=== PATIENT | female | born 1950 | race Caucasian/White ===

== ENCOUNTER → 2016-04-16 | Outpatient (CLI) | payer MEDICARE ==
[~2016-04-16] MED LIST: /WARF25TA; ACET65TA; CALC12502; CETI10TA; FLON0.05; FOSA5TAB; GLUC500T; PERC5TAB8; PRIL20CA; ZOCO40TA
--- NOTE | 2016-04-16 15:46 | REP ---
CHEST, TWO VIEWS: COMPARISON: 05/07/2015 Once again, there are fibrotic changes seen throughout the lung hamlin, status quo. Once again, there is evidence of lung field hyperexpansion and bullous emphysematous change, status quo. No acute patchy parenchymal opacities have developed. The heart is not enlarged. The osseous structures are stable and intact. IMPRESSION: Stable appearing chronic changes without plain radiographic evidence of acute cardiopulmonary disease. Signed by Behzad Fenton DO 04/16/2016 04:40 P
== END ==
LOC: M WUC 15:06
PROVIDERS: ATTEND Physician Assistant
DX: J44.1 Chronic obstructive pulmonary disease with (acute) exacerbation (principal)

== ENCOUNTER → 2016-09-25 | Outpatient (CLI) | payer MEDICARE ==
--- NOTE | 2016-09-26 07:54 | REP ---
Left fifth toe series: Four views. History: Contusion. Findings: There is a nondisplaced but slightly angulated fracture of the proximal phalanx, apex medial. There is also a chip fracture of the distal phalanx. There is associated soft-tissue swelling of the fifth toe. Impression: Fifth proximal and distal phalangeal fractures. Signed by Pepe Lundy MD 09/26/2016 08:59 A
== END ==
LOC: M WUC 14:01
PROVIDERS: ATTEND Physician Assistant
DX: S92.515A Nondisplaced fracture of proximal phalanx of left lesser toe(s), initial encounter for closed fracture (principal); S92.535A Nondisplaced fracture of distal phalanx of left lesser toe(s), initial encounter for closed fracture; X58.XXXA Exposure to other specified factors, initial encounter; Y93.9 Activity, unspecified; Y92.9 Unspecified place or not applicable; Y99.8 Other external cause status

== ENCOUNTER → 2016-10-19 | Outpatient (CLI) | payer MEDICARE ==
[~2016-10-19] MED LIST changes: +ALB2.5NEB NEB; +ASPI81TAEC PO; +AZEL0.1S3; +BUPR15TASR; +CALC1TAB30 PO; +CETI10TA PO; +DEXT30SUSP PO; -GLUC500T; +GLUC500T PO; +LEVA750T7 PO; +MONT10TA2 PO; +NICO14PA TD; +OMEP40CA2 PO; +PARO20TA3 PO; +PRAV80TA2 PO; +PRED20TA PO; -PRIL20CA; +PRIL20CA PO; +PROAAER10 INH; +SPIR12.9 INH; +SYMB16INH INH; +SYMBICORT
--- NOTE | 2016-10-19 18:57 | REP ---
HISTORY: Pain to the 5th digit of the left foot. COMPARISON: None. There is a mid diaphyseal fracture of the proximal phalanx of the fifth digit with lateral angulation. Signed by Behzad Fenton DO 10/19/2016 07:52 P
== END ==
LOC: M WUC 17:01
PROVIDERS: ATTEND Physician Assistant
DX: S92.512A Displaced fracture of proximal phalanx of left lesser toe(s), initial encounter for closed fracture (principal); X58.XXXA Exposure to other specified factors, initial encounter; Y93.9 Activity, unspecified; Y92.9 Unspecified place or not applicable; Y99.8 Other external cause status

== ENCOUNTER → 2016-12-07 | Outpatient (REF) | payer MEDICARE ==
[2016-12-07 16:27] LABS: BLOOD UREA NITROGEN 13 MG/DL (7-18); CREATININE FOR GFR 0.93 MG/DL (0.55-1.02); GLOMERULAR FILTRATION RATE > 60.0 (>45)
== END ==
LOC: M LABDRAW1 13:01
PROVIDERS: ATTEND Physician Assistant Surgical
DX: R22.41 Localized swelling, mass and lump, right lower limb (principal)

== ENCOUNTER 2017-01-12 17:39 | Inpatient (IN) | payer MEDICARE ==
[~2017-01-12] VITALS: Ht 157.5 cm; Wt 64.8 kg
[~2017-01-12 17:39] MED LIST changes: -ALB2.5NEB NEB; -ASPI81TAEC PO; -AZEL0.1S3; -BUPR15TASR; -CALC1TAB30 PO; -CETI10TA; -DEXT30SUSP PO; -LEVA750T7 PO; -MONT10TA2 PO; -NICO14PA TD; -OMEP40CA2 PO; -PARO20TA3 PO; -PRAV80TA2 PO; -PRED20TA PO; -PROAAER10 INH; -SPIR12.9 INH; -SYMB16INH INH; -SYMBICORT
[2017-01-12] MEDS ORDERED: MONT10TA2 PO (17:53)
[2017-01-12] MEDS ORDERED: SYMBICORT (17:53)
[2017-01-12] MEDS ORDERED: CETI10TA (17:53)
[2017-01-12] MEDS ORDERED: SPIR12.9 INH (17:53)
[2017-01-12] MEDS ORDERED: BUPR15TASR (17:53)
[2017-01-12 18:29] LABS: BASO # 0.1 10^3/uL (0.0-0.2); BASO % 0.4 % (0.0-1.0); EOS # 0.1 10^3/uL (0.0-0.50); EOS % 0.6 % (0.0-3.0); IMMATURE GRANULOCYTE % 0.3 % (0-0); LYMPH % 11.3 % (24.0-44.0); MEAN CORPUSCULAR HEMOGLOBIN 30.2 pg (27.0-33.0); MEAN CORPUSCULAR HGB CONC 33.9 g/dl (32.0-36.5); MEAN CORPUSCULAR VOLUME 89.3 fl (80.0-96.0); MONO % 6.9 % (0.0-5.0); NEUTROPHILS % 80.5 % (36.0-66.0); PLATELET COUNT, AUTOMATED 333 10^3/uL (150-450); RED CELL DISTRIBUTION WIDTH 13.6 % (11.5-14.5); WHITE BLOOD COUNT 17.4 10^3/uL (4.0-10.0)
[2017-01-12] MEDS ORDERED: methylPREDNISolone INJ 125 MG/2 ML VIAL (J2930) IV ONE (18:30)
[2017-01-12 18:34] LABS: ADD MORPHOLOGY? NO; MONO # 1.2 10^3/uL (0.0-0.8)
[2017-01-12] MEDS: IPRATROPIUM 0.5MG/ALBUTEROL 2.5MG INH SOL UD 3ML (DUONEB)(J7620) NEB SCH ×3 (18:41→19:36)
[2017-01-12 18:48] LABS: ANION GAP 6 MEQ/L (8-16); BLOOD UREA NITROGEN 15 MG/DL (7-18); CALCIUM LEVEL 9.5 MG/DL (8.8-10.2); CARBON DIOXIDE LEVEL 28 MEQ/L (21-32); CHLORIDE LEVEL 102 MEQ/L (98-107); CREATININE FOR GFR 0.83 MG/DL (0.55-1.02); GLOMERULAR FILTRATION RATE > 60.0 (>45); GLUCOSE, FASTING 104 MG/DL (80-110); POTASSIUM SERUM 4.1 MEQ/L (3.5-5.1); SODIUM LEVEL 136 MEQ/L (136-145)
--- NOTE | 2017-01-12 19:44 | REP ---
Chest two views HISTORY: Shortness of breath Comparison: 04/16/2016 A diffuse increase in interstitial markings is present in the lungs consistent with chronic interstitial fibrosis. Linear density is present in the left lower lobe consistent with scar. The heart is normal in size. The pulmonary vasculature is normal in appearance. There is an old compression fracture of a mid thoracic vertebral body. IMPRESSION: Chronic interstitial fibrosis. Signed by Lee Waller MD 01/12/2017 07:35 P
[2017-01-12 20:26] VITALS: O2SAT 83
[2017-01-12] MEDS ORDERED: PRED20TA PO (20:45)
[2017-01-12] MEDS ORDERED: PROAAER10 INH (21:45)
[2017-01-12] MEDS ORDERED: OMEP40CA2 PO (21:45)
[2017-01-12] MEDS ORDERED: AZEL0.1S3 (21:45)
[2017-01-12] MEDS ORDERED: CALC1TAB30 PO (21:45)
[2017-01-12] MEDS ORDERED: PRAV80TA2 PO (21:45)
[2017-01-12] MEDS ORDERED: ASPI81TAEC PO (21:45)
[2017-01-12] MEDS ORDERED: PARO20TA3 PO (21:45)
[2017-01-12] MEDS ORDERED: SYMB16INH INH (21:45)
[2017-01-12] MEDS ORDERED: ISOVUE-370 76% 100ML VIAL (Q9967) As Ordered ONE (22:44)
--- NOTE | 2017-01-12 23:10 | REPUSA ---
CT angiogram of the chest Clinical statement: Chest pain and shortness of breath. Technique: Multiple axial CT images were obtained from the thoracic inlet through the upper abdomen a fter a bolus administration of nonionic intravenous contrast. Coronal and sagittal reconstructions we re also obtained. Comparison: 01/23/2009. Findings: The pulmonary arteries are well-opacified with contrast, with no intraluminal filling defec ts to suggest embolism. The thoracic aorta is unremarkable. Thyroid gland is within normal limits. Th ere is no thoracic lymphadenopathy. There are no pericardial or pleural effusions. The severe emphyse ma, with upper lobe predominance, which is grossly stable. There is focal consolidation in the right lung base. Limited imaging of the upper abdomen is unremarkable. There are no suspicious osseous les ions. Impression: 1. No evidence of pulmonary embolism. 2. Focal consolidation in the right lung base, either representing infiltrate or atelectasis. 3. Moderately severe COPD, grossly stable.
[2017-01-13 01:47] VITALS: BP 137/61
[2017-01-13 06:00] VITALS: BP 121/59
[2017-01-13] MEDS ORDERED: DEXTROSE 50% 50 ML SYRINGE IV PRN ×2 (07:15→08:15)
[2017-01-13] MEDS ORDERED: ALBUTEROL SULFATE 2.5 MG/0.5 ML INH NEB SOLN NEB PRN (07:15)
[2017-01-13] MEDS ORDERED: GLUCAGON FOR INJ 1 MG VIAL (J1610) SC PRN (07:15)
[2017-01-13] MEDS ORDERED: GLUCOSE 4 GM CHEW TABLET PO PRN (07:15)
[2017-01-13] MEDS ORDERED: BUDESONIDE 0.5 MG/2 ML INHALATION SUSPENSION INH SCH (08:00)
[2017-01-13] MEDS ORDERED: methylPREDNISolone INJ 40 MG/1 ML VIAL (J2920) IV SCH (08:00)
[2017-01-13] MEDS ORDERED: FORMOTEROL FUMARATE 20 MCG/2 ML INHALATION SOLUTION (PERFOROMIST) INH SCH (08:00)
[2017-01-13] MEDS: TIOTROPIUM INHALER/CAPSULE (SPIRIVA) INH SCH (08:21)
--- NOTE | 2017-01-13 08:21 | HPEPDOC ---
General Date of Admission Jan 13, 2017 at 00:24 Primary Care Physician: Kaitlynn Qureshi PA-C Attending Physician: PRESTON MONTEZ MD Chief Complaint The patient is a 66-year-old female admitted with a reason for visit of Copd With Exacerbation. Source: Patient, Family Exam Limitations: No limitations Timing/Duration: 24 hours Severity: Moderate Associated Symptoms: Shortness of breath History of Present Illness 66-year-old female, history of COPD, diabetes mellitus, hyperlipidemia, GERD, chronic interstitial pulmonary fibrosis presented with fever, chills, shortness of breath for past 3 days which is getting worse. She was recently admitted in [place] in June 2016 for similar symptoms. Denies any chest pain, palpitation sick contact recent travel, lightheadedness, dizziness. She is accompanied with the daughter. Home Medications Scheduled (Calcium 500+D 500-200 mg-Unit) 1 Tab Tab, 1 TAB PO QHS, (Reported) Aspirin (Aspirin EC) 81 Mg Tabec, 81 MG PO DAILY, (Reported) Azelastine Hydrochloride (Azelastine HCl) 137 Mcg/[place] Spr, 1 SPRAY NA BID, ( Reported) Budesonide/Formoterol (Symbicort 160-4.5 Mcg/Act) 60 Puff/Inhaler Aers, 2 PUFF INH BID, (Reported) Cetirizine Hcl (Zyrtec) 10 Mg Tab, 10 MG PO DAILY, (Reported) Fluticasone Propionate (Flonase) 0.05 % Spr, 1 SPRAY NA BID, (Reported) Metformin Hydrochloride (Glucophage) 500 Mg Tab, 500 MG PO QHS, (Reported) Montelukast Sodium (Montelukast Sodium) 10 Mg Tab, 10 MG PO DAILY, (Reported) Omeprazole (Omeprazole) 40 Mg Cap, 40 MG PO QHS, (Reported) Paroxetine (Paroxetine HCl) 20 Mg Tab, 20 MG PO DAILY, (Reported) Pravastatin Sodium (Pravastatin Sodium) 80 Mg Tab, 80 MG PO QHS, (Reported) Tiotropium [place] Monohydrate (Spiriva Respimat) 2.5 Mcg/Act Spr, 2 PUFFS INH DAILY, (Reported) Scheduled PRN Albuterol Sulfate (Proair Hfa) 108 Mcg/Act Aer, 2 PUFF INH QID PRN for SHORTNESS OF BREATH, (Reported) Allergies Coded Allergies: Vancomycin (Verified Allergy, Severe, SEVERE REACION?, 07/11/12) Penicillins (Verified Adverse Reaction, Mild, N\V, 07/11/12) Penicillins Cross Reactors (Verified Adverse Reaction, Mild, N\V, 07/11/12) Past Medical History Medical History Diabetes mellitus, hyperlipidemia, COPD, GERD Surgical History Left hip replacement, bilateral rotator cuff repair, 4 times Ulnar nerve release on right elbow, 2 times, carpal tunnel release on the right side, 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 Dyspnea, Lt Headedness Gastrointestinal: Denies: Nausea, Vomiting, Abdominal Pain, Diarrhea Genitourinary: Denies: Dysuria, Frequency, Incontinence, Retention Hematologic: Denies: Bruising, Bleeding Excessively Musculoskeletal: Denies: Neck Pain, Back Pain, Joint Pain, Muscle Pain, Spasms Neurological: Denies: Weakness, Numbness, Change in speech, Confusion Psych: Reports: Mood Normal, Denies: Depression, Memory Issues Physical Examination General Exam: Positive: Alert, No Acute Distress Eye Exam: Positive: PERRLA, Conjunctiva & lids normal, EOMI, Negative: Sclera icteric ENT Exam: Positive: Atraumatic, Mucous membr. moist/pink, Pharynx Normal Neck Exam: Positive: Supple, Negative: JVD, thyromegaly Chest Exam: Positive: Rhonchi, Wheezing, Diminished Heart Exam: Positive: Rate Normal, Regular Rhythm, Normal S1, Normal S2, Negative: Murmurs, Rubs Telemetry: Positive: No significant arrhythmia Abdomen Exam: Positive: Normal bowel sounds, Soft, Negative: Tenderness, Hepatospenomegaly Extremity Exam: Positive: Normal pulses, Negative: Clubbing, Cyanosis, Edema Skin Exam: Positive: Nl turgor and temperature, Negative: Breakdown, Lesion Neuro Exam: Positive: Normal Speech, Cranial Nerves 3-12 NL, Reflexes 2+ Psych Exam: Positive: Mental status NL, Mood NL, Oriented x 3 Vital Signs Vital Signs Date Time Temp Pulse Resp B/P (MAP) Pulse Ox O2 Delivery O2 Flow Rate FiO2 01/13/17 06:00 98.8 76 18 121/59 (79) 91 Nasal Cannula 1.0 Laboratory Data Labs 24H Laboratory Tests 2 01/12/17 18:15: Immature Granulocyte % (Auto) 0.3H, White Blood Count 17.4H, Red Blood Count 4.30, Hemoglobin 13.0, Hematocrit 38.4, Mean Corpuscular Volume 89.3, Mean Corpuscular Hemoglobin 30.2, Mean Corpuscular Hemoglobin Concent 33.9, Red Cell Distribution Width 13.6, Platelet Count 333, Neutrophils (%) (Auto) 80.5H, Lymphocytes (%) (Auto) 11.3L, Monocytes (%) (Auto) 6.9H, Eosinophils (%) (Auto) 0.6, Basophils (%) (Auto) 0.4, Neutrophils # (Auto) 14.0H, Lymphocytes # (Auto) 2.0, Monocytes # (Auto) 1.2H, Eosinophils # (Auto) 0.1, Basophils # (Auto) 0.1, Immature Granulocyte # (Auto) 0.1H, Nucleated Red Blood Cells % (auto) 0.0, Anion Gap 6L, Glomerular Filtration Rate > 60.0, Blood Urea Nitrogen 15, Creatinine 0.83, Sodium Level 136, Potassium Level 4.1, Chloride Level 102, Carbon Dioxide Level 28, Calcium Level 9.5 01/13/17 07:36: Bedside Glucose (Misc Panel) 182H CBC/BMP Laboratory Tests 01/12/17 18:15 Red Blood Count 4.30, Mean Corpuscular Volume 89.3, Mean Corpuscular Hemoglobin 30.2, Mean Corpuscular Hemoglobin Concent 33.9, Red Cell Distribution Width 13.6 , Neutrophils (%) (Auto) 80.5 H, Lymphocytes (%) (Auto) 11.3 L, Monocytes (%) ( Auto) 6.9 H, Eosinophils (%) (Auto) 0.6, Basophils (%) (Auto) 0.4, Neutrophils # (Auto) 14.0 H, Lymphocytes # (Auto) 2.0, Monocytes # (Auto) 1.2 H, Eosinophils # (Auto) 0.1, Basophils # (Auto) 0.1, Calcium Level 9.5 Assessment/Plan 66-year-old female, history of COPD, current smoker, presented with generalized weakness, shortness of breath, cough Plan / VTE VTE Prophylaxis Ordered?: Yes Plan Plan Pneumonia. Chest x-ray showed chronic interstitial fibrosis and WBC 17.4, presented via started on IV Levaquin as patient is allergic to penicillin and vancomycin, CT angio of chest showed right lower lobe pneumonia, no pulmonary embolism. COPD exacerbation = continue with oxygen, DuoNeb, IV Solu-Medrol. Tobacco abuse. Continue with nicotine patch. Due to prophylaxis. Heparin subcutaneous Disposition This and will likely be discharged home in 2-3 days on prednisone taper Diet: Continue Current Activity: Continue Current Therapy: PT Respiratory: Increase Oxygen Diagnostics: Repeat Labs in AM Anticipated Discharge: Home ELSY CARDENAS MD Jan 13, 2017 08:21
[2017-01-13] MEDS: SYMBICORT 160/4.5MCG INHALER 6GM INH SCH ×2 (08:30→20:38)
[2017-01-13] MEDS: IPRATROPIUM 0.5MG/ALBUTEROL 2.5MG INH SOL UD 3ML (DUONEB)(J7620) NEB SCH ×3 (08:30→20:00)
[2017-01-13] MEDS ORDERED: LevoFLOXacin IV 750 MG in APPROPRIATE DILUENT 1 EA IV SCH (09:00)
[2017-01-13] MEDS: HumaLOG INSULIN (NovoLOG) PER UNIT SC SCH ×4 (09:06→21:00)
[2017-01-13] MEDS: MONTELUKAST 10 MG TAB PO SCH (09:06)
[2017-01-13] MEDS: FLUTICASONE PROP 0.05% NASAL SPRAY 16 GM (FLONASE) SCH ×2 (09:06→21:27)
[2017-01-13] MEDS: CETIRIZINE (ZyrTEC) 10 MG TAB PO SCH (09:06)
[2017-01-13] MEDS: ASPIRIN 81 MG ENTERIC TAB PO SCH (09:06)
[2017-01-13] MEDS: PARoxetine 20 MG TAB PO SCH (09:06)
[2017-01-13] MEDS: NICOTINE 14 MG/24 HR TRANSDERMAL TD SCH (09:07)
[2017-01-13] MEDS: predniSONE 20 MG TAB PO SCH (11:52)
[2017-01-13] MEDS ORDERED: HumaLOG INSULIN (NovoLOG) PER UNIT SC SCH (12:00)
[2017-01-13 14:00] VITALS: BP 139/65
[2017-01-13 19:50] VITALS: BP 126/60
[2017-01-13] MEDS: OMEPRAZOLE 20 MG CAP PO SCH (21:26)
[2017-01-13] MEDS: PRAVASTATIN 20 MG TAB PO SCH (21:26)
[2017-01-14] MEDS: IPRATROPIUM 0.5MG/ALBUTEROL 2.5MG INH SOL UD 3ML (DUONEB)(J7620) NEB SCH ×4 (00:44→19:42)
[2017-01-14 05:05] VITALS: BP 140/67
--- NOTE | 2017-01-14 05:56 | ECGEPIP ---
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
[2017-01-14 06:33] LABS: BASO % 0.3 % (0.0-1.0); EOS # 0.1 10^3/uL (0.0-0.50); EOS % 0.5 % (0.0-3.0); IMMATURE GRANULOCYTE % 0.7 % (0-0); LYMPH # 2.7 10^3/uL (1.5-4.5); LYMPH % 20.3 % (24.0-44.0); MEAN CORPUSCULAR HEMOGLOBIN 29.8 pg (27.0-33.0); MEAN CORPUSCULAR HGB CONC 33.1 g/dl (32.0-36.5); MEAN CORPUSCULAR VOLUME 90.2 fl (80.0-96.0); MONO % 7.7 % (0.0-5.0); NEUTROPHILS # 9.4 10^3/uL (1.8-7.7); NEUTROPHILS % 70.5 % (36.0-66.0); PLATELET COUNT, AUTOMATED 313 10^3/uL (150-450); RED CELL DISTRIBUTION WIDTH 13.7 % (11.5-14.5); WHITE BLOOD COUNT 13.3 10^3/uL (4.0-10.0)
[2017-01-14 07:02] LABS: ANION GAP 8 MEQ/L (8-16); BLOOD UREA NITROGEN 17 MG/DL (7-18); CALCIUM LEVEL 8.5 MG/DL (8.8-10.2); CARBON DIOXIDE LEVEL 26 MEQ/L (21-32); CHLORIDE LEVEL 107 MEQ/L (98-107); CREATININE FOR GFR 0.81 MG/DL (0.55-1.02); GLOMERULAR FILTRATION RATE > 60.0 (>45); GLUCOSE, FASTING 110 MG/DL (80-110); POTASSIUM SERUM 4.1 MEQ/L (3.5-5.1); SODIUM LEVEL 141 MEQ/L (136-145)
[2017-01-14] MEDS: TIOTROPIUM INHALER/CAPSULE (SPIRIVA) INH SCH (08:11)
[2017-01-14] MEDS: SYMBICORT 160/4.5MCG INHALER 6GM INH SCH (08:12)
[2017-01-14] MEDS ORDERED: DEXTROMETHORPHAN 60MG/10ML SUSP 90ML BTL(DELSYM) PO PRN (09:00)
[2017-01-14] MEDS: HumaLOG INSULIN (NovoLOG) PER UNIT SC SCH ×4 (09:21→20:46)
[2017-01-14] MEDS: ASPIRIN 81 MG ENTERIC TAB PO SCH (09:23)
[2017-01-14] MEDS: FLUTICASONE PROP 0.05% NASAL SPRAY 16 GM (FLONASE) SCH ×2 (09:23→20:46)
[2017-01-14] MEDS: predniSONE 20 MG TAB PO SCH (09:23)
[2017-01-14] MEDS: MONTELUKAST 10 MG TAB PO SCH (09:23)
[2017-01-14] MEDS: CETIRIZINE (ZyrTEC) 10 MG TAB PO SCH (09:23)
[2017-01-14] MEDS: PARoxetine 20 MG TAB PO SCH (09:23)
[2017-01-14] MEDS: NICOTINE 14 MG/24 HR TRANSDERMAL TD SCH (09:23)
[2017-01-14] MEDS: LevoFLOXacin 750 MG TABLET PO SCH (09:25)
[2017-01-14] MEDS: BRIMONIDINE 0.15% OPHTH SOLN 5 ML OD SCH ×2 (10:59→20:46)
--- NOTE | 2017-01-14 11:39 | IPNPDOC ---
Subjective Date Seen The patient was seen on 01/14/17. Subjective Chief Complaint/HPI The patient is a 66-year-old female admitted with a reason for visit of Copd With Exacerbation. Events since last encounter still becoming very SOB on exertion , also had severe bouts of coughing all night , no nausea or vomiting or abdominal pain , no chest pain or palpitation. Objective Physical Examination General Exam: Positive: Alert, No Acute Distress Eye Exam: Positive: PERRLA, Conjunctiva & lids normal, EOMI, Negative: Sclera icteric ENT Exam: Positive: Atraumatic, Mucous membr. moist/pink, Pharynx Normal Neck Exam: Positive: Supple, Negative: JVD, thyromegaly Chest Exam: Positive: Rhonchi, Wheezing, Diminished Heart Exam: Positive: Rate Normal, Regular Rhythm, Normal S1, Normal S2, Negative: Murmurs, Rubs Telemetry: Positive: No significant arrhythmia Abdomen Exam: Positive: Normal bowel sounds, Soft, Negative: Tenderness, Hepatospenomegaly Extremity Exam: Positive: Normal pulses, Negative: Clubbing, Cyanosis, Edema Skin Exam: Positive: Nl turgor and temperature, Negative: Breakdown, Lesion Neuro Exam: Positive: Normal Speech, Cranial Nerves 3-12 NL, Reflexes 2+ Psych Exam: Positive: Mental status NL, Mood NL, Oriented x 3 Assessment /Plan Problems (1) Acute bronchitis Status: Acute Problem Text: continue with levofloxacin. (2) COPD with exacerbation Status: Acute Problem Text: continue with nebulizations , prednisone, (3) GERD (gastroesophageal reflux disease) Status: Chronic Problem Text: on omeprazole (4) Hyperlipidemia Status: Chronic Problem Text: on statin will continue (5) Diabetes Status: Chronic Problem Text: metformin held will continue with insulin as per sliding scale (6) Environmental allergies Status: Chronic Problem Text: will continue with loratadine and sigulair. Plan/VTE VTE Prophylaxis Ordered?: Yes Plan Diet: Continue Current Activity: Continue Current Therapy: PT Respiratory: Increase Oxygen Diagnostics: Repeat Labs in AM Anticipated Discharge: Home VS, I&O, 24H, [place] Vital Signs/I&O Vital Signs Date Time Temp Pulse Resp B/P (MAP) Pulse Ox O2 Delivery O2 Flow Rate FiO2 01/14/17 05:05 99.6 77 18 140/67 (91) 92 Room Air 01/13/17 09:00 1.0 Laboratory Data 24H LABS Laboratory Tests 2 01/13/17 16:28: Bedside Glucose (Misc Panel) 166H 01/13/17 19:53: Bedside Glucose (Misc Panel) 214H 01/14/17 05:53: Immature Granulocyte % (Auto) 0.7H, White Blood Count 13.3H, Red Blood Count 3.99L, Hemoglobin 11.9L, Hematocrit 36.0, Mean Corpuscular Volume 90.2, Mean Corpuscular Hemoglobin 29.8, Mean Corpuscular Hemoglobin Concent 33.1, Red Cell Distribution Width 13.7, Platelet Count 313, Neutrophils (%) (Auto) 70.5H, Lymphocytes (%) (Auto) 20.3L, Monocytes (%) (Auto) 7.7H, Eosinophils (%) (Auto) 0.5, Basophils (%) (Auto) 0.3, Neutrophils # (Auto) 9.4H, Lymphocytes # (Auto) 2.7, Monocytes # (Auto) 1.0H, Eosinophils # (Auto) 0.1, Basophils # (Auto) 0.0, Immature Granulocyte # (Auto) 0.1H, Nucleated Red Blood Cells % (auto) 0.0, Anion Gap 8, Glomerular Filtration Rate > 60.0, Blood Urea Nitrogen 17, Creatinine 0.81, Sodium Level 141, Potassium Level 4.1, Chloride Level 107, Carbon Dioxide Level 26, Calcium Level 8.5L 01/14/17 11:19: Bedside Glucose (Misc Panel) 176H CBC/BMP Laboratory Tests 01/14/17 05:53 Red Blood Count 3.99 L, Mean Corpuscular Volume 90.2, Mean Corpuscular Hemoglobin 29.8, Mean Corpuscular Hemoglobin Concent 33.1, Red Cell Distribution Width 13.7, Neutrophils (%) (Auto) 70.5 H, Lymphocytes (%) (Auto) 20.3 L, Monocytes (%) (Auto) 7.7 H, Eosinophils (%) (Auto) 0.5, Basophils (%) ( Auto) 0.3, Neutrophils # (Auto) 9.4 H, Lymphocytes # (Auto) 2.7, Monocytes # ( Auto) 1.0 H, Eosinophils # (Auto) 0.1, Basophils # (Auto) 0.0, Calcium Level 8.5 L PRESTON MONTEZ MD Jan 14, 2017 11:39
[2017-01-14] MEDS: FORMOTEROL FUMARATE 20 MCG/2 ML INHALATION SOLUTION (PERFOROMIST) INH SCH ×2 (11:51→19:42)
[2017-01-14] MEDS: BUDESONIDE 0.5 MG/2 ML INHALATION SUSPENSION INH SCH ×2 (11:51→19:41)
[2017-01-14 14:00] VITALS: BP 126/58
[2017-01-14] MEDS: OMEPRAZOLE 20 MG CAP PO SCH (20:45)
[2017-01-14] MEDS: PRAVASTATIN 20 MG TAB PO SCH (20:46)
[2017-01-14] MEDS ORDERED: LATANOPROST 0.005% OPHTH SOLN 2.5 ML OD SCH (21:00)
[2017-01-14 21:10] VITALS: BP 131/58
[2017-01-15] MEDS: IPRATROPIUM 0.5MG/ALBUTEROL 2.5MG INH SOL UD 3ML (DUONEB)(J7620) NEB SCH ×4 (02:00→20:00)
[2017-01-15 05:26] VITALS: BP 153/73
[2017-01-15] MEDS: LevoFLOXacin 750 MG TABLET PO SCH (05:49)
[2017-01-15 06:07] LABS: BASO # 0.1 10^3/uL (0.0-0.2); BASO % 0.7 % (0.0-1.0); EOS # 0.1 10^3/uL (0.0-0.50); IMMATURE GRANULOCYTE % 1.6 % (0-0); LYMPH # 3.2 10^3/uL (1.5-4.5); LYMPH % 30.1 % (24.0-44.0); MEAN CORPUSCULAR HEMOGLOBIN 29.5 pg (27.0-33.0); MEAN CORPUSCULAR HGB CONC 32.5 g/dl (32.0-36.5); MEAN CORPUSCULAR VOLUME 90.9 fl (80.0-96.0); MONO % 9.4 % (0.0-5.0); NEUTROPHILS % 57.2 % (36.0-66.0); PLATELET COUNT, AUTOMATED 326 10^3/uL (150-450); RED CELL DISTRIBUTION WIDTH 13.5 % (11.5-14.5); WHITE BLOOD COUNT 10.5 10^3/uL (4.0-10.0)
[2017-01-15 06:34] LABS: ANION GAP 6 MEQ/L (8-16); BLOOD UREA NITROGEN 19 MG/DL (7-18); CALCIUM LEVEL 8.9 MG/DL (8.8-10.2); CARBON DIOXIDE LEVEL 28 MEQ/L (21-32); CHLORIDE LEVEL 107 MEQ/L (98-107); GLOMERULAR FILTRATION RATE > 60.0 (>45); GLUCOSE, FASTING 100 MG/DL (80-110); POTASSIUM SERUM 3.9 MEQ/L (3.5-5.1); SODIUM LEVEL 141 MEQ/L (136-145)
[2017-01-15] MEDS: BUDESONIDE 0.5 MG/2 ML INHALATION SUSPENSION INH SCH ×2 (07:11→19:49)
[2017-01-15] MEDS: FORMOTEROL FUMARATE 20 MCG/2 ML INHALATION SOLUTION (PERFOROMIST) INH SCH ×2 (07:11→19:49)
[2017-01-15] MEDS: TIOTROPIUM INHALER/CAPSULE (SPIRIVA) INH SCH (07:11)
[2017-01-15] MEDS: HumaLOG INSULIN (NovoLOG) PER UNIT SC SCH ×4 (07:27→20:58)
[2017-01-15] MEDS ORDERED: INFLUENZA VIRUS VACCINE HIGH DOSE 0.5 ML SYRINGE (90662) IM ONE (09:00)
[2017-01-15] MEDS: CETIRIZINE (ZyrTEC) 10 MG TAB PO SCH (09:18)
[2017-01-15] MEDS: MONTELUKAST 10 MG TAB PO SCH (09:18)
[2017-01-15] MEDS: PARoxetine 20 MG TAB PO SCH (09:19)
[2017-01-15] MEDS: ASPIRIN 81 MG ENTERIC TAB PO SCH (09:19)
[2017-01-15] MEDS: FLUTICASONE PROP 0.05% NASAL SPRAY 16 GM (FLONASE) SCH ×2 (09:19→20:54)
[2017-01-15] MEDS: predniSONE 20 MG TAB PO SCH (09:19)
[2017-01-15] MEDS: BRIMONIDINE 0.15% OPHTH SOLN 5 ML OD SCH (09:20)
[2017-01-15] MEDS: NICOTINE 14 MG/24 HR TRANSDERMAL TD SCH (09:20)
--- NOTE | 2017-01-15 10:51 | IPNPDOC ---
Subjective Date Seen The patient was seen on 01/15/17. Subjective Chief Complaint/HPI The patient is a 66-year-old female admitted with a reason for visit of Copd With Exacerbation. Events since last encounter feeling a little better this am , bringing up more phlegm today yellowish in color, though continues to feel very weak , however says that she is breathing much better and the best since june. No fever or chills, no chest pain , still has some bout of cough. no nausea or vomiting , no abdominal pain, Objective Physical Examination General Exam: Positive: Alert, No Acute Distress Eye Exam: Positive: PERRLA, Conjunctiva & lids normal, EOMI, Negative: Sclera icteric ENT Exam: Positive: Atraumatic, Mucous membr. moist/pink, Pharynx Normal Neck Exam: Positive: Supple, Negative: JVD, thyromegaly Chest Exam: Positive: Rhonchi, Wheezing, Diminished Heart Exam: Positive: Rate Normal, Regular Rhythm, Normal S1, Normal S2, Negative: Murmurs, Rubs Telemetry: Positive: No significant arrhythmia Abdomen Exam: Positive: Normal bowel sounds, Soft, Negative: Tenderness, Hepatospenomegaly Extremity Exam: Positive: Normal pulses, Negative: Clubbing, Cyanosis, Edema Skin Exam: Positive: Nl turgor and temperature, Negative: Breakdown, Lesion Neuro Exam: Positive: Normal Speech, Cranial Nerves 3-12 NL, Reflexes 2+ Psych Exam: Positive: Mental status NL, Mood NL, Oriented x 3 Assessment /Plan Problems (1) Acute bronchitis Status: Acute Problem Text: continue with levofloxacin. (2) COPD with exacerbation Status: Acute Problem Text: continue with nebulizations , prednisone, (3) GERD (gastroesophageal reflux disease) Status: Chronic Problem Text: on omeprazole (4) Hyperlipidemia Status: Chronic Problem Text: on statin will continue (5) Diabetes Status: Chronic Problem Text: metformin held will continue with insulin as per sliding scale (6) Environmental allergies Status: Chronic Problem Text: will continue with loratadine and sigulair. Plan/VTE VTE Prophylaxis Ordered?: Yes Plan Diet: Continue Current Activity: Continue Current Therapy: PT Respiratory: Increase Oxygen Diagnostics: Repeat Labs in AM Anticipated Discharge: Home VS, I&O, 24H, Fishbone Vital Signs/I&O Vital Signs Date Time Temp Pulse Resp B/P (MAP) Pulse Ox O2 Delivery O2 Flow Rate FiO2 01/15/17 09:15 Room Air 01/15/17 05:26 99.4 73 20 153/73 (99) 90 01/14/17 20:00 1.0 Laboratory Data 24H LABS Laboratory Tests 2 01/14/17 11:19: Bedside Glucose (Misc Panel) 176H 01/14/17 16:25: Bedside Glucose (Misc Panel) 165H 01/14/17 20:17: Bedside Glucose (Misc Panel) 169H 01/15/17 05:46: Anion Gap 6L, Glomerular Filtration Rate > 60.0, Blood Urea Nitrogen 19H, Creatinine 0.80, Sodium Level 141, Potassium Level 3.9, Chloride Level 107, Carbon Dioxide Level 28, Calcium Level 8.9 01/15/17 05:47: Immature Granulocyte % (Auto) 1.6H, White Blood Count 10.5H, Red Blood Count 3.96L, Hemoglobin 11.7L, Hematocrit 36.0, Mean Corpuscular Volume 90.9, Mean Corpuscular Hemoglobin 29.5, Mean Corpuscular Hemoglobin Concent 32.5, Red Cell Distribution Width 13.5, Platelet Count 326, Neutrophils (%) (Auto) 57.2, Lymphocytes (%) (Auto) 30.1, Monocytes (%) (Auto) 9.4H, Eosinophils (%) (Auto) 1.0, Basophils (%) (Auto) 0.7, Neutrophils # (Auto) 6.0, Lymphocytes # (Auto) 3.2, Monocytes # (Auto) 1.0H, Eosinophils # (Auto) 0.1, Basophils # (Auto) 0.1, Immature Granulocyte # (Auto) 0.2H, Nucleated Red Blood Cells % (auto) 0.0 CBC/BMP Laboratory Tests 01/15/17 05:46 Calcium Level 8.9 01/15/17 05:47 Red Blood Count 3.96 L, Mean Corpuscular Volume 90.9, Mean Corpuscular Hemoglobin 29.5, Mean Corpuscular Hemoglobin Concent 32.5, Red Cell Distribution Width 13.5, Neutrophils (%) (Auto) 57.2, Lymphocytes (%) (Auto) 30.1, Monocytes (%) (Auto) 9.4 H, Eosinophils (%) (Auto) 1.0, Basophils (%) ( Auto) 0.7, Neutrophils # (Auto) 6.0, Lymphocytes # (Auto) 3.2, Monocytes # (Auto ) 1.0 H, Eosinophils # (Auto) 0.1, Basophils # (Auto) 0.1 Microbiology Microbiology 01/14/17 Respiratory Virus Panel (PCR) (MICKEY) - Final, Complete PRESTON MONTEZ MD Jan 15, 2017 10:51
[2017-01-15] MEDS ORDERED: ACETAMINOPHEN 325 MG TAB PO PRN (11:45)
[2017-01-15 14:00] VITALS: BP 136/64
[2017-01-15] MEDS: OMEPRAZOLE 20 MG CAP PO SCH (20:53)
[2017-01-15] MEDS: PRAVASTATIN 20 MG TAB PO SCH (20:53)
[2017-01-15 22:00] VITALS: BP 130/87
[2017-01-16] MEDS: IPRATROPIUM 0.5MG/ALBUTEROL 2.5MG INH SOL UD 3ML (DUONEB)(J7620) NEB SCH ×2 (02:00→07:25)
[2017-01-16] MEDS: LevoFLOXacin 750 MG TABLET PO SCH (05:40)
[2017-01-16 06:00] VITALS: BP 155/79
[2017-01-16 06:19] LABS: BASO # 0.1 10^3/uL (0.0-0.2); BASO % 1.1 % (0.0-1.0); EOS # 0.2 10^3/uL (0.0-0.50); EOS % 2.6 % (0.0-3.0); IMMATURE GRANULOCYTE % 2.1 % (0-0); LYMPH # 3.1 10^3/uL (1.5-4.5); LYMPH % 32.5 % (24.0-44.0); MEAN CORPUSCULAR HEMOGLOBIN 29.3 pg (27.0-33.0); MEAN CORPUSCULAR HGB CONC 32.7 g/dl (32.0-36.5); MEAN CORPUSCULAR VOLUME 89.4 fl (80.0-96.0); MONO # 0.9 10^3/uL (0.0-0.8); MONO % 9.7 % (0.0-5.0); NEUTROPHILS # 4.9 10^3/uL (1.8-7.7); PLATELET COUNT, AUTOMATED 338 10^3/uL (150-450); RED CELL DISTRIBUTION WIDTH 13.3 % (11.5-14.5); WHITE BLOOD COUNT 9.4 10^3/uL (4.0-10.0)
[2017-01-16 06:23] LABS: ADD MANUAL DIFFER NO; DIFF SLIDE NUMBER 27
[2017-01-16 06:41] LABS: ANION GAP 5 MEQ/L (8-16); BLOOD UREA NITROGEN 20 MG/DL (7-18); CALCIUM LEVEL 8.9 MG/DL (8.8-10.2); CARBON DIOXIDE LEVEL 29 MEQ/L (21-32); CHLORIDE LEVEL 105 MEQ/L (98-107); CREATININE FOR GFR 0.89 MG/DL (0.55-1.02); GLOMERULAR FILTRATION RATE > 60.0 (>45); GLUCOSE, FASTING 100 MG/DL (80-110); POTASSIUM SERUM 3.6 MEQ/L (3.5-5.1); SODIUM LEVEL 139 MEQ/L (136-145)
[2017-01-16] MEDS: HumaLOG INSULIN (NovoLOG) PER UNIT SC SCH (06:47)
[2017-01-16] MEDS: FORMOTEROL FUMARATE 20 MCG/2 ML INHALATION SOLUTION (PERFOROMIST) INH SCH (07:24)
[2017-01-16] MEDS: BUDESONIDE 0.5 MG/2 ML INHALATION SUSPENSION INH SCH (07:24)
[2017-01-16] MEDS: TIOTROPIUM INHALER/CAPSULE (SPIRIVA) INH SCH (07:24)
[2017-01-16] MEDS ORDERED: PRED20TA PO (08:35)
[2017-01-16] MEDS ORDERED: NICO14PA TD (08:35)
[2017-01-16] MEDS ORDERED: DEXT30SUSP PO (08:35)
[2017-01-16] MEDS ORDERED: LEVA750T7 PO (08:35)
[2017-01-16] MEDS ORDERED: ALB2.5NEB NEB (08:35)
[2017-01-16] MEDS: PARoxetine 20 MG TAB PO SCH (08:53)
[2017-01-16] MEDS: CETIRIZINE (ZyrTEC) 10 MG TAB PO SCH (08:53)
[2017-01-16] MEDS: MONTELUKAST 10 MG TAB PO SCH (08:53)
[2017-01-16] MEDS: FLUTICASONE PROP 0.05% NASAL SPRAY 16 GM (FLONASE) SCH (08:54)
[2017-01-16] MEDS: ASPIRIN 81 MG ENTERIC TAB PO SCH (08:54)
[2017-01-16] MEDS: predniSONE 20 MG TAB PO SCH (08:54)
[2017-01-16] MEDS: NICOTINE 14 MG/24 HR TRANSDERMAL TD SCH (08:54)
--- NOTE | 2017-01-17 15:38 | DSES ---
DATE OF ADMISSION: 01/13/2017 DATE OF DISCHARGE: 01/16/2017 PRIMARY CARE PROVIDER: Laura Owens NP DISCHARGE DIAGNOSES: 1. Acute bronchitis. 2. Chronic obstructive pulmonary disease (COPD) with exacerbation. 3. Gastroesophageal reflux disease (GERD). 4. Hyperlipidemia. 5. Diabetes. 6. Allergies. DISCHARGE MEDICATIONS: - albuterol nebulizer every four hours as needed for shortness of breath - dextromethorphan syrup 30 mg by mouth every 12 hours as needed for cough - levofloxacin 750 mg by mouth daily - nicotine patch - prednisone 40 mg by mouth daily - albuterol sulfate inhaler two puffs four times a day as needed for shortness of breath - aspirin 81 mg daily - azelastine one spray in both nostrils twice a day - Symbicort two puffs inhalation twice a day - calcium with vitamin D one tablet at bedtime - cetirizine 10 mg by mouth daily - Flonase one spray in both nostrils twice a day - metformin 500 mg at bedtime - montelukast 10 mg by mouth daily - omeprazole 40 mg at bedtime - paroxetine 20 mg by mouth daily - pravastatin 80 mg at bedtime - Spiriva two puffs inhalation daily HOSPITAL COURSE: This is a 66-year-old female who presented to the hospital with three days history of increasing cough, shortness of breath. She has been having the symptoms since June of 2016 off-and-on but gets worse and then improves. This time, it has been so bad that she has been using her inhalers without any relief so she came to the emergency room. In the emergency department (ED), the patient had CT angiogram of the chest done which did not show any evidence of pulmonary embolism. CT angiogram showed moderate to severe chronic obstructive pulmonary disease (COPD). There was a focal consolidation at the right base which was felt to be more of an atelectasis rather than infiltrate. The patient was admitted for COPD exacerbation. The patient responded well to nebulizers, steroids, and the patient was also started on levofloxacin. The patient responded well to treatment with resolution of her shortness of breath and improvement of her cough. On the day of discharge, the patient was functionally at baseline and did not have any complaints with stable vital signs. PHYSICAL EXAMINATION: VITAL SIGNS: Temperature 97.9, pulse 78, respiratory rate 18, blood pressure 155/79, pulse oximetry 95% on room air. GENERAL: The patient is awake, alert and oriented times three, sitting up in chair, in no acute distress. HEENT: Normocephalic, atraumatic. Moist mucous membranes. Anicteric eyes. CHEST: Clear to auscultation. CARDIOVASCULAR: S1, S2, regular. No rub, murmur, or gallop. ABDOMEN: Soft, nontender. Bowel sounds present. EXTREMITIES: No edema. LABORATORY DATA: WBC 9.4, hemoglobin 13, platelets 338. Sodium 139, potassium 3.6, chloride 105, bicarbonate 29, BUN 20, creatinine 0.9, calcium 8.9. Respiratory viral PCR was negative. DISPOSITION: The patient is discharged home in a stable condition. DISCHARGE INSTRUCTIONS: The patient is to followup with primary care provider in 1-2 weeks' time. Diet as tolerated. Activity as tolerated.
== END 2017-01-16 09:42 | disposition home or self-care (01) | DRG 192 ==
LOC: M ED 17:39 → M ED INP 01-13 00:24 → M MSPAV 01-13 01:47
PROVIDERS: ADMIT Internal Medicine; ATTEND Internal Medicine Nephrology
DX: J44.1 Chronic obstructive pulmonary disease with (acute) exacerbation (principal); J44.0 Chronic obstructive pulmonary disease with (acute) lower respiratory infection; E11.9 Type 2 diabetes mellitus without complications; K21.9 Gastro-esophageal reflux disease without esophagitis; E78.5 Hyperlipidemia, unspecified; J20.9 Acute bronchitis, unspecified; Z79.899 Other long term (current) drug therapy; Z79.82 Long term (current) use of aspirin; Z88.0 Allergy status to penicillin; Z96.642 Presence of left artificial hip joint; F17.200 Nicotine dependence, unspecified, uncomplicated

== ENCOUNTER → 2017-02-22 | Outpatient (REF) | payer MEDICARE ==
[~2017-02-22] MED LIST changes: +ALB2.5NEB NEB; +ASPI81TAEC PO; +AZEL0.1S3; +BUPR15TASR; +CALC1TAB30 PO; +CETI10TA; +DEXT30SUSP PO; +LEVA750T7 PO; +MONT10TA2 PO; +NICO14PA TD; +OMEP40CA2 PO; +PARO20TA3 PO; +PRAV80TA2 PO; +PRED20TA PO; +PROAAER10 INH; +SPIR12.9 INH; +SYMB16INH INH; +SYMBICORT
[2017-02-22 15:48] LABS: CALCIUM LEVEL 9.2 MG/DL (8.8-10.2)
== END ==
LOC: M LABDRAW1 15:23
PROVIDERS: ATTEND Internal Medicine Endocrinology, Diabetes & Metabolism
DX: M85.9 Disorder of bone density and structure, unspecified (principal); E55.9 Vitamin D deficiency, unspecified

== ENCOUNTER → 2017-03-09 | Outpatient (CLI) | payer MEDICARE ==
--- NOTE | 2017-03-09 15:17 | REP ---
Clinical: Follow up pneumonia. Technique: PA and lateral. Comparison: 01/12/2017. Findings: Chronic COPD/emphysematous changes and scattered fibrosis/interstitial disease remains stable. No acute consolidation. No effusion. No pneumothorax. Previously identified right basilar atelectasis appears to have resolved. Mediastinum and cardiac silhouette are normal. Skeletal structures are intact. Impression: Chronic COPD and interstitial changes. No obvious acute cardiopulmonary process. Signed by Raphael Santos MD 03/09/2017 03:08 P
== END ==
LOC: M WUC 14:52
PROVIDERS: ATTEND Nurse Practitioner Family
DX: J44.9 Chronic obstructive pulmonary disease, unspecified (principal)

== ENCOUNTER → 2017-09-08 | Outpatient (CLI) | payer MEDICARE | LOC: M WUC 10:24 | DX: M85.9 Disorder of bone density and structure, unspecified (principal); E55.9 Vitamin D deficiency, unspecified | CPT/HCPCS: 82310 ==

== ENCOUNTER → 2017-09-13 | Outpatient (REF) | payer MEDICARE ==
[2017-09-13 18:37] LABS: VITAMIN B12 LEVEL 712 PG/ML (247-911)
== END ==
LOC: M LAB REF 17:53
DX: D51.8 Other vitamin B12 deficiency anemias (principal)
CPT/HCPCS: 82607

== ENCOUNTER 2018-01-14 20:59 | Observation (INO) | payer MEDICARE ==
[2018-01-14 21:53] LABS: BASO # 0.1 10^3/uL (0.0-0.2); BASO % 0.9 % (0.0-1.0); EOS # 0.4 10^3/uL (0.0-0.50); EOS % 3.4 % (0.0-3.0); HEMATOCRIT 41.4 % (36.0-47.0); HEMOGLOBIN 13.7 g/dl (12.0-15.5); IMMATURE GRANULOCYTE % 0.5 % (0-3.0); LYMPH # 2.6 10^3/uL (1.5-4.5); LYMPH % 20.8 % (24.0-44.0); MEAN CORPUSCULAR HEMOGLOBIN 30.3 pg (27.0-33.0); MEAN CORPUSCULAR HGB CONC 33.1 g/dl (32.0-36.5); MEAN CORPUSCULAR VOLUME 91.6 fl (80.0-96.0); MONO # 0.9 10^3/uL (0.0-0.8); MONO % 7.1 % (0.0-5.0); NEUTROPHILS # 8.5 10^3/uL (1.8-7.7); NEUTROPHILS % 67.3 % (36.0-66.0); PLATELET COUNT, AUTOMATED 339 10^3/uL (150-450); RED BLOOD COUNT 4.52 10^6/uL (4.00-5.40); WHITE BLOOD COUNT 12.6 10^3/uL (4.0-10.0)
[2018-01-14 21:58] LABS: INR 0.86; PROTHROMBIN TIME 11.8 SECONDS (12.1-14.4)
[2018-01-14] MEDS: NITROGLYCERIN 2% OINT 1 GM *U/D* PKT TOP ×2 (21:59)
[2018-01-14] MEDS: ASPIRIN 325 MG TAB PO ×2 (21:59)
[2018-01-14 22:07] LABS: ANION GAP 8 MEQ/L (8-16); BLOOD UREA NITROGEN 24 MG/DL (7-18); CARBON DIOXIDE LEVEL 27 MEQ/L (21-32); CHLORIDE LEVEL 109 MEQ/L (98-107); CPK CREATINE PHOSPHOKINASE 123 U/L (26-192); CREATININE FOR GFR 1.01 MG/DL (0.55-1.30); GLOMERULAR FILTRATION RATE 57.9 (>45); GLUCOSE, FASTING 133 MG/DL (70-100); MB/CK RELATIVE INDEX 1.71 (< OR =4); SODIUM LEVEL 144 MEQ/L (136-145); TROPONIN I < 0.02 NG/ML (< 0.10)
[2018-01-14] MEDS: ACETAMINOPHEN TAB 650MG DOSE (2X325MG) PO ×2 (22:08)
[2018-01-14 22:14] LABS: PARTIAL THROMBOPLASTIN TIME 26.8 SECONDS (25.4-37.6)
[2018-01-14] MEDS ORDERED: ISOVUE-370 76% 100ML VIAL (Q9967) As Ordered ×2 (22:30)
[2018-01-15] MEDS: NICOTINE 21MG/24HR 1 EA TRANSDERMAL TD ×2 (00:55)
[2018-01-15 01:32] LABS: CPK CREATINE PHOSPHOKINASE 116 U/L (26-192); TROPONIN I < 0.02 NG/ML (< 0.10)
[2018-01-15] MEDS ORDERED: ALBUTEROL 90 MCG/ACT 8GM HFA INHALER INH ×2 (04:30)
[2018-01-15] MEDS ORDERED: ALBUTEROL SULFATE 2.5 MG/0.5 ML INH NEB SOLN INH ×2 (04:30)
[2018-01-15] MEDS ORDERED: ACETAMINOPHEN TAB 650MG DOSE (2X325MG) PO ×2 (04:30)
[2018-01-15] MEDS: SYMBICORT 160/4.5MCG INHALER 6GM INH ×4 (07:44→20:34)
[2018-01-15 08:15] LABS: BASO # 0.1 10^3/uL (0.0-0.2); BASO % 0.9 % (0.0-1.0); EOS # 0.5 10^3/uL (0.0-0.50); EOS % 5.1 % (0.0-3.0); HEMATOCRIT 37.8 % (36.0-47.0); HEMOGLOBIN 12.5 g/dl (12.0-15.5); IMMATURE GRANULOCYTE % 0.4 % (0-3.0); LYMPH # 2.8 10^3/uL (1.5-4.5); LYMPH % 31.3 % (24.0-44.0); MEAN CORPUSCULAR HEMOGLOBIN 30.4 pg (27.0-33.0); MEAN CORPUSCULAR HGB CONC 33.1 g/dl (32.0-36.5); MONO # 0.9 10^3/uL (0.0-0.8); MONO % 9.9 % (0.0-5.0); NEUTROPHILS # 4.7 10^3/uL (1.8-7.7); NEUTROPHILS % 52.4 % (36.0-66.0); PLATELET COUNT, AUTOMATED 285 10^3/uL (150-450); RED BLOOD COUNT 4.11 10^6/uL (4.00-5.40); RED CELL DISTRIBUTION WIDTH 13.8 % (11.5-14.5)
[2018-01-15 09:01] LABS: ALBUMIN 3.7 GM/DL (3.2-5.2); ALBUMIN/GLOBULIN RATIO 1.12 (1.00-1.93); ALKALINE PHOSPHATASE 55 U/L (45-117); ALT/SGPT 14 U/L (12-78); ANION GAP 6 MEQ/L (8-16); AST/SGOT 11 U/L (7-37); BILIRUBIN,TOTAL 0.2 MG/DL (0.2-1.0); BLOOD UREA NITROGEN 23 MG/DL (7-18); CALCIUM LEVEL 8.5 MG/DL (8.8-10.2); CARBON DIOXIDE LEVEL 26 MEQ/L (21-32); CHLORIDE LEVEL 111 MEQ/L (98-107); CPK CREATINE PHOSPHOKINASE 117 U/L (26-192); CREATININE FOR GFR 0.82 MG/DL (0.55-1.30); GLOMERULAR FILTRATION RATE > 60.0 (>45); GLUCOSE, FASTING 103 MG/DL (70-100); MAGNESIUM LEVEL 2.2 MG/DL (1.8-2.4); MB/CK RELATIVE INDEX 2.31 (< OR =4); POTASSIUM SERUM 4.2 MEQ/L (3.5-5.1); SODIUM LEVEL 143 MEQ/L (136-145); TROPONIN I 0.04 NG/ML (< 0.10)
[2018-01-15] MEDS: ENOXAPARIN 40 MG/0.4 ML SYRINGE (J1650) SC ×2 (09:35)
[2018-01-15] MEDS: NICOTINE 14 MG/24 HR TRANSDERMAL TOP ×2 (09:36)
[2018-01-15] MEDS: ASPIRIN 81 MG ENTERIC TAB PO ×2 (09:37)
[2018-01-15] MEDS: AZELASTINE 137MCG NASAL SPY 30 ML (ASTELIN) ×4 (09:37→20:32)
[2018-01-15] MEDS: CYANOCOBALAMIN 500 MCG TAB PO ×2 (09:37)
[2018-01-15] MEDS: PARoxetine 20 MG TAB PO ×2 (09:37)
[2018-01-15] MEDS: MONTELUKAST 10 MG TAB PO ×2 (09:37)
[2018-01-15] MEDS: CETIRIZINE (ZyrTEC) 10 MG TAB PO ×2 (09:37)
[2018-01-15] MEDS ORDERED: SLF 3 ML SYR IV ×2 (19:45)
[2018-01-15] MEDS: OMEPRAZOLE 20 MG CAP PO ×2 (20:32)
[2018-01-15] MEDS: PRAVASTATIN 20 MG TAB PO ×2 (20:32)
[2018-01-15] MEDS: SLF 3 ML SYR IV ×2 (20:33)
[2018-01-16] MEDS: SLF 3 ML SYR IV ×4 (04:21→13:22)
[2018-01-16] MEDS: SYMBICORT 160/4.5MCG INHALER 6GM INH ×2 (07:15)
[2018-01-16] MEDS: ENOXAPARIN 40 MG/0.4 ML SYRINGE (J1650) SC ×2 (08:13)
[2018-01-16] MEDS: CYANOCOBALAMIN 500 MCG TAB PO ×2 (08:14)
[2018-01-16] MEDS: NICOTINE 14 MG/24 HR TRANSDERMAL TOP ×2 (08:14)
[2018-01-16] MEDS: CETIRIZINE (ZyrTEC) 10 MG TAB PO ×2 (08:14)
[2018-01-16] MEDS: ASPIRIN 81 MG ENTERIC TAB PO ×2 (08:14)
[2018-01-16] MEDS: PARoxetine 20 MG TAB PO ×2 (08:14)
[2018-01-16] MEDS: MONTELUKAST 10 MG TAB PO ×2 (08:14)
[2018-01-16] MEDS: AZELASTINE 137MCG NASAL SPY 30 ML (ASTELIN) ×2 (08:18)
[2018-01-16 09:33] LABS: BASO # 0.1 10^3/uL (0.0-0.2); EOS # 0.5 10^3/uL (0.0-0.50); EOS % 4.7 % (0.0-3.0); HEMATOCRIT 38.9 % (36.0-47.0); HEMOGLOBIN 12.8 g/dl (12.0-15.5); IMMATURE GRANULOCYTE % 0.5 % (0-3.0); LYMPH # 2.4 10^3/uL (1.5-4.5); LYMPH % 25.3 % (24.0-44.0); MEAN CORPUSCULAR HEMOGLOBIN 30.5 pg (27.0-33.0); MEAN CORPUSCULAR HGB CONC 32.9 g/dl (32.0-36.5); MEAN CORPUSCULAR VOLUME 92.6 fl (80.0-96.0); MONO # 0.8 10^3/uL (0.0-0.8); MONO % 8.6 % (0.0-5.0); NEUTROPHILS # 5.8 10^3/uL (1.8-7.7); NEUTROPHILS % 59.9 % (36.0-66.0); PLATELET COUNT, AUTOMATED 271 10^3/uL (150-450); RED CELL DISTRIBUTION WIDTH 13.9 % (11.5-14.5); WHITE BLOOD COUNT 9.6 10^3/uL (4.0-10.0)
[2018-01-16] MEDS ORDERED: DEXTROSE 50% 50 ML SYRINGE IV ×2 (09:45)
[2018-01-16] MEDS ORDERED: GLUCAGON FOR INJ 1 MG VIAL (J1610) SC ×2 (09:45)
[2018-01-16] MEDS ORDERED: GLUCOSE 4 GM CHEW TABLET PO ×2 (09:45)
[2018-01-16 10:09] LABS: ANION GAP 8 MEQ/L (8-16); BLOOD UREA NITROGEN 17 MG/DL (7-18); CALCIUM LEVEL 8.3 MG/DL (8.8-10.2); CARBON DIOXIDE LEVEL 28 MEQ/L (21-32); CHLORIDE LEVEL 106 MEQ/L (98-107); CREATININE FOR GFR 0.86 MG/DL (0.55-1.30); GLOMERULAR FILTRATION RATE > 60.0 (>45); GLUCOSE, FASTING 144 MG/DL (70-100); SODIUM LEVEL 142 MEQ/L (136-145)
[2018-01-16 11:28] LABS: BEDSIDE GLUCOSE 102 MG/DL (80-115)
[2018-01-16] MEDS: HumaLOG INSULIN (NovoLOG) PER UNIT SC ×2 (12:00)
[2018-01-16] MEDS ORDERED: HumaLOG INSULIN (NovoLOG) PER UNIT SC ×2 (21:00)
== END 2018-01-16 15:17 | disposition home or self-care (01) ==
LOC: M ED INP 01-15 04:27 → M ED 20:59 → M PCU 01-15 06:08 → M ED INP 21:02 → M PCU 01-15 06:08
DX: R07.9 Chest pain, unspecified (principal); I20.0 Unstable angina; I10 Essential (primary) hypertension; E78.49 Other hyperlipidemia; E11.9 Type 2 diabetes mellitus without complications; K21.9 Gastro-esophageal reflux disease without esophagitis; F41.9 Anxiety disorder, unspecified; Z79.82 Long term (current) use of aspirin; Z79.899 Other long term (current) drug therapy; Z88.0 Allergy status to penicillin; J44.9 Chronic obstructive pulmonary disease, unspecified; Z88.1 Allergy status to other antibiotic agents; F17.210 Nicotine dependence, cigarettes, uncomplicated
CPT/HCPCS: Q9967

== ENCOUNTER 2018-03-06 19:26 | Emergency (ER) | payer MEDICARE ==
[2018-03-06] MEDS: NS 1,000 ML IV ×2 (10:00→20:31)
[2018-03-06] MEDS ORDERED: ONDANSETRON 4MG/2ML VIAL (J2405) As Ordered (19:59)
[2018-03-06 20:30] LABS: BASO % 0.3 % (0.0-1.0); EOS % 0.1 % (0.0-3.0); HEMATOCRIT 34.7 % (36.0-47.0); HEMOGLOBIN 11.6 g/dl (12.0-15.5); IMMATURE GRANULOCYTE % 0.4 % (0-3.0); LYMPH # 0.7 10^3/uL (1.5-4.5); LYMPH % 7.3 % (24.0-44.0); MEAN CORPUSCULAR HEMOGLOBIN 30.4 pg (27.0-33.0); MEAN CORPUSCULAR HGB CONC 33.4 g/dl (32.0-36.5); MEAN CORPUSCULAR VOLUME 91.1 fl (80.0-96.0); MONO # 0.8 10^3/uL (0.0-0.8); MONO % 8.7 % (0.0-5.0); NEUTROPHILS # 7.6 10^3/uL (1.8-7.7); NEUTROPHILS % 83.2 % (36.0-66.0); PLATELET COUNT, AUTOMATED 226 10^3/uL (150-450); RED BLOOD COUNT 3.81 10^6/uL (4.00-5.40); RED CELL DISTRIBUTION WIDTH 13.5 % (11.5-14.5); WHITE BLOOD COUNT 9.2 10^3/uL (4.0-10.0)
[2018-03-06] MEDS: METOCLOPRAMIDE INJ 10MG/2ML VIAL (J2765) IV (20:31)
[2018-03-06] MEDS: PANTOPRAZOLE 40MG INJ (PROTONIX) (C9113) IV (20:31)
[2018-03-06 20:49] LABS: ALBUMIN 3.1 GM/DL (3.2-5.2); ALBUMIN/GLOBULIN RATIO 0.94 (1.00-1.93); ALKALINE PHOSPHATASE 69 U/L (45-117); ALT/SGPT 203 U/L (12-78); ANION GAP 9 MEQ/L (8-16); AST/SGOT 280 U/L (7-37); BILIRUBIN,DIRECT 0.1 MG/DL (0.0-0.2); BILIRUBIN,TOTAL 0.4 MG/DL (0.2-1.0); BLOOD UREA NITROGEN 19 MG/DL (7-18); CALCIUM LEVEL 7.1 MG/DL (8.8-10.2); CARBON DIOXIDE LEVEL 23 MEQ/L (21-32); CHLORIDE LEVEL 102 MEQ/L (98-107); CPK CREATINE PHOSPHOKINASE 111 U/L (26-192); CREATININE FOR GFR 0.88 MG/DL (0.55-1.30); GLOMERULAR FILTRATION RATE > 60.0 (>45); GLUCOSE, FASTING 94 MG/DL (70-100); LIPASE 54 U/L (73-393); MB/CK RELATIVE INDEX 1.08 (< OR =4); POTASSIUM SERUM 3.5 MEQ/L (3.5-5.1); SODIUM LEVEL 134 MEQ/L (136-145); TOTAL PROTEIN 6.4 GM/DL (6.4-8.2); TROPONIN I < 0.02 NG/ML (< 0.10)
[2018-03-06 21:41] LABS: KETONE, URINE AUTO RFX 1+ mg/dL (NEGATIVE); LEUKOCYTE ESTERASE UR AUTO RFX NEGATIVE (NEGATIVE); MUCUS, URINE RFX SMALL (NEGATIVE); NITRITE, URINE AUTO RFX NEGATIVE (NEGATIVE); RBC, URINE AUTO RFX 3 /HPF (0-3); SPECIFIC GRAVITY UR AUTO RFX 1.038 (1.002-1.035); SQUAM EPITHELIAL CELL UR AURFX 2 /HPF (0-6); WBC, URINE AUTO RFX 1 /HPF (0-3)
[2018-03-08 13:57] LABS: HEPATITIS C VIRUS ABY INDEX 0.1 INDEX (<0.8)
[2018-03-08 13:57] LABS: HEPATITIS A ANTIBODY IGM NEGATIVE (NEGATIVE); HEPATITIS B CORE ANTIBODY IGM NEGATIVE (NEGATIVE); HEPATITIS B SURFACE ANTIGEN NEGATIVE (NEGATIVE)
== END 2018-03-07 00:18 | disposition home or self-care (01) ==
LOC: M ED 03-07 00:18
DX: K29.70 Gastritis, unspecified, without bleeding (principal); K75.9 Inflammatory liver disease, unspecified; E83.51 Hypocalcemia; D35.00 Benign neoplasm of unspecified adrenal gland; I10 Essential (primary) hypertension; I25.10 Atherosclerotic heart disease of native coronary artery without angina pectoris; Z95.5 Presence of coronary angioplasty implant and graft; Z79.899 Other long term (current) drug therapy; Z88.0 Allergy status to penicillin; Z88.1 Allergy status to other antibiotic agents; F17.210 Nicotine dependence, cigarettes, uncomplicated
CPT/HCPCS: C9113

== ENCOUNTER → 2018-03-13 | Outpatient (REF) | payer MEDICARE ==
[2018-03-13 19:08] LABS: AMYLASE 47 U/L (25-115)
[2018-03-13 19:08] LABS: LIPASE 128 U/L (73-393)
== END ==
LOC: M LAB REF 16:52
DX: R10.11 Right upper quadrant pain (principal)
CPT/HCPCS: 82150

== ENCOUNTER → 2018-03-28 | Outpatient (CLI) | payer MEDICARE ==
[~2018-03-28] MED LIST changes: +ALBU83IN INH; +ANOR1AER INH; +BISO5TAB5; +GABA600T; +IBUP1TAB6 PO; +NICO14PA TOP; +VITA10002 PO; +ZOFR4TAB14 PO
--- NOTE | 2018-03-28 09:44 | REP ---
Right upper quadrant sonography: History: Right upper quadrant pain. Comparison study: No comparison sonography. Comparison CT study March 06, 2018. Findings: Scanning through the right upper quadrant of the abdomen demonstrates a thin-walled gallbladder without evidence of stone or polyp. The gallbladder is at the upper range of normal in size measuring 8.7 cm in greatest dimension. Common bile duct is normal measuring 0.5 cm in greatest diameter. No focal liver lesion is seen. Liver size is normal. No pancreatic abnormality is observed. No right renal abnormality is seen. There is no evidence of ascites. The right kidney measures 10.8 x 5.2 x 3.6 cm. Impression: The gallbladder is at the upper range of normal in size. Otherwise negative right upper quadrant sonography. Electronically Signed by Pepe Lundy MD 03/28/2018 09:35 A
== END ==
LOC: M RAD 08:58
PROVIDERS: ATTEND Surgery
DX: R10.11 Right upper quadrant pain (principal)

== ENCOUNTER → 2018-05-19 | Outpatient (REF) | payer MEDICARE ==
[~2018-05-19] MED LIST changes: -GABA600T; +GABA600T4
[2018-05-19 16:15] LABS: C REACTIVE PROTEIN QUANTITATIV < 0.30 MG/DL (0.00-0.30); FERRITIN 15 NG/ML (8-252); IRON (FE) 70 UG/DL (50-170)
[2018-05-19 16:19] LABS: PROLACTIN 6.3 NG/ML; TESTOSTERONE < 7 NG/DL (14-76); THYROGLOBULIN ANTIBODY < 15.0 U/ML (<60.0)
[2018-05-22 10:38] LABS: VITAMIN B12 LEVEL 1703 PG/ML (232-1245)
== END ==
LOC: M LAB REF 15:29
PROVIDERS: ATTEND Nurse Practitioner Family
DX: L65.9 Nonscarring hair loss, unspecified (principal); E07.9 Disorder of thyroid, unspecified; R53.83 Other fatigue

== ENCOUNTER → 2018-05-30 | Outpatient (CLI) | payer MEDICARE ==
--- NOTE | 2018-05-30 11:32 | REP ---
BILIARY SCAN WITH GALLBLADDER EJECTION FRACTION: 05/30/2018. Clinical history: Right upper quadrant pain. Comparison: Gallbladder ultrasound 03/28/2018. Technique: The patient received 6.6 mCi technetium 99m mebrofenin via an IV with sequential 5-minute anterior images for 1 hour. Thereafter, the patient drank 8 ounces of Ensure beginning 65 minutes post tracer administration. Thereafter a region of interest drawn around the gallbladder and sequential imaging for 1 hour obtained with gallbladder ejection fraction calculated by a semiautomated method. Findings: Activity is first seen in the gallbladder at the 15-minute imaging and in the duodenum at 10 minutes. Progressive filling of activity from the 15-minute sofi onward within the gallbladder and progressive washout and peristalsis of activity into small bowel. The liver is homogeneous and did wash out very well. No focal lesion. Gallbladder ejection fraction is calculated at 77% at 1 hour. Impression: 1. Normal biliary scan with prompt homogeneous tracer distribution throughout the liver, appearance of activity in the gallbladder at 15 minutes with progressive filling over the 1 hour. Good washout of activity and normal biliary to bowel transit. 2. Gallbladder ejection fraction 77%, normal is greater than 35% given this technique. Electronically Signed by Dexter Ceron MD 05/30/2018 05:49 P
== END ==
LOC: M RAD 06:57
PROVIDERS: ATTEND Surgery
DX: R10.9 Unspecified abdominal pain (principal)
CPT/HCPCS: 78227; A9537; J2805

== ENCOUNTER → 2018-06-16 | Outpatient (REF) | payer MEDICARE | LOC: M LAB REF 16:49 | PROVIDERS: ATTEND Nurse Practitioner Family | DX: L65.9 Nonscarring hair loss, unspecified (principal); R53.83 Other fatigue ==

== ENCOUNTER → 2018-07-03 | Outpatient (REF) | payer MEDICARE ==
[2018-07-03 15:06] LABS: CREATININE FOR GFR 1.08 MG/DL (0.55-1.30); GLOMERULAR FILTRATION RATE 53.5 (>45)
== END ==
LOC: M LABNEURO 09:47
PROVIDERS: ATTEND Psychiatry & Neurology Neurology
DX: I10 Essential (primary) hypertension (principal)

== ENCOUNTER → 2018-08-03 | Outpatient (CLI) | payer MEDICARE ==
[~2018-08-03] MED LIST changes: -/WARF25TA; +COUM1TAB18
--- NOTE | 2018-08-03 12:30 | REP ---
CAROTID ULTRASOUND: Real-time ultrasound evaluation and duplex Doppler interrogation of the extracranial carotid vasculature is performed. There is mild plaquing and narrowing in both carotid bulbs extending into the internal and external carotid arteries. Luminal narrowing is less than 50%. There is no evidence of hemodynamically significant stenosis of either internal carotid artery. Normal flow velocities are seen. The vertebral arteries demonstrate normal direction of flow. RIGHT LEFT Peak systolic velocity ICA 72.2 cm/s 66.6 cm/s End diastolic velocity ICA 22.6 cm/s 20.8 cm/s Peak systolic velocity CCA 129 cm/s 124 cm/s Peak systolic velocity ECA 83.2 cm/s 95.30 cm/s ICA/CCA ratio 0.56 0.54 IMPRESSION: Bilateral luminal narrowing of the internal carotid arteries less than 50%. No evidence of hemodynamically significant stenosis. Electronically Signed by Sabas Sanchez MD 08/03/2018 12:22 P
== END ==
LOC: M RAD 11:00
PROVIDERS: ATTEND Ophthalmology
DX: H53.9 Unspecified visual disturbance (principal)

== ENCOUNTER → 2018-08-16 | Outpatient (REF) | payer MEDICARE ==
[2018-08-16 16:57] LABS: INR 0.92; PROTHROMBIN TIME 12.4 SECONDS (12.1-14.4)
[2018-08-16 16:58] LABS: PARTIAL THROMBOPLASTIN TIME 27.8 SECONDS (25.4-37.6)
== END ==
LOC: M LABDRAW1 15:47
PROVIDERS: ATTEND Physician Assistant
DX: Z01.812 Encounter for preprocedural laboratory examination (principal); D69.1 Qualitative platelet defects

== ENCOUNTER → 2018-09-11 | Outpatient (CLI) | payer MEDICARE | LOC: M WUC 10:34 | PROVIDERS: ATTEND Internal Medicine Endocrinology, Diabetes & Metabolism | DX: M85.9 Disorder of bone density and structure, unspecified (principal) ==

== ENCOUNTER → 2018-09-28 | Outpatient (CLI) | payer MEDICARE ==
[2018-09-28 16:46] LABS: HEMATOCRIT 41.2 % (36.0-47.0); HEMOGLOBIN 13.5 g/dl (12.0-15.5); MEAN CORPUSCULAR HEMOGLOBIN 31.4 pg (27.0-33.0); MEAN CORPUSCULAR HGB CONC 32.8 g/dl (32.0-36.5); MEAN CORPUSCULAR VOLUME 95.8 fl (80.0-96.0); PLATELET COUNT, AUTOMATED 381 10^3/uL (150-450); WHITE BLOOD COUNT 10.5 10^3/uL (4.0-10.0)
== END ==
LOC: M WUC 14:42
PROVIDERS: ATTEND Internal Medicine Cardiovascular Disease
DX: I25.10 Atherosclerotic heart disease of native coronary artery without angina pectoris (principal)

== ENCOUNTER → 2019-01-24 | Outpatient (CLI) | payer MEDICARE ==
[~2019-01-24] MED LIST changes: -BISO5TAB5; +BISO5TAB9; +CYAN100049 PO; -OMEP40CA2 PO; +OMEP40CA97 PO; -VITA10002 PO
[2019-01-24 16:43] LABS: PLATELET COUNT, AUTOMATED 318 10^3/uL (150-450)
[2019-01-24 16:54] LABS: INR 1.02; PROTHROMBIN TIME 13.1 SECONDS (11.8-14.0)
[2019-01-24 16:55] LABS: PARTIAL THROMBOPLASTIN TIME 29.3 SECONDS (25.0-38.4)
== END ==
LOC: M WUC 15:21
PROVIDERS: ATTEND Physician Assistant
DX: M47.896 Other spondylosis, lumbar region (principal); Z01.812 Encounter for preprocedural laboratory examination

== ENCOUNTER → 2019-03-12 | Outpatient (CLI) | payer MEDICARE ==
--- NOTE | 2019-03-15 10:30 | DEXA ---
AP SPINE L1 - L4 1.074 -1.0 0.7 LT FEMUR TOTAL Left hip replacement. LT NECK Left hip replacement. RT FEMUR TOTAL 0.854 -1.2 0.3 RT NECK 0.825 -1.5 0.2 TOTAL BODY TOTAL OTHER COMMENTS: There is low bone density of the spine. There is low bone density of the right hip. The increased density of the spine does represent a significant change. The increased density of the right hip does represent significant change. The density of the spine has increased 18.4% since the initial exam on 08/11/2001. The spine density has increased 7.1% since the most recent exam on 02/14/2017. Left hip replacement. The density of the right hip has increased 4.4% since the initial exam on 02/28/2004. The density of the right hip has increased 5.2% since the most recent exam on 02/14/2017. FOLLOW-UP: Recommendation for the next bone density exam: 2 years. JULIAN
== END ==
LOC: M WHC 10:03
PROVIDERS: ATTEND Internal Medicine Endocrinology, Diabetes & Metabolism
DX: M85.9 Disorder of bone density and structure, unspecified (principal)

== ENCOUNTER → 2019-03-12 | Outpatient (CLI) | payer MEDICARE | LOC: M PLALAB 10:54 | PROVIDERS: ATTEND Internal Medicine Endocrinology, Diabetes & Metabolism | DX: M85.9 Disorder of bone density and structure, unspecified (principal) ==

== ENCOUNTER → 2019-03-30 | Outpatient (CLI) | payer MEDICARE ==
[2019-03-30 16:29] LABS: BLOOD UREA NITROGEN 20 MG/DL (7-18); CALCIUM LEVEL 9.6 MG/DL (8.8-10.2); CARBON DIOXIDE LEVEL 31 MEQ/L (21-32); CHLORIDE LEVEL 103 MEQ/L (98-107); CREATININE FOR GFR 0.93 MG/DL (0.55-1.30); GLOMERULAR FILTRATION RATE > 60.0 (>39); GLUCOSE, FASTING 72 MG/DL (70-100); POTASSIUM SERUM 4.3 MEQ/L (3.5-5.1); SODIUM LEVEL 141 MEQ/L (136-145)
== END ==
LOC: M WUC 14:10
PROVIDERS: ATTEND Ophthalmology Retina Specialist
DX: H53.2 Diplopia (principal)

== ENCOUNTER → 2019-04-05 | Outpatient (CLI) | payer MEDICARE ==
[~2019-04-05] MED LIST changes: +PROHANCE 279.3MG/ML 15ML VIAL (A9576) As Ordered ONE
--- NOTE | 2019-04-05 11:57 | REPVR ---
PROCEDURE INFORMATION: Exam: MR Head Without and With Contrast Exam date and time: 04/05/2019 9:59 AM Age: 68 years old Clinical indication: Visual disturbance; Additional info: Diplopia TECHNIQUE: Imaging protocol: MR of the head without and with intravenous contrast. Contrast material: PROHANCE; Contrast volume: 11 ml; Contrast route: IV; COMPARISON: No relevant prior studies available. FINDINGS: Limitations: Motion artifact does moderately limit the sensitivity of this examination. Brain: There is moderate atrophy and chronic white matter microangiopathic changes. There is no abnormal diffusion weighted signal intensity to suggest an acute ischemic event. Ventricles: There is compensatory ventricular dilation. Bones/joints: Unremarkable. Soft tissues: Unremarkable. Sinuses: Normal as visualized. No acute sinusitis. Mastoid air cells: Normal as visualized. No mastoid effusion. Orbits: Unremarkable. Other vasculature: Normal vascular flow voids are present. Other findings: There are no regions of abnormal enhancement. IMPRESSION: 1. There are no regions of abnormal enhancement. 2. No acute intracranial process is identified. Electronically signed by: Hayden Diallo On 04/05/2019 11:57:06 AM
--- NOTE | 2019-04-05 13:55 | REPVR ---
PROCEDURE INFORMATION: Exam: MR Orbit Without and With Contrast Exam date and time: 04/05/2019 10:00 AM Age: 68 years old Clinical indication: Visual changes or disturbances; Double vision (diplopia); Additional info: Diplopia TECHNIQUE: Imaging protocol: MR Orbit was performed without and with intravenous contrast. 3D rendering: MIP and/or 3D reconstructed images were created by the technologist. Contrast material: PROHANCE; Contrast volume: 11 ml; Contrast route: IV; COMPARISON: MRI-Spine,Cervical without con 08/02/2014 5:12 PM FINDINGS: Orbits: There is no evidence of orbital mass. Sinuses: Unremarkable. No air-fluid levels. Soft tissues: Unremarkable. Other findings: There are no regions of abnormal enhancement. IMPRESSION: 1. There are no regions of abnormal enhancement. 2. There is no evidence of orbital mass. Electronically signed by: Hayden Diallo On 04/05/2019 13:55:06 PM
== END ==
LOC: M RAD 09:47
PROVIDERS: ATTEND Ophthalmology Retina Specialist
DX: H53.2 Diplopia (principal)
CPT/HCPCS: 70543; 70553; A9576

== ENCOUNTER → 2019-05-12 | Outpatient (CLI) | payer MEDICARE ==
[~2019-05-12] MED LIST changes: +BISO5TAB14; -BISO5TAB9; -PROHANCE 279.3MG/ML 15ML VIAL (A9576) As Ordered ONE
--- NOTE | 2019-05-13 08:36 | REPVR ---
PROCEDURE INFORMATION: Exam: MR Lumbar Spine Without Contrast. Exam date and time: 05/12/2019 9:41 AM Age: 68 years old Clinical indication: Low back pain; Additional info: Spondylosis TECHNIQUE: Imaging protocol: Multiplanar magnetic resonance images of the lumbar spine without intravenous contrast. COMPARISON: No relevant prior studies available. FINDINGS: Vertebral body heights are intact. A grade 1 spondylolisthesis is present at L4-L5. Alignment is otherwise maintained. No pars defect is identified. The conus is unremarkable in appearance, with its tip at the L2 level. There are varying degrees of disc desiccation indicating intervertebral disc degeneration. The visualized abdominal structures appear unremarkable. L1-L2: No significant disc displacement. L2-L3: Small broad-based right paracentral protrusion without significant neural foraminal narrowing or spinal stenosis. There is bilateral facet arthrosis. L3-L4: Small bulge combining with facet arthrosis to lead to moderate right and mild left neural foraminal narrowing without significant spinal stenosis. L4-L5: Diffuse bulge with a superimposed superiorly directed right paracentral extrusion which extends approximately 10 mm above the level of the disc space combining with facet arthrosis and ligamentum flavum hypertrophy to lead to severe right and mild left neural foraminal narrowing with severe right and moderate left lateral recess narrowing and moderate to severe central canal stenosis. There is small fluid in the facet joints. L5-S1: Disc osteophyte complex combining with facet arthrosis and ligamentum flavum hypertrophy to lead to mild to moderate right and moderate to severe left neural foraminal narrowing with mild narrowing of the bilateral lateral recesses and borderline central canal stenosis. There is small fluid in the facet joints. If surgery is considered, recommend level confirmation. IMPRESSION: Multilevel disc desiccation indicating intervertebral disk degeneration with disc displacements as described. Electronically signed by: Stephen Evans On 05/13/2019 08:38:22 AM
== END ==
LOC: M RAD 09:33
PROVIDERS: ATTEND Physician Assistant
DX: M47.896 Other spondylosis, lumbar region (principal); M51.26 Other intervertebral disc displacement, lumbar region

== ENCOUNTER → 2019-06-02 | Outpatient (CLI) | payer MEDICARE ==
[~2019-06-02] MED LIST changes: -MONT10TA2 PO; +MONT10TA4 PO
--- NOTE | 2019-06-02 15:32 | REPVR ---
PROCEDURE INFORMATION: Exam: MR Cervical Spine Without Contrast Exam date and time: 06/02/2019 1:20 PM Age: 68 years old Clinical indication: Pain; Cervicalgia; Additional info: Spondylolisthesis, cervical regional TECHNIQUE: Imaging protocol: Multiplanar magnetic resonance images of the cervical spine without contrast. COMPARISON: MRI-Spine,Cervical without con 08/02/2014 5:12 PM (report not provided) FINDINGS: There is mild motion limitation. Vertebral body heights are intact. Mild reversal of the normal cervical lordotic curve could be secondary to muscle spasm or positioning. There is again a grade 1 spondylolisthesis at C7-T1. Alignment is otherwise maintained. The cervical medullary junction appears unremarkable. The spinal cord appears normal in signal. There are varying degrees of disc desiccation indicating intervertebral disc degeneration. C2-C3: Similar minimal bulge without significant neural foraminal narrowing or spinal stenosis. C3-C4: Mildly larger left foraminal component of a small disc osteophyte complex combining with uncinate hypertrophy to lead to mild left neural foraminal narrowing without significant spinal stenosis. C4-C5: Similar disc osteophyte complex combining with uncinate hypertrophy to lead to mild right and moderate left neural foraminal narrowing without significant spinal stenosis. C5-C6: Similar disc osteophyte complex combining with uncinate and ligamentum flavum hypertrophy to lead to moderate right and mild to moderate left neural foraminal narrowing with borderline spinal stenosis. C6-C7: Similar disc osteophyte complex combining with uncinate hypertrophy to lead to mild right and mild to moderate left neural foraminal narrowing without significant spinal stenosis. C7-T1: Similar small osteophytic ridge leading to very mild right and mild left neural foraminal narrowing without significant spinal stenosis. If surgery is considered, recommend level confirmation. IMPRESSION: Multilevel disc desiccation indicating intervertebral disk degeneration with disc displacements as described. Electronically signed by: Stephen Evans On 06/02/2019 15:32:32 PM
== END ==
LOC: M RAD 12:08
PROVIDERS: ATTEND Orthopaedic Surgery
DX: M43.12 Spondylolisthesis, cervical region (principal); Z96.642 Presence of left artificial hip joint; M50.21 Other cervical disc displacement, high cervical region

== ENCOUNTER 2019-09-06 00:39 | Inpatient (IN) | payer MEDICARE ==
[~2019-09-06] VITALS: Ht 154.9 cm; Wt 65.7 kg
[~2019-09-06 00:39] MED LIST changes: -BISO5TAB14; +BISO5TAB14 PO
[2019-09-06] MEDS ORDERED: methylPREDNISolone INJ 125 MG/2 ML VIAL (J2930) IV ONE (01:15)
[2019-09-06 01:29] LABS: BASO # 0.1 10^3/uL (0.0-0.2); BASO % 0.6 % (0.0-1.0); EOS # 0.4 10^3/uL (0.0-0.5); EOS % 3.4 % (0.0-3.0); HEMATOCRIT 38.4 % (36.0-47.0); HEMOGLOBIN 12.6 g/dl (12.0-15.5); LYMPH % 31.9 % (24.0-44.0); MEAN CORPUSCULAR HEMOGLOBIN 29.4 pg (27.0-33.0); MEAN CORPUSCULAR HGB CONC 32.8 g/dl (32.0-36.5); MEAN CORPUSCULAR VOLUME 89.5 fl (80.0-96.0); MONO # 1.1 10^3/uL (0.0-0.8); MONO % 8.4 % (0.0-5.0); NEUTROPHILS # 6.9 10^3/uL (1.5-8.5); NEUTROPHILS % 55.2 % (36.0-66.0); PLATELET COUNT, AUTOMATED 307 10^3/uL (150-450); RED BLOOD COUNT 4.29 10^6/uL (4.00-5.40); WHITE BLOOD COUNT 12.6 10^3/uL (4.0-10.0)
[2019-09-06] MEDS: COMBIVENT RESPIMAT 100-20MCG INHALER 4GM INH PRN ×3 (01:29→02:19)
[2019-09-06] MEDS ORDERED: NITR0.4S14 SL (01:46)
[2019-09-06] MEDS ORDERED: LYRI75CA PO (01:46)
[2019-09-06] MEDS ORDERED: ALPR0.25 PO (01:46)
[2019-09-06] MEDS ORDERED: EZET10TA21 PO (01:46)
[2019-09-06 01:47] LABS: THYROID STIMULATING HORMONE 2.08 uIU/ML (0.358-3.740)
[2019-09-06] MEDS ORDERED: FUROSEMIDE 40MG/4ML VIAL (J1940) IV ONE (02:00)
[2019-09-06] MEDS ORDERED: MAALOX 30 ML SUSP *UDC PO PRN (04:00)
[2019-09-06] MEDS ORDERED: MOM 30ML SUSPENSION UDC PO PRN (04:00)
[2019-09-06] MEDS ORDERED: ALBUTEROL SULFATE 2.5 MG/0.5 ML INH NEB SOLN NEB PRN (04:00)
[2019-09-06] MEDS ORDERED: ATOR80TA59 PO (04:05)
[2019-09-06] MEDS ORDERED: METF-838 PO (04:05)
[2019-09-06] MEDS ORDERED: ALL10TAB29 PO (04:05)
--- NOTE | 2019-09-06 04:17 | HPEPDOC ---
General Date of Admission Date of Service: September 06, 2019 Chief Complaint The patient is a 68-year-old female admitted with a reason for visit of chest pain. Source: Patient Exam Limitations: No limitations Timing/Duration: Other Severity: Severe Associated Symptoms: Chest Pain, Shortness of breath History of Present Illness This is a 68 years old white female with past medical history of COPD, diabetes mellitus, hyperlipidemia, GERD, chronic interstitial pulmonary fibrosis, CAD status post 2 cardiac stents in 2018, presented with chief complaints of increasing shortness of breath, which is present most of the time on on exertion, but as per patient, has been progressively getting worse. She was found to be hypoxic with 85% pulse ox on room air in triage and also complaining of chest pain and indigestion since 1 day. Chest pain is epigastric in location, nonradiating, not associated with shortness of breath, not relieved with any pain medication or treatment not exacerbated by exertion. Chest pain is present since 1 day along with her shortness of breath.. We were called in to admit patient with the exacerbation of COPD and possible CHF. She did receive 1 dose of Lasix 40 mg IV in the emergency room Home Medications Scheduled Aspirin (Aspirin EC) 81 Mg Tabec, 81 MG PO DAILY, (Reported) Budesonide/Formoterol (Symbicort 160-4.5 Mcg Inhaler) 60 Puff/Inhaler Aers, 2 PUFF INH BID, (Reported) Calcium Carbonate/Vitamin D3 (Calcium 500-Vit D3 200 Caplet) 1 Tab Tab, 1 TAB PO QHS, (Reported) Cetirizine Hcl (Zyrtec) 10 Mg Tab, 10 MG PO DAILY, (Reported) Ezetimibe (Ezetimibe) 10 Mg Tablet, 10 MG PO DAILY, (Reported) Metformin HCl (Glucophage) 500 Mg Tab, 500 MG PO QHS, (Reported) Montelukast Sodium (Montelukast Sodium) 10 Mg Tab, 10 MG PO DAILY, (Reported) Nitroglycerin (Nitroglycerin) 0.4 Mg Tab.subl, 0.4 MG SL ASDIRECTED for chest pain, (Reported) 1st sign of attack; may repeat every 5 mins; if pain persists after 3 in 15 min, medical attention is recommended Omeprazole (Omeprazole) 40 Mg Cap, 40 MG PO QHS, (Reported) Paroxetine HCl (Paroxetine HCl) 20 Mg Tab, 20 MG PO DAILY, (Reported) Pravastatin Sodium (Pravastatin Sodium) 80 Mg Tab, 80 MG PO QHS, (Reported) Pregabalin (Lyrica) 75 Mg Capsule, 75 MG PO BID, (Reported) Tiotropium [place] (Spiriva Respimat) 2.5 Mcg/Act Spr, 2 PUFFS INH DAILY, (Reported) Scheduled PRN Albuterol Sulf (Albuterol Sulfate) 2.5 Mg/3 Ml Nebu, 2.5 MG INH Q4H PRN for WHEEZING, (Reported) Albuterol Sulfate (Proair Hfa) 108 Mcg/Act Aer, 2 PUFF INH QID PRN for SHORTNESS OF BREATH, (Reported) Miscellaneous Medications Alprazolam (Alprazolam) 0.25 Mg Tablet, 0.25 MG PO, (Reported) Bisoprolol Fumarate (Bisoprolol Fumarate) 5 Mg Tab, (Reported) Allergies Coded Allergies: Penicillins (Verified Allergy, Severe, 09/06/19) vancomycin (Verified Allergy, Severe, 09/06/19) Past Medical History Medical History COPD, diabetes mellitus, hyperlipidemia, GERD, chronic interstitial pulmonary fibrosis, CAD with 2 cardiac stents Surgical History Left hip replacement, bilateral rotator cuff repair 4 times on the nerve release on the right elbow Coppertone or release on right side. 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, hysterectomy, appendectomy, tonsillectomy Family History Family history reviewed with the patient, she has his family history of hypertension and cancer on both sides of her parents Social History * Smoker: current smoker Alcohol: Denies Drugs: denies A-FIB/CHADSVASC A-FIB History Current/History of A-Fib/PAF?: No Review of Systems Constitutional: Denies: Chills, Fever, Malaise, Night Sweats, Weakness, Fatigue, Weight Loss, Lethargy, Other Eyes: Denies: Pain, Vision change, Conjunctivae inflammation, Eyelid in flammation, Redness, Other ENT: Denies: Head Aches, Ear Pain, Dysphagia, Sinus Congestion, Post Nasal Drip, Sore Throat, Epistaxis, Other Symptoms Skin: Denies: Rash, Lesions, Jaundice, Bruising, Itching, Dry, Breakdown, Nail Changes, Other Pulmonary: Reports: Dyspnea Cardiovascular: Reports: Chest Pain Gastrointestinal: Denies: Nausea, Vomiting, Abdominal Pain, Diarrhea, Constipation, Melena, Hematochezia, Other Symptoms Genitourinary: Denies: Dysuria, Frequency, Incontinence, Hematuria, Retention, Other Symptoms Hematologic: Denies: Bruising, Bleeding Excessively, Petecchia, Purpura, Enlarged Lymph Nodes, Other Hematologic Endocrine: Denies: Polydipsia, Polyphagia, Polyuria, Heat Intolerance, Cold Intolerance, Other Endocrine Sx Musculoskeletal: Denies: Neck Pain, Back Pain, Shoulder Pain, Arm Pain, Hand Pain, Leg Pain, Foot Pain, Joint Pain, Muscle Pain, Spasms, Other Symptoms Neurological: Denies: Weakness, Numbness, Incoordination, Change in speech, Confusion, Seizures, Other Symptoms Physical Examination General Exam: Positive: Alert, Cooperative Eye Exam: Positive: PERRLA, Conjunctiva & lids normal ENT Exam: Positive: Atraumatic, Mucous membr. moist/pink Neck Exam: Positive: Supple Chest Exam: Positive: Other (bilateral expiratory wheezing. No rales or rhonchi audible) Heart Exam: Positive: Rate Normal, Normal S1, Normal S2 Telemetry: Positive: Tachycardia Abdomen Exam: Positive: Normal bowel sounds, Soft Extremity Exam: Positive: Normal pulses Skin Exam: Positive: Nl turgor and temperature Neuro Exam: Positive: Strength at 5/5 X4 ext, Sensation Intact, Cranial Nerves 3-12 NL Psych Exam: Positive: Anxiety, Oriented x 3 Vital Signs Vital Signs Date Time Temp Pulse Resp B/P (MAP) Pulse Ox O2 Delivery O2 Flow Rate FiO2 09/06/19 02:00 20 127/58 (81) 95 Nasal Cannula 2.0 09/06/19 01:54 70 09/06/19 01:27 94 09/06/19 00:39 98.2 Laboratory Data Labs 24H Laboratory Tests 2 09/06/19 01:00: Immature Granulocyte % (Auto) 0.5, Neutrophils (%) (Auto) 55.2, Lymphocytes (%) (Auto) 31.9, Monocytes (%) (Auto) 8.4H, Eosinophils (%) (Auto) 3.4H, Basophils (%) (Auto) 0.6, Neutrophils # (Auto) 6.9, Lymphocytes # (Auto) 4.0, Monocytes # (Auto) 1.1H, Eosinophils # (Auto) 0.4, Basophils # (Auto) 0.1, Nucleated Red Blood Cells % (auto) 0.0, EH-Zee-J-Type Natriuretic Peptide 1213H, Thyroid Stimulating Hormone (TSH) 2.080 09/06/19 01:08: POC Troponin I (Misc) 0.01 09/06/19 01:11: POC Glucose (Misc Panel) 108H, POC Sodium (Misc Panel) 141, POC Potassium (Misc Panel) 4.2, POC Chloride (Misc Panel) 103, POC Total CO2 (Misc Panel) 27.0, POC Blood Urea Nitrogen (Misc Panel 25, POC Ionized Calcium (Misc Panel) 4.9, POC Creatinine (Misc Panel) 1.0, POC Hematocrit (Misc Panel) 42.0 09/06/19 01:13: POC Total CO2 (Misc Panel) 32.0H, POC pH (Misc Panel) 7.365, POC Base Excess (Misc Panel) 5.0H, POC Saturated Percent O2 (Misc) 97, POC pO2 (Misc Panel) 96.0, POC pCO2 (Misc Panel) 52.9H, POC HCO3 (Misc Panel) 30.2H 09/06/19 01:16: POC Lactate (Misc Panel) 1.25 CBC/BMP Laboratory Tests 09/06/19 01:00 Microbiology Microbiology 09/06/19 Coronavirus COVID-19 PCR (MICKEY), Received Pending 09/06/19 Respiratory Virus Panel (PCR) (MICKEY) - Final, Complete 09/06/19 Blood Culture, Received Pending 09/06/19 Blood Culture, Received Pending Problems (1) COPD exacerbation Status: Acute Problem Text: Admit patient to PCU with telemetry Patient was given a loading dose of Solu-Medrol in ED and I will continue Solu-Medrol 60 mg IV every 8 hours DuoNeb every 6 hours and Proventil every hour when necessary Oxygen support Smoking cessation counseling again done Patient follows up with Dr. Linares for pulmonary conditions Will continue all her home meds Diet is a consistent carbohydrate diet Activity bedrest with bathroom privileges. till patient is symptomatically improved DVT prophylaxis with heparin (2) Interstitial pulmonary fibrosis Status: Chronic Problem Text: History of chronic interstitial pulmonary fibrosis Continue IV steroids and nebulizer treatment as per orders Chest x-ray was reviewed by me. It shows chronic interstitial changes but did not appreciate any vascular congestion such as CHF or pneumonia (3) CHF (congestive heart failure) Status: Acute Problem Text: Patient was diagnosed with CHF, possibly acute on chronic diastolic heart failure in the emergency room and received a dose of Lasix 40 mg IV push 1 I reviewed patient's EKG shows normal sinus rhythm, no acute ST-T changes Chest x-ray also shows chronic interstitial changes but did not appreciated any pulmonary congestion, BNP is slightly elevated 1213 Patient had echocardiogram done in 2018 which had showed normal cardiac structures with ejection fraction of 65-70% I doubt patient has any acute exacerbation OF congestive heart failure at this time I will hold the IV Lasix, but will start her on Lasix 40 mg by mouth twice a day till CHF is completely ruled out Repeat echocardiogram this morning. He has been ordered and depending on the echocardiogram report, patient can be further evaluated and treated Patient follows up with an outpatient . She also was seen at [facility] in 2018 had a cardiac cath done with placement of 2 coronary stents. Serial troponin have been ordered and also will order repeat BNP in a.m. Monitor intake and output (4) Diabetes mellitus Status: Chronic Problem Text: Fingerstick blood sugar every before meals and at bedtime with coverage Continue home meds (5) CAD (coronary artery disease) Status: Chronic Problem Text: Continue home meds Serial troponins ordered (6) Hyperlipemia Status: Chronic Problem Text: Continue home meds Plan / VTE VTE Prophylaxis Ordered?: Yes ROBLES CONWAY MD September 06, 2019 04:17
[2019-09-06] MEDS ORDERED: DEXTROSE 50% 50 ML SYRINGE IV PRN (04:30)
[2019-09-06] MEDS ORDERED: GLUCAGON INJ 1MG VIAL SC PRN (04:30)
[2019-09-06] MEDS ORDERED: GLUCOSE 4GM CHEW TABLET PO PRN (04:30)
[2019-09-06] MEDS ORDERED: ALPRAZolam 0.25 MG TAB PO PRN (04:45)
[2019-09-06] MEDS: SYMBICORT 160/4.5MCG INHALER 6GM INH SCH ×2 (07:39→20:20)
[2019-09-06] MEDS: IPRATROPIUM 0.5MG/ALBUTEROL 2.5MG INH SOL UD 3ML (DUONEB)(J7620) NEB SCH ×3 (07:39→20:00)
--- NOTE | 2019-09-06 07:53 | ECGEPIP ---
[facility] - ED Test Date: 2019-09-06 Pat Name: TRICIA SHOOK Department: Room: [place] [address] Gender: Female [employer]er: karin : 1950 Requested By: Madi May Order Number: [id number] Reading MD: Madi Chew Measurements Intervals [place] Rate: 71 P: 81 MA: 181 QRS: 62 QRSD: 84 T: 55 QT: 362 QTc: 394 Interpretive Statements SINUS RHYTHM POSSIBLE INFERIOR MYOCARDIAL INFARCTION, PROBABLY OLD SIMILAR TO 03/06/18 Electronically Signed on 09-06-2019 7:53:34 EDT by Madi Chew
--- NOTE | 2019-09-06 08:10 | REP ---
PORTABLE CHEST X-RAY: Single view. HISTORY: Dyspnea and cough. COMPARISON STUDY: March 06, 2018. FINDINGS: Monitoring electrodes overlie the chest. The lungs are hyperinflated consistent with COPD. Emphysematous changes are noted in the upper lobes as before. Interstitial markings are prominent in the lower lobes also unchanged. No focal infiltrate is appreciated. Pleural angles are sharp. Heart size is normal and unchanged. IMPRESSION: Evidence of COPD, hyperinflation, bibasilar fibrosis. No acute infiltrate seen. Electronically Signed by Pepe Lundy MD 09/06/2019 09:59 A
[2019-09-06] MEDS: HumaLOG INSULIN (NovoLOG) PER UNIT SC SCH ×4 (10:21→21:00)
[2019-09-06] MEDS: methylPREDNISolone INJ 125 MG/2 ML VIAL (J2930) IV SCH ×2 (10:22→17:54)
[2019-09-06] MEDS: PREGABALIN 75 MG CAP(LYRICA) PO SCH ×2 (10:22→21:22)
[2019-09-06] MEDS: DOCUSATE SODIUM 100 MG CAP PO SCH ×2 (10:22→21:22)
[2019-09-06] MEDS: MONTELUKAST 10 MG TAB PO SCH (10:23)
[2019-09-06] MEDS: HEPARIN SOD (PORCINE) 5000UNITS/ML VIAL (J1644 PER 1000UNITS) SC SCH ×2 (10:23→21:22)
[2019-09-06] MEDS: PARoxetine 20 MG TAB PO SCH (10:24)
[2019-09-06] MEDS: metFORMIN XR 500MG TAB *GLUCOPHAGE XR PO SCH (10:24)
[2019-09-06] MEDS: FUROSEMIDE 40 MG TAB PO SCH ×2 (10:24→17:54)
[2019-09-06] MEDS: ASPIRIN 81 MG ENTERIC TAB PO SCH (10:24)
[2019-09-06] MEDS: CETIRIZINE (ZyrTEC) 10 MG TAB PO SCH (10:24)
[2019-09-06] MEDS: BISOPROLOL FUM 2.5 MG PER 1/2TAB PO SCH (10:25)
[2019-09-06] MEDS ORDERED: FUROSEMIDE 40MG/4ML VIAL (J1940) IV SCH (12:00)
[2019-09-06 14:05] VITALS: BP 111/59
[2019-09-06 16:00] VITALS: BP 117/56
--- NOTE | 2019-09-06 18:03 | ECHO ---
DATE OF PROCEDURE: 09/06/2019 REFERRING PHYSICIAN: Dr. Irving Mac INDICATION: Chest pain, unspecified. HEIGHT: 155 cm WEIGHT: 61 kg 2D MEASUREMENTS: Aortic root: 2.6 cm Left atrium: 2.5 cm Ventricular septum: 0.94 cm Posterior wall: 1.03 cm Left ventricle diastole: 3.4 cm Aortic annulus: 1.6 cm Inferior vena cava: 1.1 cm with more than 50% respiratory variation. DOPPLER MEASUREMENTS: Aortic valve velocity: 188 cm/s LVOT velocity: 103 cm/s LVOT VTI: 17.9 cm No aortic stenosis. No aortic regurgitation. No mitral stenosis. Mitral E velocity: 61.7 cm/s Mitral A velocity: 78.4 cm/s Mitral deceleration time: 254 milliseconds No tricuspid regurgitation. No pulmonic regurgitation. Pulmonary acceleration time: 100 ms MITRAL ANNULAR TISSUE DOPPLER: E prime septal: 9.8 cm/s E prime lateral: 12.3 cm/s DESCRIPTION: Rhythm was sinus. Image quality was fair. Some premature ventricular contractions (PVCs) were observed. This was a 2D, M-mode, color flow Doppler and pulse wave Doppler examination and included mitral annular tissue Doppler. CONCLUSIONS: 1. Normal left ventricle internal dimensions and wall thickness. Normal regional left ventricular (LV) wall motion and wall thickening. Normal LV systolic function. Left ventricular ejection fraction (LVEF) 65% by visual estimate. Normal LV diastolic function for age. 2. No pericardial effusion. 3. Mild aortic valve sclerosis of a 3-cusp aortic valve. No aortic regurgitation. 4. Mild mitral annular calcification. No mitral regurgitation. 5. Suggestive of mild elevation of pulmonary artery systolic pressure. 6. Lipomatous hypertrophy of the intraatrial septum (1.7 cm).
--- NOTE | 2019-09-06 18:49 | IPNPDOC ---
Text Note Date of Service The patient was seen on 09/06/19. NOTE Subjective: Patient continues to have shortness of breath with increased whitish sputum production and cough. Patient denied fever, chills, nausea, vomiting, diarrhea or dysuria Objective: VITAL SIGNS: Please see below. GENERAL: awake, alert, NAD HEENT: NCAT, anicteric sclera, [place] NECK: supple, no JVD CARDIOVASCULAR EXAMINATION: NS1S2, regular rate/rhythm RESPIRATORY EXAMINATION: Bilateral prolonged expiratory wheezes ABDOMINAL EXAMINATION: positive bowel sounds x 4, NT EXTREMITIES: no cyanosis, clubbing, edema SKIN: warm, no rashes. NEUROLOGICAL EXAMINATION: AAO x 3, no motor/sensory deficits PSYCHIATRIC EXAMINATION: calm, normal affect Patient is 68 years old female with past medical history of COPD, diabetes mellitus, hyperlipidemia, GERD, chronic interstitial pulmonary fibrosis, CAD status post 2 cardiac stents in 2018, presented with chief complaints of i ncreasing shortness of breath. Patient was found to have COPD exacerbation. COPD exacerbation Patient is active smoker, noncompliant Continue oxygen Continue inhalers, steroids Due to increased sputum production and cough. I will start levofloxacin Interstitial pulmonary fibrosis Follow-up with pediatric oncology nurse in the outpatient settings CHF r/o Patient has never been diagnosed with CHF On 09/06/27 showed Normal left ventricle internal dimensions and wall thickness. Normal regional left ventricular (LV) wall motion and wall thickening. Normal LV systolic function. Left ventricular ejection fraction (LVEF) 65% by visual estimate. Normal LV diastolic function for age. I stopped Lasix Diabetes Glucose levels under control Insulin sliding scale Diabetes diet Coronary artery diseases Patient doesn't have any chest pain, EKG negative for acute ischemic changes Continue home cardioprotective medications VS,Fishbone, I+O VS, Fishbone, I+O Laboratory Tests 09/06/19 01:00 Vital Signs Date Time Temp Pulse Resp B/P (MAP) Pulse Ox O2 Delivery O2 Flow Rate FiO2 09/06/19 16:00 2.0 09/06/19 16:00 99.2 84 20 117/56 (76) 91 Nasal Cannula 09/06/19 01:27 94 CASSIE LIRA DO September 06, 2019 18:49
[2019-09-06 19:15] LABS: ALBUMIN 3.8 GM/DL (3.2-5.2); ALT/SGPT 29 U/L (12-78); BILIRUBIN,TOTAL 0.3 MG/DL (0.2-1.0); BLOOD UREA NITROGEN 30 MG/DL (7-18); CALCIUM LEVEL 9.6 MG/DL (8.8-10.2); CARBON DIOXIDE LEVEL 27 MEQ/L (21-32); CHLORIDE LEVEL 102 MEQ/L (98-107); CREATININE FOR GFR 1.34 MG/DL (0.55-1.30); GLOMERULAR FILTRATION RATE 41.6 (>39); GLUCOSE, FASTING 145 MG/DL (70-100); POTASSIUM SERUM 4.3 MEQ/L (3.5-5.1); SODIUM LEVEL 141 MEQ/L (136-145); TROPONIN I < 0.02 NG/ML (< 0.10)
[2019-09-06 20:00] VITALS: BP 139/60
[2019-09-06] MEDS: ATORVASTATIN 20 MG TAB PO SCH (21:21)
[2019-09-06] MEDS: OMEPRAZOLE 20 MG CAP PO SCH (21:22)
[2019-09-06] MEDS: EZETIMIBE 10 MG TAB (ZETIA) PO SCH (21:42)
[2019-09-06] MEDS: LevoFLOXacin 500 MG TABLET PO SCH (21:42)
[2019-09-06] MEDS ORDERED: ALBUTEROL 90 MCG/ACT 8GM HFA INHALER INH PRN (22:00)
[2019-09-06 22:29] VITALS: BP 125/73
[2019-09-06 22:30] VITALS: BP 125/73; PULSE 89
[2019-09-06] MEDS: NITROGLYCERIN 0.4 MG SUBL TABLET SL PRN (22:31)
[2019-09-06 22:50] VITALS: BP 108/52
[2019-09-06] MEDS ORDERED: ASPIRIN 81 MG CHEW TABLET PO ONE (23:00)
[2019-09-06 23:49] LABS: CK-MB VALUE MASS 4.2 NG/ML (<3.6); CPK CREATINE PHOSPHOKINASE 266 U/L (26-192); MB/CK RELATIVE INDEX 1.58 (< OR =4); TROPONIN I < 0.02 NG/ML (< 0.10)
[2019-09-07] VITALS: BP 117/56
[2019-09-07] MEDS ORDERED: CALCIUM CARBONATE 500 MG CHEW U/D PO PRN (00:15)
[2019-09-07] MEDS: ACETAMINOPHEN TAB 650MG DOSE (2X325MG) PO PRN (00:36)
[2019-09-07] MEDS: methylPREDNISolone INJ 125 MG/2 ML VIAL (J2930) IV SCH ×3 (00:38→16:33)
[2019-09-07] MEDS: COMBIVENT RESPIMAT 100-20MCG INHALER 4GM INH SCH ×4 (01:22→20:00)
[2019-09-07 08:00] VITALS: BP 109/58
[2019-09-07] MEDS: SYMBICORT 160/4.5MCG INHALER 6GM INH SCH ×2 (08:08→20:11)
[2019-09-07 09:18] LABS: HEMATOCRIT 39.5 % (36.0-47.0); HEMOGLOBIN 12.8 g/dl (12.0-15.5); MEAN CORPUSCULAR HEMOGLOBIN 29.2 pg (27.0-33.0); MEAN CORPUSCULAR HGB CONC 32.4 g/dl (32.0-36.5); MEAN CORPUSCULAR VOLUME 90.2 fl (80.0-96.0); PLATELET COUNT, AUTOMATED 349 10^3/uL (150-450); RED BLOOD COUNT 4.38 10^6/uL (4.00-5.40); WHITE BLOOD COUNT 9.8 10^3/uL (4.0-10.0)
[2019-09-07 09:54] LABS: ALBUMIN 3.5 GM/DL (3.2-5.2); BILIRUBIN,TOTAL 0.2 MG/DL (0.2-1.0); CREATININE FOR GFR 1.13 MG/DL (0.55-1.30); GLOMERULAR FILTRATION RATE 50.7 (>39); POTASSIUM SERUM 4.5 MEQ/L (3.5-5.1); TOTAL PROTEIN 7.2 GM/DL (6.4-8.2)
[2019-09-07] MEDS: MONTELUKAST 10 MG TAB PO SCH (10:27)
[2019-09-07] MEDS: DOCUSATE SODIUM 100 MG CAP PO SCH ×2 (10:27→21:06)
[2019-09-07] MEDS: CETIRIZINE (ZyrTEC) 10 MG TAB PO SCH (10:28)
[2019-09-07] MEDS: PARoxetine 20 MG TAB PO SCH (10:28)
[2019-09-07] MEDS: ASPIRIN 81 MG ENTERIC TAB PO SCH (10:28)
[2019-09-07] MEDS: PREGABALIN 75 MG CAP(LYRICA) PO SCH ×2 (10:28→21:03)
[2019-09-07] MEDS: metFORMIN XR 500MG TAB *GLUCOPHAGE XR PO SCH (10:28)
[2019-09-07] MEDS: HEPARIN SOD (PORCINE) 5000UNITS/ML VIAL (J1644 PER 1000UNITS) SC SCH ×2 (10:29→21:03)
[2019-09-07] MEDS: HumaLOG INSULIN (NovoLOG) PER UNIT SC SCH ×4 (10:29→21:00)
[2019-09-07] MEDS: BISOPROLOL FUM 2.5 MG PER 1/2TAB PO SCH (10:32)
[2019-09-07 12:00] VITALS: BP 125/58
--- NOTE | 2019-09-07 15:25 | IPNPDOC ---
Text Note Date of Service The patient was seen on 09/07/19. NOTE Subjective: Patient stated that she feels better today, breathing improved. P atient denied fever, chills, nausea, vomiting, diarrhea or dysuria Objective: VITAL SIGNS: Please see below. GENERAL: awake, alert, NAD HEENT: NCAT, anicteric sclera, [place] NECK: supple, no JVD CARDIOVASCULAR EXAMINATION: NS1S2, regular rate/rhythm RESPIRATORY EXAMINATION: Bilateral prolonged expiratory wheezes ABDOMINAL EXAMINATION: positive bowel sounds x 4, NT EXTREMITIES: no cyanosis, clubbing, edema SKIN: warm, no rashes. NEUROLOGICAL EXAMINATION: AAO x 3, no motor/sensory deficits PSYCHIATRIC EXAMINATION: calm, normal affect Patient is 68 years old female with past medical history of COPD, diabetes mellitus, hyperlipidemia, GERD, chronic interstitial pulmonary fibrosis, CAD status post 2 cardiac stents in 2018, presented with chief complaints of increasing shortness of breath. Patient was found to have COPD exacerbation. COPD exacerbation Patient is active smoker, noncompliant Continue oxygen Continue inhalers, steroids Due to increased sputum production and cough, I started levofloxacin Interstitial pulmonary fibrosis Follow-up with tectonophysicist in the outpatient settings CHF r/o Patient has never been diagnosed with CHF On 09/06/27 showed Normal left ventricle internal dimensions and wall thickness. Normal regional left ventricular (LV) wall motion and wall thickening. Normal LV systolic function. Left ventricular ejection fraction (LVEF) 65% by visual estimate. Normal LV diastolic function for age. I stopped Lasix Diabetes Glucose levels under control Insulin sliding scale Patient requested regular diet instead of diabetes diet. Coronary artery diseases Patient doesn't have any chest pain, EKG negative for acute ischemic changes Continue home cardioprotective medications VS,Fishbone, I+O VS, Fishbone, I+O Laboratory Tests 09/06/19 18:07 09/07/19 08:11 Vital Signs Date Time Temp Pulse Resp B/P (MAP) Pulse Ox O2 Delivery O2 Flow Rate FiO2 09/07/19 12:00 98.1 71 19 125/58 (80) 94 Nasal Cannula 2.0 09/06/19 22:30 I&O- Last 24 Hours up to 6 AM 09/07/19 06:00 Intake Total 360 ml Output Total 0 ml Balance 360 ml CASSIE LIRA DO September 07, 2019 15:25
[2019-09-07 16:00] VITALS: BP 115/74
[2019-09-07] MEDS: LevoFLOXacin 500 MG TABLET PO SCH ×2 (16:32→17:36)
[2019-09-07 16:48] VITALS: BP 131/60
[2019-09-07] MEDS ORDERED: SLF 3 ML SYR IV PRN (17:15)
[2019-09-07 20:00] VITALS: BP 119/57
[2019-09-07] MEDS: OMEPRAZOLE 20 MG CAP PO SCH (21:02)
[2019-09-07] MEDS: ATORVASTATIN 20 MG TAB PO SCH (21:02)
[2019-09-07] MEDS: EZETIMIBE 10 MG TAB (ZETIA) PO SCH (21:02)
[2019-09-07] MEDS: SLF 3 ML SYR IV SCH (21:05)
--- NOTE | 2019-09-07 22:14 | ECGEPIP ---
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 Order Number: [id number] Reading MD: Jean Cardona Measurements Intervals [place] Rate: 94 P: 68 UT: 152 QRS: 39 QRSD: 79 T: 46 QT: 323 QTc: 405 Interpretive Statements SINUS RHYTHM Nonspecific ST-T abnormalities. Electronically Signed on 09-07-2019 22:14:13 EDT by Jean Cardona
[2019-09-08] VITALS: BP 125/60; PULSE 84
[2019-09-08] MEDS: NITROGLYCERIN 0.4 MG SUBL TABLET SL PRN
[2019-09-08] MEDS: methylPREDNISolone INJ 125 MG/2 ML VIAL (J2930) IV SCH ×3 (00:33→16:59)
[2019-09-08] MEDS ORDERED: IPRATROPIUM 0.5MG/ALBUTEROL 2.5MG INH SOL UD 3ML (DUONEB)(J7620) NEB PRN (00:45)
[2019-09-08 00:54] LABS: CK-MB VALUE MASS 4.8 NG/ML (<3.6); CPK CREATINE PHOSPHOKINASE 173 U/L (26-192); MB/CK RELATIVE INDEX 2.77 (< OR =4); TROPONIN I < 0.02 NG/ML (< 0.10)
[2019-09-08] MEDS: IPRATROPIUM 0.5MG/ALBUTEROL 2.5MG INH SOL UD 3ML (DUONEB)(J7620) NEB SCH ×6 (01:43→20:00)
[2019-09-08 04:00] VITALS: BP 143/67
[2019-09-08] MEDS: SLF 3 ML SYR IV SCH ×4 (05:30→20:44)
[2019-09-08 07:15] VITALS: BP 151/72
[2019-09-08] MEDS: SYMBICORT 160/4.5MCG INHALER 6GM INH SCH ×2 (07:25→19:59)
[2019-09-08 08:01] LABS: HEMATOCRIT 37.9 % (36.0-47.0); HEMOGLOBIN 12.2 g/dl (12.0-15.5); MEAN CORPUSCULAR HEMOGLOBIN 29.1 pg (27.0-33.0); MEAN CORPUSCULAR HGB CONC 32.2 g/dl (32.0-36.5); MEAN CORPUSCULAR VOLUME 90.5 fl (80.0-96.0); PLATELET COUNT, AUTOMATED 326 10^3/uL (150-450); RED BLOOD COUNT 4.19 10^6/uL (4.00-5.40); WHITE BLOOD COUNT 11.1 10^3/uL (4.0-10.0)
[2019-09-08] MEDS: metFORMIN XR 500MG TAB *GLUCOPHAGE XR PO SCH (08:17)
[2019-09-08] MEDS: CETIRIZINE (ZyrTEC) 10 MG TAB PO SCH (08:17)
[2019-09-08] MEDS: PARoxetine 20 MG TAB PO SCH (08:17)
[2019-09-08] MEDS: MONTELUKAST 10 MG TAB PO SCH (08:17)
[2019-09-08] MEDS: HEPARIN SOD (PORCINE) 5000UNITS/ML VIAL (J1644 PER 1000UNITS) SC SCH ×2 (08:17→20:42)
[2019-09-08] MEDS: ASPIRIN 81 MG ENTERIC TAB PO SCH (08:17)
[2019-09-08] MEDS: PREGABALIN 75 MG CAP(LYRICA) PO SCH ×2 (08:17→20:42)
[2019-09-08] MEDS: HumaLOG INSULIN (NovoLOG) PER UNIT SC SCH ×4 (08:18→20:43)
[2019-09-08] MEDS: DOCUSATE SODIUM 100 MG CAP PO SCH ×2 (08:18→20:42)
[2019-09-08] MEDS: BISOPROLOL FUM 2.5 MG PER 1/2TAB PO SCH (08:18)
[2019-09-08 08:34] LABS: BLOOD UREA NITROGEN 32 MG/DL (7-18); CALCIUM LEVEL 9.1 MG/DL (8.8-10.2); CARBON DIOXIDE LEVEL 32 MEQ/L (21-32); CHLORIDE LEVEL 105 MEQ/L (98-107); CREATININE FOR GFR 0.88 MG/DL (0.55-1.30); GLOMERULAR FILTRATION RATE > 60.0 (>39); GLUCOSE, FASTING 198 MG/DL (70-100); POTASSIUM SERUM 4.2 MEQ/L (3.5-5.1); SODIUM LEVEL 142 MEQ/L (136-145)
--- NOTE | 2019-09-08 10:10 | IPNPDOC ---
Text Note Date of Service The patient was seen on 09/08/19. NOTE Subjective: Patient stated that her breathing continues to improve. Overnight patient had chest pain, EKG was done and it was negative for acute ischemic changes, troponin negative. Patient denied fever, chills, nausea, vomiting, diarrhea or dysuria Objective: VITAL SIGNS: Please see below. GENERAL: awake, alert, NAD HEENT: NCAT, anicteric sclera, [place] NECK: supple, no JVD CARDIOVASCULAR EXAMINATION: NS1S2, regular rate/rhythm RESPIRATORY EXAMINATION: Moderate Bilateral prolonged expiratory wheezes ABDOMINAL EXAMINATION: positive bowel sounds x 4, NT EXTREMITIES: no cyanosis, clubbing, edema SKIN: warm, no rashes. NEUROLOGICAL EXAMINATION: AAO x 3, no motor/sensory deficits PSYCHIATRIC EXAMINATION: calm, normal affect Patient is 68 years old female with past medical history of COPD, diabetes mellitus, hyperlipidemia, GERD, chronic interstitial pulmonary fibrosis, CAD status post 2 cardiac stents in 2018, presented with chief complaints of increasing shortness of breath. Patient was found to have COPD exacerbation. COPD exacerbation Patient is active smoker, noncompliant Continue oxygen Continue inhalers, steroids Due to increased sputum production and cough, I started levofloxacin Interstitial pulmonary fibrosis Follow-up with compressor station chief engineer in the outpatient settings CHF r/o Patient has never been diagnosed with CHF On 09/06/27 showed Normal left ventricle internal dimensions and wall thickness. Normal regional left ventricular (LV) wall motion and wall thickening. Normal LV systolic function. Left ventricular ejection fraction (LVEF) 65% by visual estimate. Normal LV diastolic function for age. I stopped Lasix Diabetes Glucose levels under control Insulin sliding scale Patient requested regular diet instead of diabetes diet. Coronary artery diseases Patient doesn't have any chest pain, EKG negative for acute ischemic changes Continue home cardioprotective medications VS,Fishbone, I+O VS, Fishbone, I+O Laboratory Tests 09/08/19 07:52 Vital Signs Date Time Temp Pulse Resp B/P (MAP) Pulse Ox O2 Delivery O2 Flow Rate FiO2 09/08/19 08:18 77 151/72 09/08/19 08:00 2.0 09/08/19 07:15 97.6 22 91 Nasal Cannula 09/06/19 22:30 I&O- Last 24 Hours up to 6 AM 09/08/19 06:00 Intake Total 730 ml Output Total 200 ml Balance 530 ml DROZHZHIN,CASSIE DO September 08, 2019 10:10
--- NOTE | 2019-09-08 10:50 | ECGEPIP ---
[facility] Test Date: 2019-09-08 Pat Name: TRICIA SHOOK Department: Room: [place] [address] Gender: Female Care Consultant: DIANE : [id number] Requested By: MELITON TORREZ D.O. Order Number: [id number] Reading MD: Fransico Light Measurements Intervals [place] Rate: 88 P: 90 [place]: 158 QRS: 57 QRSD: 86 T: 60 QT: 317 QTc: 385 Interpretive Statements SINUS RHYTHM WITH OCCASIONAL SUPRAVENTRICULAR PREMATURE COMPLEXES NONSPECIFIC T-WAVE ABNORMALITY SIMILAR TO 09/06/19, PAC's ARE NEW Electronically Signed on 09-08-2019 10:50:33 EDT by Fransico Light
[2019-09-08 12:00] VITALS: BP 148/67
[2019-09-08 16:00] VITALS: BP 149/70
[2019-09-08] MEDS: LevoFLOXacin 500 MG TABLET PO SCH (16:59)
[2019-09-08 20:00] VITALS: BP 160/77
[2019-09-08] MEDS: EZETIMIBE 10 MG TAB (ZETIA) PO SCH (20:42)
[2019-09-08] MEDS: ATORVASTATIN 20 MG TAB PO SCH (20:42)
[2019-09-08] MEDS: OMEPRAZOLE 20 MG CAP PO SCH (20:42)
[2019-09-09] VITALS: BP 136/67
[2019-09-09] MEDS: IPRATROPIUM 0.5MG/ALBUTEROL 2.5MG INH SOL UD 3ML (DUONEB)(J7620) NEB SCH ×6 (00:08→20:00)
[2019-09-09] MEDS: methylPREDNISolone INJ 125 MG/2 ML VIAL (J2930) IV SCH ×3 (00:20→17:27)
[2019-09-09 04:00] VITALS: BP 130/61
[2019-09-09 05:42] LABS: BASO % 0.2 % (0.0-1.0); HEMATOCRIT 39.7 % (36.0-47.0); HEMOGLOBIN 12.8 g/dl (12.0-15.5); LYMPH # 0.5 10^3/uL (1.5-5.0); LYMPH % 6.3 % (24.0-44.0); MEAN CORPUSCULAR HEMOGLOBIN 29.7 pg (27.0-33.0); MEAN CORPUSCULAR HGB CONC 32.2 g/dl (32.0-36.5); MEAN CORPUSCULAR VOLUME 92.1 fl (80.0-96.0); MONO # 0.4 10^3/uL (0.0-0.8); MONO % 4.7 % (0.0-5.0); NEUTROPHILS # 7.4 10^3/uL (1.5-8.5); NEUTROPHILS % 86.5 % (36.0-66.0); PLATELET COUNT, AUTOMATED 290 10^3/uL (150-450); RED BLOOD COUNT 4.31 10^6/uL (4.00-5.40); WHITE BLOOD COUNT 8.6 10^3/uL (4.0-10.0)
[2019-09-09] MEDS: SLF 3 ML SYR IV SCH ×3 (05:59→21:07)
[2019-09-09 06:10] LABS: BLOOD UREA NITROGEN 26 MG/DL (7-18); CALCIUM LEVEL 8.6 MG/DL (8.8-10.2); CARBON DIOXIDE LEVEL 32 MEQ/L (21-32); CHLORIDE LEVEL 104 MEQ/L (98-107); CREATININE FOR GFR 0.82 MG/DL (0.55-1.30); GLOMERULAR FILTRATION RATE > 60.0 (>39); GLUCOSE, FASTING 189 MG/DL (70-100); MAGNESIUM LEVEL 2.3 MG/DL (1.8-2.4); POTASSIUM SERUM 4.6 MEQ/L (3.5-5.1); SODIUM LEVEL 142 MEQ/L (136-145)
[2019-09-09] MEDS: SYMBICORT 160/4.5MCG INHALER 6GM INH SCH ×2 (07:31→20:23)
[2019-09-09 08:00] VITALS: BP 151/72
[2019-09-09] MEDS: ASPIRIN 81 MG ENTERIC TAB PO SCH (08:15)
[2019-09-09] MEDS: HumaLOG INSULIN (NovoLOG) PER UNIT SC SCH ×4 (08:15→21:00)
[2019-09-09] MEDS: DOCUSATE SODIUM 100 MG CAP PO SCH ×2 (08:15→21:09)
[2019-09-09] MEDS: PREGABALIN 75 MG CAP(LYRICA) PO SCH ×2 (08:15→21:08)
[2019-09-09] MEDS: HEPARIN SOD (PORCINE) 5000UNITS/ML VIAL (J1644 PER 1000UNITS) SC SCH ×2 (08:15→21:08)
[2019-09-09] MEDS: MONTELUKAST 10 MG TAB PO SCH (08:16)
[2019-09-09] MEDS: BISOPROLOL FUM 2.5 MG PER 1/2TAB PO SCH (08:16)
[2019-09-09] MEDS: metFORMIN XR 500MG TAB *GLUCOPHAGE XR PO SCH (08:16)
[2019-09-09] MEDS: PARoxetine 20 MG TAB PO SCH (08:16)
[2019-09-09] MEDS: CETIRIZINE (ZyrTEC) 10 MG TAB PO SCH (08:16)
[2019-09-09 11:28] VITALS: BP 123/59
--- NOTE | 2019-09-09 12:00 | IPNPDOC ---
Text Note Date of Service The patient was seen on 09/09/19. NOTE Subjective: Patient stated that her breathing continues to improve. No any acute events overnight. Patient denied fever, chills, nausea, vomiting, diarrhea or dysuria Objective: VITAL SIGNS: Please see below. GENERAL: awake, alert, NAD HEENT: NCAT, anicteric sclera, [place] NECK: supple, no JVD CARDIOVASCULAR EXAMINATION: NS1S2, regular rate/rhythm RESPIRATORY EXAMINATION: Mild Bilateral prolonged expiratory wheezes ABDOMINAL EXAMINATION: positive bowel sounds x 4, NT EXTREMITIES: no cyanosis, clubbing, edema SKIN: warm, no rashes. NEUROLOGICAL EXAMINATION: AAO x 3, no motor/sensory deficits PSYCHIATRIC EXAMINATION: calm, normal affect Patient is 68 years old female with past medical history of COPD, diabetes mellitus, hyperlipidemia, GERD, chronic interstitial pulmonary fibrosis, CAD status post 2 cardiac stents in 2018, presented with chief complaints of increas ing shortness of breath. Patient was found to have COPD exacerbation. COPD exacerbation Patient is active smoker, noncompliant Continue oxygen Continue inhalers, steroids Due to increased sputum production and cough, I started levofloxacin Interstitial pulmonary fibrosis Follow-up with cut in station operator in the outpatient settings CHF r/o Patient has never been diagnosed with CHF On 09/06/27 showed Normal left ventricle internal dimensions and wall thickness. Normal regional left ventricular (LV) wall motion and wall thickening. Normal LV systolic function. Left ventricular ejection fraction (LVEF) 65% by visual estimate. Normal LV diastolic function for age. I stopped Lasix Diabetes Glucose levels under control Insulin sliding scale Patient requested regular diet instead of diabetes diet. Coronary artery diseases Patient doesn't have any chest pain, EKG negative for acute ischemic changes Continue home cardioprotective medications VS,Fishbone, I+O VS, Fishbone, I+O Laboratory Tests 09/09/19 05:26 Vital Signs Date Time Temp Pulse Resp B/P (MAP) Pulse Ox O2 Delivery O2 Flow Rate FiO2 09/09/19 11:30 2.0 09/09/19 11:28 98.0 72 20 123/59 (80) 93 Nasal Cannula 09/06/19 22:30 I&O- Last 24 Hours up to 6 AM 09/09/19 06:00 Intake Total 480 ml Output Total 1000 ml Balance -520 ml CASSIE LIRA DO September 09, 2019 11:59
[2019-09-09 16:00] VITALS: BP 122/58
[2019-09-09] MEDS: LevoFLOXacin 500 MG TABLET PO SCH (17:27)
[2019-09-09 20:00] VITALS: BP 126/64
[2019-09-09] MEDS: EZETIMIBE 10 MG TAB (ZETIA) PO SCH (21:08)
[2019-09-09] MEDS: ACETAMINOPHEN TAB 650MG DOSE (2X325MG) PO PRN (21:08)
[2019-09-09] MEDS: OMEPRAZOLE 20 MG CAP PO SCH (21:08)
[2019-09-09] MEDS: ATORVASTATIN 20 MG TAB PO SCH (21:09)
[2019-09-10] VITALS (7 sets, daily range): BP systolic 128–164; BP diastolic 63–82
[2019-09-10] MEDS: IPRATROPIUM 0.5MG/ALBUTEROL 2.5MG INH SOL UD 3ML (DUONEB)(J7620) NEB SCH ×7 (00:04→23:18)
[2019-09-10] MEDS: methylPREDNISolone INJ 125 MG/2 ML VIAL (J2930) IV SCH ×3 (00:18→17:34)
[2019-09-10 04:09] LABS: BASO % 0.4 % (0.0-1.0); HEMATOCRIT 40.4 % (36.0-47.0); HEMOGLOBIN 12.9 g/dl (12.0-15.5); LYMPH # 0.5 10^3/uL (1.5-5.0); LYMPH % 6.1 % (24.0-44.0); MEAN CORPUSCULAR HEMOGLOBIN 29.3 pg (27.0-33.0); MEAN CORPUSCULAR HGB CONC 31.9 g/dl (32.0-36.5); MEAN CORPUSCULAR VOLUME 91.6 fl (80.0-96.0); MONO # 0.4 10^3/uL (0.0-0.8); NEUTROPHILS # 7.4 10^3/uL (1.5-8.5); NEUTROPHILS % 86.4 % (36.0-66.0); PLATELET COUNT, AUTOMATED 293 10^3/uL (150-450); RED BLOOD COUNT 4.41 10^6/uL (4.00-5.40); WHITE BLOOD COUNT 8.5 10^3/uL (4.0-10.0)
[2019-09-10 04:30] LABS: BLOOD UREA NITROGEN 27 MG/DL (7-18); CALCIUM LEVEL 8.7 MG/DL (8.8-10.2); CARBON DIOXIDE LEVEL 30 MEQ/L (21-32); CHLORIDE LEVEL 104 MEQ/L (98-107); CREATININE FOR GFR 0.96 MG/DL (0.55-1.30); GLOMERULAR FILTRATION RATE > 60.0 (>39); GLUCOSE, FASTING 170 MG/DL (70-100); MAGNESIUM LEVEL 2.2 MG/DL (1.8-2.4); POTASSIUM SERUM 4.3 MEQ/L (3.5-5.1); SODIUM LEVEL 142 MEQ/L (136-145)
[2019-09-10] MEDS: SLF 3 ML SYR IV SCH ×3 (05:58→20:57)
[2019-09-10] MEDS: SYMBICORT 160/4.5MCG INHALER 6GM INH SCH ×2 (07:23→19:52)
[2019-09-10] MEDS: metFORMIN XR 500MG TAB *GLUCOPHAGE XR PO SCH (08:35)
[2019-09-10] MEDS: PARoxetine 20 MG TAB PO SCH (08:36)
[2019-09-10] MEDS: DOCUSATE SODIUM 100 MG CAP PO SCH ×2 (08:36→20:56)
[2019-09-10] MEDS: HumaLOG INSULIN (NovoLOG) PER UNIT SC SCH ×4 (08:36→20:56)
[2019-09-10] MEDS: HEPARIN SOD (PORCINE) 5000UNITS/ML VIAL (J1644 PER 1000UNITS) SC SCH ×2 (08:36→20:56)
[2019-09-10] MEDS: BISOPROLOL FUM 2.5 MG PER 1/2TAB PO SCH (08:37)
[2019-09-10] MEDS: ASPIRIN 81 MG ENTERIC TAB PO SCH (08:37)
[2019-09-10] MEDS: CETIRIZINE (ZyrTEC) 10 MG TAB PO SCH (08:38)
[2019-09-10] MEDS: MONTELUKAST 10 MG TAB PO SCH (08:38)
[2019-09-10] MEDS: PREGABALIN 75 MG CAP(LYRICA) PO SCH ×2 (08:38→20:56)
--- NOTE | 2019-09-10 12:52 | IPNPDOC ---
Text Note Date of Service The patient was seen on 09/10/19. NOTE Subjective: Patient stated that her breathing continues to improve. During [place] adrian w/o oxygen patient was desaturated to 84%. Currently patient is 1 L of oxygen No any acute events overnight. Patient denied fever, chills, nausea, vomiting, diarrhea or dysuria Objective: VITAL SIGNS: Please see below. GENERAL: awake, alert, NAD HEENT: NCAT, anicteric sclera, [place] NECK: supple, no JVD CARDIOVASCULAR EXAMINATION: NS1S2, regular rate/rhythm RESPIRATORY EXAMINATION: Mild Bilateral prolonged expiratory wheezes ABDOMINAL EXAMINATION: positive bowel sounds x 4, NT EXTREMITIES: no cyanosis, clubbing, edema SKIN: warm, no rashes. NEUROLOGICAL EXAMINATION: AAO x 3, no motor/sensory deficits PSYCHIATRIC EXAMINATION: calm, normal affect Patient is 68 years old female with past medical history of COPD, diabetes mellitus, hyperlipidemia, GERD, chronic interstitial pulmonary fibrosis, CAD status post 2 cardiac stents in 2018, presented with chief complaints of increasing shortness of breath. Patient was found to have COPD exacerbation. COPD exacerbation Patient is active smoker, noncompliant Continue oxygen Continue inhalers, steroids Due to increased sputum production and cough, I started levofloxacin Interstitial pulmonary fibrosis Follow-up with cold patcher in the outpatient settings CHF r/o Patient has never been diagnosed with CHF On 09/06/27 showed Normal left ventricle internal dimensions and wall thickness. Normal regional left ventricular (LV) wall motion and wall thickening. Normal LV systolic function. Left ventricular ejection fraction (LVEF) 65% by visual estimate. Normal LV diastolic function for age. I stopped Lasix Diabetes Glucose levels under control Insulin sliding scale Patient requested regular diet instead of diabetes diet. Coronary artery diseases Patient doesn't have any chest pain, EKG negative for acute ischemic changes Continue home cardioprotective medications VS,Fishbone, I+O VS, Fishbone, I+O Laboratory Tests 09/10/19 03:49 Vital Signs Date Time Temp Pulse Resp B/P (MAP) Pulse Ox O2 Delivery O2 Flow Rate FiO2 09/10/19 11:42 98.4 85 18 139/67 (91) 95 Nasal Cannula 2.0 09/06/19 22:30 I&O- Last 24 Hours up to 6 AM 09/10/19 06:00 Intake Total 840 ml Output Total 950 ml Balance -110 ml CASSIE LIRA DO Sep 10, 2019 12:52
[2019-09-10] MEDS: LevoFLOXacin 500 MG TABLET PO SCH (17:34)
[2019-09-10] MEDS: EZETIMIBE 10 MG TAB (ZETIA) PO SCH (20:56)
[2019-09-10] MEDS: ATORVASTATIN 20 MG TAB PO SCH (20:57)
[2019-09-10] MEDS: OMEPRAZOLE 20 MG CAP PO SCH (20:57)
[2019-09-11] VITALS: BP 153/67
[2019-09-11] MEDS: methylPREDNISolone INJ 125 MG/2 ML VIAL (J2930) IV SCH ×2 (01:16→09:40)
[2019-09-11 04:00] VITALS: BP 166/77
[2019-09-11] MEDS: IPRATROPIUM 0.5MG/ALBUTEROL 2.5MG INH SOL UD 3ML (DUONEB)(J7620) NEB SCH ×3 (04:16→11:38)
[2019-09-11 04:28] LABS: BASO % 0.5 % (0.0-1.0); HEMATOCRIT 39.4 % (36.0-47.0); HEMOGLOBIN 12.9 g/dl (12.0-15.5); LYMPH # 0.6 10^3/uL (1.5-5.0); LYMPH % 6.7 % (24.0-44.0); MEAN CORPUSCULAR HEMOGLOBIN 29.8 pg (27.0-33.0); MEAN CORPUSCULAR HGB CONC 32.7 g/dl (32.0-36.5); MONO # 0.4 10^3/uL (0.0-0.8); MONO % 4.6 % (0.0-5.0); NEUTROPHILS % 85.4 % (36.0-66.0); PLATELET COUNT, AUTOMATED 286 10^3/uL (150-450); RED BLOOD COUNT 4.33 10^6/uL (4.00-5.40); WHITE BLOOD COUNT 8.2 10^3/uL (4.0-10.0)
[2019-09-11 04:44] LABS: BLOOD UREA NITROGEN 24 MG/DL (7-18); CALCIUM LEVEL 8.7 MG/DL (8.8-10.2); CARBON DIOXIDE LEVEL 31 MEQ/L (21-32); CHLORIDE LEVEL 102 MEQ/L (98-107); CREATININE FOR GFR 0.91 MG/DL (0.55-1.30); GLOMERULAR FILTRATION RATE > 60.0 (>39); GLUCOSE, FASTING 218 MG/DL (70-100); MAGNESIUM LEVEL 2.2 MG/DL (1.8-2.4); POTASSIUM SERUM 4.2 MEQ/L (3.5-5.1); SODIUM LEVEL 139 MEQ/L (136-145)
[2019-09-11] MEDS: SLF 3 ML SYR IV SCH (05:39)
[2019-09-11] MEDS: SYMBICORT 160/4.5MCG INHALER 6GM INH SCH (07:31)
[2019-09-11 07:33] VITALS: BP 152/70
[2019-09-11] MEDS: BISOPROLOL FUM 2.5 MG PER 1/2TAB PO SCH (09:39)
[2019-09-11] MEDS: HumaLOG INSULIN (NovoLOG) PER UNIT SC SCH ×2 (09:39→11:46)
[2019-09-11] MEDS: PARoxetine 20 MG TAB PO SCH (09:39)
[2019-09-11] MEDS: metFORMIN XR 500MG TAB *GLUCOPHAGE XR PO SCH (09:40)
[2019-09-11] MEDS: PREGABALIN 75 MG CAP(LYRICA) PO SCH (09:40)
[2019-09-11] MEDS: ASPIRIN 81 MG ENTERIC TAB PO SCH (09:40)
[2019-09-11] MEDS: HEPARIN SOD (PORCINE) 5000UNITS/ML VIAL (J1644 PER 1000UNITS) SC SCH (09:40)
[2019-09-11] MEDS: CETIRIZINE (ZyrTEC) 10 MG TAB PO SCH (09:40)
[2019-09-11] MEDS: MONTELUKAST 10 MG TAB PO SCH (09:40)
[2019-09-11] MEDS: DOCUSATE SODIUM 100 MG CAP PO SCH (09:41)
[2019-09-11] MEDS ORDERED: PRED10TA2 PO (10:18)
[2019-09-11] MEDS ORDERED: DOCU100C16 PO (10:18)
[2019-09-11] MEDS ORDERED: LEVA1TAB2 PO (10:18)
--- NOTE | 2019-09-11 13:52 | DS.PDOC ---
Discharge Summary General Date of Admission September 06, 2019 at 03:53 Date of Discharge 09/11/2019 Discharge Summary PROCEDURES PERFORMED DURING STAY: [None]. ADMITTING DIAGNOSES / DISCHARGE DIAGNOSES: Shortness of breath - likely 2/2 acute exacerbation of COPD, unlikely 2/2 CHF Active smoker / nicotine dependence DM2 with Neuropathy DLP COPD / Chronic interstitial pulmonary fibrosis CAD status post 2 stents (2017) GERD DVT prophylaxis COMPLICATIONS/CHIEF COMPLAINT: Shortness of breath HISTORY OF PRESENT ILLNESS: Patient is a 68-year-old female with a past medical history of DM2, DLP, COPD, chronic interstitial pulmonary fibrosis, CAD status post 2 stents (2017), and GERD who presented to the hospital with complaints of shortness of breath. Patient was admitted to hospitalist service for suspected COPD exacerbation with possible CHF. HOSPITAL COURSE: Shortness of breath - likely 2/2 acute exacerbation of COPD, unlikely 2/2 CHF - Presented to the hospital with worsening short of breath. However, today has reported significant improvement - Physical without any evidence of wheezing - No leukocytosis or lactic acidosis - CXR 09/05: Evidence of COPD, hyperinflation, bibasilar fibrosis. No acute infiltrate seen. - Patient has been on Solu-Medrol; will discontinue and start prednisone taper - Given increased sputum production. Patient was started on Levaquin; will complete course of antibiotics - Continue with inhaled therapy as ordered - Advised patient to follow-up with primary care provider within the next 7 days Active smoker / nicotine dependence - Advised smoking cessation DM2 with Neuropathy - c/w ISS while inpatient - c/w Lyrica DLP - c/w Ezetimibe COPD / Chronic interstitial pulmonary fibrosis - See above CAD status post 2 stents (2017) - ECHO 09/05: EF 65%, normal LV diastolic function for age, no pericardial effusion, mild aortic valve sclerosis, no aortic regurgitation, mild mitral annular calcification, no mitral regurgitation, suggestive of mild elevation of pulmonary artery systolic pressure, lipomatous hypertrophy of intra-atrial septum - Results of echocardiogram are reported to patient, she's been advised to follow up with her primary care provider as well as cardiology within the next 7 days GERD - c/w Omeprazole DVT prophylaxis - c/w Heparin DISCHARGE MEDICATIONS: Please see below. ALLERGIES: Please see below. PHYSICAL EXAMINATION ON DISCHARGE: Vitals (See below) General: Lying in bed, no acute distress, comfortable, AAOx3 HEENT: NC, AT CVS: RRR, +S1S2 Lungs: Fair air entry b/l, no appreciable wheezing, rhonchi or rales Abdomen: Soft, ND, NT Extremities: - Edema, - Calf tenderness LABORATORY DATA: Please see below. ACTIVITY: [As tolerated]. DISCHARGE PLAN: Follow-up with primary care provider and cardiology within 7 days Remain complaints with treatment plan and medications Return to the ER if you experience any problems DISPOSITION: Home Health Service. DISCHARGE CONDITION: [Stable]. TIME SPENT ON DISCHARGE: 35 minutes. Vital Signs/I&Os Vital Signs Date Time Temp Pulse Resp B/P (MAP) Pulse Ox O2 Delivery O2 Flow Rate FiO2 09/11/19 07:33 98.2 83 20 152/70 (97) 91 Room Air 09/11/19 04:00 0.5 09/06/19 22:30 I&O- Last 24 Hours up to 6 AM 09/11/19 06:00 Intake Total 950 ml Output Total 1150 ml Balance -200 ml Laboratory Data Labs 24H Laboratory Tests 2 09/10/19 17:28: Bedside Glucose (Misc Panel) 80L 09/10/19 20:21: Bedside Glucose (Misc Panel) 272H 09/11/19 04:01: Immature Granulocyte % (Auto) 2.8, Neutrophils (%) (Auto) 85.4H, Lymphocytes (%) (Auto) 6.7L, Monocytes (%) (Auto) 4.6, Eosinophils (%) (Auto) 0.0, Basophils (%) (Auto) 0.5, Neutrophils # (Auto) 7.0, Lymphocytes # (Auto) 0.6L, Monocytes # (Auto) 0.4, Eosinophils # (Auto) 0.0, Basophils # (Auto) 0.0, Nucleated Red Blood Cells % (auto) 0.0, Anion Gap 6L, Glomerular Filtration Rate > 60.0, Calcium Level 8.7L, Magnesium Level 2.2 09/11/19 11:36: Bedside Glucose (Misc Panel) 193H CBC/BMP Laboratory Tests 09/11/19 04:01 FSBS Laboratory Tests Test 09/10/19 17:28 09/10/19 20:21 09/11/19 11:36 Range/Units Bedside Glucose (Misc Panel) 80 272 193 83-110 MG/DL Microbiology Microbiology 09/06/19 Coronavirus COVID-19 PCR (MICKEY) - Final, Complete 09/06/19 Respiratory Virus Panel (PCR) (MICKEY) - Final, Complete 09/06/19 Blood Culture - Final, Complete NO GROWTH AFTER 5 DAYS 09/06/19 Blood Culture - Final, Complete NO GROWTH AFTER 5 DAYS Discharge Medications Scheduled Aspirin (Aspirin EC) 81 Mg Tabec, 81 MG PO DAILY, (Reported) Atorvastatin Calcium (Atorvastatin Calcium) 80 Mg Tablet, 80 MG PO QHS, (Reported) Bisoprolol Fumarate (Bisoprolol Fumarate) 5 Mg Tab, 2.5 MG PO DAILY, (Reported) Budesonide/Formoterol (Symbicort 160-4.5 Mcg Inhaler) 60 Puff/Inhaler Aers, 2 PUFF INH BID, (Reported) Calcium Carbonate/Vitamin D3 (Calcium 500-Vit D3 200 Caplet) 1 Tab Tab, 1 TAB PO QHS, (Reported) Cetirizine HCl (Cetirizine HCl) 10 Mg Tablet, 10 MG PO DAILY, (Reported) Docusate Sodium (Docusate Sodium) 100 Mg Capsule, 100 MG PO BID Ezetimibe (Ezetimibe) 10 Mg Tablet, 10 MG PO QHS, (Reported) Levofloxacin (Levaquin) 500 Mg Tablet, 500 MG PO DAILY@1800 Metformin HCl (Metformin HCl ER) 500 Mg Tab.er.24h, 500 MG PO DAILY, (Reported) Montelukast Sodium (Montelukast Sodium) 10 Mg Tab, 10 MG PO DAILY, (Reported) Omeprazole (Omeprazole) 40 Mg Cap, 40 MG PO QHS, (Reported) Paroxetine HCl (Paroxetine HCl) 20 Mg Tab, 20 MG PO DAILY, (Reported) Prednisone (Prednisone) 10 Mg Tablet, 10 MG PO TAPER Take 4 tabs daily x 3 days, then 3 tabs daily x 3 days, then 2 tabs daily x 3 days, then 1 tab daily x 3 days and stop Pregabalin (Lyrica) 75 Mg Capsule, 75 MG PO BID, (Reported) Scheduled PRN Albuterol Sulf (Albuterol Sulfate) 2.5 Mg/3 Ml Nebu, 2.5 MG INH Q4H PRN for WHEEZING, (Reported) Albuterol Sulfate (Proair Hfa) 108 Mcg/Act Aer, 2 PUFF INH QID PRN for SHORTNESS OF BREATH, (Reported) Alprazolam (Alprazolam) 0.25 Mg Tablet, 0.25 MG PO DAILY PRN for ANXIETY, (Reported) Nitroglycerin (Nitroglycerin) 0.4 Mg Tab.subl, 0.4 MG SL NITRO PRN for CHEST PAIN, (Reported) Allergies Coded Allergies: Penicillins (Verified Allergy, Severe, 09/06/19) vancomycin (Verified Allergy, Severe, 09/06/19) BOBBY DOHERTY MD Sep 11, 2019 13:52
[2019-09-12] MEDS ORDERED: PRED10TA2 PO (16:57)
[2019-09-12] MEDS ORDERED: DOCU100C16 PO (16:57)
[2019-09-12] MEDS ORDERED: LEVA1TAB2 PO (16:57)
== END 2019-09-11 12:46 | disposition home health service (06) | DRG 192 ==
LOC: M ED 00:39 → M ED INP 03:53 → ENRESERV 12:49 → M 4MAIN 14:05 → M PCU 09-07 16:40
PROVIDERS: ADMIT Internal Medicine; ATTEND Internal Medicine
DX: J44.1 Chronic obstructive pulmonary disease with (acute) exacerbation (principal); J84.10 Pulmonary fibrosis, unspecified; E11.40 Type 2 diabetes mellitus with diabetic neuropathy, unspecified; F17.210 Nicotine dependence, cigarettes, uncomplicated; I25.10 Atherosclerotic heart disease of native coronary artery without angina pectoris; Z95.2 Presence of prosthetic heart valve; K21.9 Gastro-esophageal reflux disease without esophagitis; Z79.82 Long term (current) use of aspirin; Z79.899 Other long term (current) drug therapy; Z88.0 Allergy status to penicillin; Z88.8 Allergy status to other drugs, medicaments and biological substances; E78.5 Hyperlipidemia, unspecified; Z96.642 Presence of left artificial hip joint

== ENCOUNTER 2019-09-12 14:53 | Inpatient (IN) | payer MEDICARE ==
[~2019-09-12] VITALS: Ht 154.9 cm; Wt 61.4 kg
[~2019-09-12 14:53] MED LIST changes: +ALL10TAB29 PO; +ALPR0.25 PO; +ATOR80TA59 PO; +DOCU100C16 PO; +EZET10TA21 PO; +LEVA1TAB2 PO; +LYRI75CA PO; +METF-838 PO; +NITR0.4S14 SL; +PRED10TA2 PO
[2019-09-12] MEDS ORDERED: methylPREDNISolone INJ 40 MG/1 ML VIAL (J2920) IV ONE (15:15)
[2019-09-12] MEDS ORDERED: IPRATROPIUM 0.5MG/ALBUTEROL 2.5MG INH SOL UD 3ML (DUONEB)(J7620) NEB ONE (15:15)
[2019-09-12] MEDS ORDERED: ALBUTEROL SULFATE 2.5 MG/0.5 ML INH NEB SOLN INH ONE (15:15)
[2019-09-12 15:30] LABS: BASO # 0.1 10^3/uL (0.0-0.2); BASO % 0.7 % (0.0-1.0); EOS # 0.2 10^3/uL (0.0-0.5); EOS % 1.2 % (0.0-3.0); HEMATOCRIT 43.4 % (36.0-47.0); HEMOGLOBIN 13.9 g/dl (12.0-15.5); LYMPH # 0.9 10^3/uL (1.5-5.0); LYMPH % 7.5 % (24.0-44.0); MEAN CORPUSCULAR HEMOGLOBIN 28.9 pg (27.0-33.0); MEAN CORPUSCULAR VOLUME 90.2 fl (80.0-96.0); MONO # 0.4 10^3/uL (0.0-0.8); MONO % 3.6 % (0.0-5.0); NEUTROPHILS # 10.4 10^3/uL (1.5-8.5); NEUTROPHILS % 84.2 % (36.0-66.0); PLATELET COUNT, AUTOMATED 303 10^3/uL (150-450); RED BLOOD COUNT 4.81 10^6/uL (4.00-5.40); WHITE BLOOD COUNT 12.3 10^3/uL (4.0-10.0)
[2019-09-12] MEDS ORDERED: guaiFENesin ER 600 MG TAB PO SCH (16:00)
[2019-09-12 16:09] LABS: ALBUMIN 3.5 GM/DL (3.2-5.2); ALT/SGPT 29 U/L (12-78); BILIRUBIN,DIRECT 0.2 MG/DL (0.0-0.2); BILIRUBIN,TOTAL 0.7 MG/DL (0.2-1.0); CK-MB VALUE MASS 3.3 NG/ML (<3.6); CPK CREATINE PHOSPHOKINASE 324 U/L (26-192); MB/CK RELATIVE INDEX 1.02 (< OR =4); NT-PRO BNP 452 PG/ML (<125); THYROXINE (T4) 9.5 UG/DL (4.5-12.0); TOTAL PROTEIN 6.6 GM/DL (6.4-8.2); TROPONIN I < 0.02 NG/ML (< 0.10)
--- NOTE | 2019-09-12 16:15 | REP ---
CHEST, SINGLE VIEW: COMPARISON: 09/06/2019 There is mild bibasilar fibrotic change which is stable. No acute infiltrate is seen. The heart is not enlarged. There is calcification of the thoracic aorta. Mediastinal silhouette is unchanged. IMPRESSION: Stable chronic findings without evidence of superimposed acute infiltrate. Electronically Signed by Sabas Sanchez MD 09/13/2019 07:18 P
[2019-09-12] MEDS ORDERED: ALBUTEROL SULFATE 2.5 MG/0.5 ML INH NEB SOLN NEB PRN (16:45)
[2019-09-12] MEDS ORDERED: PRED10TA2 PO (16:57)
[2019-09-12] MEDS ORDERED: DOCU100C16 PO (16:57)
[2019-09-12] MEDS ORDERED: LEVA1TAB2 PO (16:57)
[2019-09-12] MEDS ORDERED: DEXTROSE 50% 50 ML SYRINGE IV PRN (17:15)
[2019-09-12] MEDS ORDERED: GLUCAGON INJ 1MG VIAL SC PRN (17:15)
[2019-09-12] MEDS ORDERED: GLUCOSE 4GM CHEW TABLET PO PRN (17:15)
--- NOTE | 2019-09-12 17:23 | HPEPDOC ---
General Date of Admission 09/12/19 Date of Service: Sep 12, 2019 Chief Complaint The patient is a 68-year-old female admitted with a reason for visit of Difficulty Breathing. Source: Patient History of Present Illness 68 year old female was discharged from hospital on 09/11/19 after being treated for COPD exacerbation and was ok after going home but then towards the end of the day she started having worsened SOB which continued to worsen overnight with wheezing. She was unable to lay down, was mostly sitting up leaning forward. She used her nebs and inhalors. This am her breathing was really bad. She did admit to going home a smoking only " 2 puffs". The visiting Nurse had come to see her and found her oxygen to be in 70s so was sent to the ED. On arrival to the ED she was saturating at 79% in room air, her resp rate was 24. She received 4 neb treatments with some improvement however continued to be hypoxic requiring oxygen supplementation. She does not use any home oxygen. She was admitted for acute respiratory failure with hypoxia. Home Medications Scheduled Aspirin (Aspirin EC) 81 Mg Tabec, 81 MG PO DAILY, (Reported) Atorvastatin Calcium (Atorvastatin Calcium) 80 Mg Tablet, 80 MG PO QHS, (Reported) Bisoprolol Fumarate (Bisoprolol Fumarate) 5 Mg Tab, 2.5 MG PO DAILY, (Reported) Budesonide/Formoterol (Symbicort 160-4.5 Mcg Inhaler) 60 Puff/Inhaler Aers, 2 PUFF INH BID, (Reported) Calcium Carbonate/Vitamin D3 (Calcium 500-Vit D3 200 Caplet) 1 Tab Tab, 1 TAB PO QHS, (Reported) Cetirizine HCl (Cetirizine HCl) 10 Mg Tablet, 10 MG PO DAILY, (Reported) Docusate Sodium (Docusate Sodium) 100 Mg Capsule, 100 MG PO BID, (Reported) Ezetimibe (Ezetimibe) 10 Mg Tablet, 10 MG PO QHS, (Reported) Levofloxacin (Levaquin) 500 Mg Tablet, 500 MG PO DAILY, (Reported) FOR 3 DAYS, FILLED 09/11/19 Metformin HCl (Metformin HCl ER) 500 Mg Tab.er.24h, 500 MG PO DAILY, (Reported) Montelukast Sodium (Montelukast Sodium) 10 Mg Tab, 10 MG PO DAILY, (Reported) Omeprazole (Omeprazole) 40 Mg Cap, 40 MG PO QHS, (Reported) Paroxetine HCl (Paroxetine HCl) 20 Mg Tab, 20 MG PO DAILY, (Reported) Prednisone (Prednisone) 10 Mg Tablet, 10 MG PO TAPER, (Reported) Take 4 tabs daily x 3 days, then 3 tabs daily x 3 days, then 2 tabs daily x 3 days, then 1 tab daily x 3 days and stop Pregabalin (Lyrica) 75 Mg Capsule, 75 MG PO BID, (Reported) Scheduled PRN Albuterol Sulf (Albuterol Sulfate) 2.5 Mg/3 Ml Nebu, 2.5 MG INH Q4H PRN for WHEEZING, (Reported) Albuterol Sulfate (Proair Hfa) 108 Mcg/Act Aer, 2 PUFF INH QID PRN for SHORTNESS OF BREATH, (Reported) Nitroglycerin (Nitroglycerin) 0.4 Mg Tab.subl, 0.4 MG SL NITRO PRN for CHEST PAIN, (Reported) Allergies Coded Allergies: vancomycin (Verified Allergy, Severe, N/V, ITCH, 09/12/19) Penicillins (Verified Allergy, Mild, RASH, 09/12/19) Past Medical History Medical History COPD DONTE does not have CPAP Active smoker / nicotine dependence DM2 with Neuropathy DLP COPD / Chronic interstitial pulmonary fibrosis CAD status post 2 stents (2018) GERD Periodic limb movement disorder Surgical History Left hip replacement, bilateral rotator cuff repair 4 times , ulnar nerve release on the right elbow Coppertone or release on right side, 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, hysterectomy, appendectomy, tonsillectomy Family History Significant Family History: Cancer, Hypertension (both parents) Social History * Smoker: current smoker A-FIB/CHADSVASC A-FIB History Current/History of A-Fib/PAF?: No Vital Signs Vital Signs Date Time Temp Pulse Resp B/P (MAP) Pulse Ox O2 Delivery O2 Flow Rate FiO2 09/12/19 16:15 164/94 (117) 09/12/19 16:08 86 90 09/12/19 14:53 98.2 24 Room Air Laboratory Data Labs 24H Laboratory Tests 2 09/12/19 15:15: Immature Granulocyte % (Auto) 2.8, Neutrophils (%) (Auto) 84.2H, Lymphocytes (%) (Auto) 7.5L, Monocytes (%) (Auto) 3.6, Eosinophils (%) (Auto) 1.2, Basophils (%) (Auto) 0.7, Neutrophils # (Auto) 10.4H, Lymphocytes # (Auto) 0.9L, Monocytes # (Auto) 0.4, Eosinophils # (Auto) 0.2, Basophils # (Auto) 0.1, Nucleated Red Blood Cells % (auto) 0.0, Lactic Acid Level 1.2, Total Bilirubin 0.7, Direct Bilirubin 0.2, Aspartate Amino Transf (AST/SGOT) 19, Alanine Aminotransferase (ALT/SGPT) 29, Alkaline Phosphatase 76, Total Creatine Kinase 324H, Creatine Kinase MB 3.3, Creatine Kinase MB Relative Index 1.02, Troponin I < 0.02, XI-Fao-V-Type Natriuretic Peptide 452H, Total Protein 6.6, Albumin 3.5, Albumin/Globulin Ratio 1.1L, Thyroid Stimulating Hormone (TSH) 1.290, Thyroxine (T4) 9.5 09/12/19 15:18: POC Glucose (Misc Panel) 149H, POC Sodium (Misc Panel) 140, POC Potassium (Misc Panel) 4.0, POC Chloride (Misc Panel) 101, POC Total CO2 (Misc Panel) 28.0H, POC Blood Urea Nitrogen (Misc Panel 32H, POC Ionized Calcium (Misc Panel) 4.7, POC Creatinine (Misc Panel) 0.9, POC Hematocrit (Misc Panel) 43.0 09/12/19 15:19: POC Total CO2 (Misc Panel) 32.0H, POC pH (Misc Panel) 7.408, POC Base Excess (Misc Panel) 6.0H, POC Saturated Percent O2 (Misc) 97, POC pO2 (Misc Panel) 92.0, POC pCO2 (Misc Panel) 48.1H, POC HCO3 (Misc Panel) 30.4H CBC/BMP Laboratory Tests 09/12/19 15:15 Microbiology Microbiology 09/12/19 Blood Culture, Received Pending Assessment/Plan 68 year old female was discharged from hospital on 09/11/19 after being treated for COPD exacerbation and was ok after going home but then towards the end of the day she started having worsened SOB which continued to worsen overnight with wheezing. She was unable to lay down, was mostly sitting up leaning forward. She used her nebs and inhalors. This am her breathing was really bad. The visiting Nurse had come to see her and found her oxygen to be in 70s so was sent to the ED. On arrival to the ED she was saturating at 79% in room air, her resp rate was 24. She received 4 neb treatments with some improvement however continued to be hypoxic requiring oxygen supplementation. She does not use any home oxygen. She was admitted for acute respiratory failure with hypoxia. Acute respiratory failure with hypoxia will continue with oxygen supplementation steroids, nebs COPD exacerbation continue duonebs, methyl pred, symbicort continue levofloxacin 2 more days. Diabetes with neuropathy hold metformin will give lispro sliding scale, lyrica Allergies continue singulair, cetrizine. hyperlipidemia zetia, statin GERD PPI CAD s/p stents continue bisoprolol and ASA. Plan / VTE VTE Prophylaxis Ordered?: Yes PRESTON MONTEZ MD Sep 12, 2019 16:40
[2019-09-12] MEDS: HumaLOG INSULIN (NovoLOG) PER UNIT SC SCH ×2 (17:30→20:53)
[2019-09-12 18:00] VITALS: BP 148/78
--- NOTE | 2019-09-12 19:22 | ECGEPIP ---
[facility] - ED Test Date: 2019-09-12 Pat Name: TRICIA SHOOK Department: Room: - Gender: Female Long Term: : 1950 Requested By: Graham Ordoñez Order Number: [id number] Reading MD: Graham Ordoñez Measurements Intervals [place] Rate: 74 P: 78 CO: 153 QRS: 52 QRSD: 84 T: 52 QT: 379 QTc: 423 Interpretive Statements SINUS RHYTHM NONSPECIFIC ST T WAVE CHANGES DELAYED R WAVE PROGRESSION CW 09/08/[address] T WAVE CHANGES Electronically Signed on 09-12-2019 19:22:08 EDT by Graham Ordoñez
[2019-09-12] MEDS: SYMBICORT 160/4.5MCG INHALER 6GM INH SCH (19:34)
[2019-09-12] MEDS: IPRATROPIUM 0.5MG/ALBUTEROL 2.5MG INH SOL UD 3ML (DUONEB)(J7620) NEB SCH (19:45)
[2019-09-12] MEDS ORDERED: SYMBICORT 160/4.5MCG INHALER 6GM INH SCH (21:00)
[2019-09-12] MEDS: PREGABALIN 75 MG CAP(LYRICA) PO SCH (21:24)
[2019-09-12] MEDS: methylPREDNISolone INJ 40 MG/1 ML VIAL (J2920) IV SCH (21:24)
[2019-09-12] MEDS: EZETIMIBE 10 MG TAB (ZETIA) PO SCH (21:25)
[2019-09-12] MEDS: ATORVASTATIN 20 MG TAB PO SCH (21:25)
[2019-09-12] MEDS: DOCUSATE SODIUM 100 MG CAP PO SCH (21:25)
[2019-09-12] MEDS: OMEPRAZOLE 20 MG CAP PO SCH (21:25)
[2019-09-12 22:00] VITALS: BP 115/70
[2019-09-13] MEDS: IPRATROPIUM 0.5MG/ALBUTEROL 2.5MG INH SOL UD 3ML (DUONEB)(J7620) NEB SCH ×6 (00:22→19:55)
[2019-09-13] MEDS: methylPREDNISolone INJ 40 MG/1 ML VIAL (J2920) IV SCH ×4 (04:05→21:48)
[2019-09-13] MEDS: LevoFLOXacin 500 MG TABLET PO SCH (05:34)
[2019-09-13 05:59] LABS: BASO # 0.1 10^3/uL (0.0-0.2); BASO % 0.8 % (0.0-1.0); HEMATOCRIT 41.7 % (36.0-47.0); HEMOGLOBIN 13.7 g/dl (12.0-15.5); LYMPH # 0.9 10^3/uL (1.5-5.0); LYMPH % 10.7 % (24.0-44.0); MEAN CORPUSCULAR HEMOGLOBIN 29.5 pg (27.0-33.0); MEAN CORPUSCULAR HGB CONC 32.9 g/dl (32.0-36.5); MEAN CORPUSCULAR VOLUME 89.9 fl (80.0-96.0); MONO # 0.6 10^3/uL (0.0-0.8); MONO % 6.7 % (0.0-5.0); NEUTROPHILS # 6.5 10^3/uL (1.5-8.5); PLATELET COUNT, AUTOMATED 297 10^3/uL (150-450); RED BLOOD COUNT 4.64 10^6/uL (4.00-5.40); WHITE BLOOD COUNT 8.3 10^3/uL (4.0-10.0)
[2019-09-13 06:00] VITALS: BP 149/78
[2019-09-13 06:21] LABS: BLOOD UREA NITROGEN 27 MG/DL (7-18); CALCIUM LEVEL 8.7 MG/DL (8.8-10.2); CARBON DIOXIDE LEVEL 31 MEQ/L (21-32); CHLORIDE LEVEL 105 MEQ/L (98-107); GLOMERULAR FILTRATION RATE > 60.0 (>39); GLUCOSE, FASTING 141 MG/DL (70-100); POTASSIUM SERUM 4.6 MEQ/L (3.5-5.1); SODIUM LEVEL 143 MEQ/L (136-145)
[2019-09-13] MEDS: SYMBICORT 160/4.5MCG INHALER 6GM INH SCH ×2 (07:34→19:56)
[2019-09-13] MEDS: ASPIRIN 81 MG ENTERIC TAB PO SCH (08:03)
[2019-09-13] MEDS: DOCUSATE SODIUM 100 MG CAP PO SCH ×2 (08:03→20:11)
[2019-09-13] MEDS: CETIRIZINE (ZyrTEC) 10 MG TAB PO SCH (08:04)
[2019-09-13] MEDS: ENOXAPARIN 40MG/0.4ML SYRINGE (J1650 PER 10MG) SC SCH (08:04)
[2019-09-13] MEDS: BISOPROLOL FUM 2.5 MG PER 1/2TAB PO SCH (08:04)
[2019-09-13] MEDS: MONTELUKAST 10 MG TAB PO SCH (08:04)
[2019-09-13] MEDS: PREGABALIN 75 MG CAP(LYRICA) PO SCH ×2 (08:04→20:11)
[2019-09-13] MEDS: PARoxetine 20 MG TAB PO SCH (08:04)
[2019-09-13] MEDS: HumaLOG INSULIN (NovoLOG) PER UNIT SC SCH ×4 (08:05→21:49)
[2019-09-13 14:00] VITALS: BP 102/53
[2019-09-13] MEDS: ACETYLCYSTEINE 20% 4 ML VIAL (200MG/ML) INH SCH ×2 (14:57→19:55)
[2019-09-13] MEDS ORDERED: FUROSEMIDE 20 MG TAB PO ONE (17:45)
[2019-09-13] MEDS ORDERED: PILL CUTTER 1 EACH XX PRN (18:00)
--- NOTE | 2019-09-13 18:02 | IPNPDOC ---
Subjective Date Seen The patient was seen on 09/13/19. Subjective Chief Complaint/HPI Pt is a 68 year old female recently discharged from hospital on 09/11/19 after tx for COPD exacerbation readmitted d/t dyspnea and hypoxia. Pt reported dyspnea worsened overnight with wheezing. Reported unable to lay down as well, was mostly sitting up leaning forward. Dyspnea cont to worsen and the visiting Nurse visited her and found her pulse ox was in the 70. In ED she was saturating at 79% in RA with RR 24. Pt received 4 neb treatments with mild improvement however continued to be hypoxic requiring oxygen supplementation. Pt was subse quently readmitted for acute respiratory failure with hypoxia. Pt was examined at bedside. She reported that she is still having dyspnea with cough. Reported feeling of chest congestion as well. Pt said that her cough is non-productive. Denies any fever, chills, nausea, vomiting, chest pain, or p alpitation. General: Denies: Chills Constitutional: Denies: Chills, Fever Pulmonary: Reports: Dyspnea, Cough Cardiovascular: Denies: Chest Pain, Palpitations, Edema Gastrointestinal: Denies: Nausea, Vomiting Musculoskeletal: Denies: Leg Pain Objective Physical Examination General Exam: Positive: Alert, Mild Distress, Moderate Distress Eye Exam: Positive: Conjunctiva & lids normal; Negative: Sclera icteric ENT Exam: Positive: Atraumatic, Mucous membr. moist/pink Neck Exam: Positive: Supple Chest Exam: Positive: Rales (b/l mild to mod throughout), Wheezing (mild b/l), Other (labored breathing noted with mild to mod accessory muscle use); Negative: Clear to auscultation, Normal air movement Heart Exam: Positive: Rate Normal, Regular Rhythm, Normal S1, Normal S2; Negative: Murmurs Abdomen Exam: Positive: Normal bowel sounds, Soft Extremity Exam: Positive: Other (moving all 4 extremities); Negative: Edema, Tenderness, Swelling Skin Exam: Positive: Nl turgor and temperature Neuro Exam: Positive: Normal Speech, Normal Tone, Sensation Intact Psych Exam: Positive: Mental status NL, Anxiety (mild), Memory Intact, Oriented x 3 Assessment /Plan Assessment Pt is a 68 year old female recently discharged from hospital on 09/11/19 tx after COPD exacerbation readmitted d/t dyspnea and hypoxia, cont to have labored breathing but sat well on NC. 1. Acute respiratory failure with hypoxia d/t COPD exacerbation, improved. Sat well on NC. Labored breathing with mild to mod accessory muscle use. Cont with oxygen supplementation. Cont steroids, nebs. Given pt has elevated BNP with labored dyspnea, will give a very lose dose of lasix 5mg PO as pt may have mild amount of fluid overload not obvious upon physical exam. 2. COPD exacerbation. Pt still has b/l crackles with wheezing and mild labor breathing. Continue duonebs, cont IV methylpred, symbicort, oxy therapy. Plan titrating down steroids pending clinical improvement. Continue levofloxacin day 4/5 prescribed upon last hospital discharge, cont 1 more day. 3. Diabetes with neuropathy. Cont to hold metformin. Cont lispro sliding scale, lyrica 4. Allergies continue singulair, cetrizine. 5. Hyperlipidemia. Cont zetia, statin 6. GERD. Cont PPI 7. CAD s/p stents. Continue bisoprolol and ASA. DVT prophylaxis: lovenox Pt on PPI for GERD Attending attestation: I evaluated and examined the patient in person; I discussed the care with Resident in detail and agree with the plan above. Plan/VTE VTE Prophylaxis Ordered?: Yes Disposition down titrating steroid pending resp status improvement VS, I&O, 24H, Fishbone Vital Signs/I&O Vital Signs Date Time Temp Pulse Resp B/P (MAP) Pulse Ox O2 Delivery O2 Flow Rate FiO2 09/13/19 14:00 98.1 81 18 102/53 (69) 89 Nasal Cannula 3.0 I&O- Last 24 Hours up to 6 AM 09/13/19 06:00 Intake Total 540 ml Output Total 950 ml Balance -410 ml Laboratory Data 24H LABS Laboratory Tests 2 09/12/19 18:10: Bedside Glucose (Misc Panel) 165H 09/12/19 20:43: Bedside Glucose (Misc Panel) 180H 09/13/19 05:33: Immature Granulocyte % (Auto) 3.8H, Neutrophils (%) (Auto) 78.0H, Lymphocytes (%) (Auto) 10.7L, Monocytes (%) (Auto) 6.7H, Eosinophils (%) (Auto) 0.0, Basophils (%) (Auto) 0.8, Neutrophils # (Auto) 6.5, Lymphocytes # (Auto) 0.9L, Monocytes # (Auto) 0.6, Eosinophils # (Auto) 0.0, Basophils # (Auto) 0.1, Nucleated Red Blood Cells % (auto) 0.0, Anion Gap 7L, Glomerular Filtration Rate > 60.0, Calcium Level 8.7L 09/13/19 11:19: Bedside Glucose (Misc Panel) 175H 09/13/19 16:22: Bedside Glucose (Misc Panel) 197H CBC/BMP Laboratory Tests 09/13/19 05:33 Microbiology Microbiology 09/12/19 Blood Culture, Received Pending 09/12/19 Blood Culture - Preliminary, Resulted No growth after 24 hours . All specim... GME ATTESTATION GME ATTESTATION My faculty preceptor for this patient encounter was physically present during the encounter and was fully available. All aspects of the patient interview, examination, medical decision making process, and medical care plan development were reviewed and approved by the faculty preceptor. The faculty preceptor is aware and concurs with the plan as stated in the body of this note and will attest to such by his/her cosignature. ERICA GRIER DO Sep 13, 2019 18:02 MARTÍN SHELDON MD Sep 17, 2019 08:24
[2019-09-13] MEDS: OMEPRAZOLE 20 MG CAP PO SCH (20:11)
[2019-09-13] MEDS: EZETIMIBE 10 MG TAB (ZETIA) PO SCH (20:11)
[2019-09-13] MEDS: ATORVASTATIN 20 MG TAB PO SCH (20:11)
[2019-09-13 22:00] VITALS: BP 120/58
[2019-09-14] MEDS: IPRATROPIUM 0.5MG/ALBUTEROL 2.5MG INH SOL UD 3ML (DUONEB)(J7620) NEB SCH ×6 (00:52→20:58)
[2019-09-14] MEDS: methylPREDNISolone INJ 40 MG/1 ML VIAL (J2920) IV SCH ×3 (04:07→17:28)
[2019-09-14] MEDS: LevoFLOXacin 500 MG TABLET PO SCH (05:15)
[2019-09-14 06:00] VITALS: BP 114/60
[2019-09-14 06:10] LABS: BASO # 0.1 10^3/uL (0.0-0.2); BASO % 0.4 % (0.0-1.0); EOS # 0.1 10^3/uL (0.0-0.5); EOS % 0.4 % (0.0-3.0); HEMATOCRIT 37.2 % (36.0-47.0); HEMOGLOBIN 12.1 g/dl (12.0-15.5); LYMPH # 1.2 10^3/uL (1.5-5.0); LYMPH % 9.1 % (24.0-44.0); MEAN CORPUSCULAR HEMOGLOBIN 29.3 pg (27.0-33.0); MEAN CORPUSCULAR HGB CONC 32.5 g/dl (32.0-36.5); MEAN CORPUSCULAR VOLUME 90.1 fl (80.0-96.0); MONO # 0.9 10^3/uL (0.0-0.8); MONO % 6.9 % (0.0-5.0); NEUTROPHILS # 10.8 10^3/uL (1.5-8.5); NEUTROPHILS % 80.8 % (36.0-66.0); PLATELET COUNT, AUTOMATED 289 10^3/uL (150-450); RED BLOOD COUNT 4.13 10^6/uL (4.00-5.40); WHITE BLOOD COUNT 13.4 10^3/uL (4.0-10.0)
[2019-09-14] MEDS: ACETAMINOPHEN TAB 650MG DOSE (2X325MG) PO PRN (06:17)
[2019-09-14 06:36] LABS: BLOOD UREA NITROGEN 24 MG/DL (7-18); CALCIUM LEVEL 8.1 MG/DL (8.8-10.2); CARBON DIOXIDE LEVEL 31 MEQ/L (21-32); CHLORIDE LEVEL 105 MEQ/L (98-107); CREATININE FOR GFR 0.86 MG/DL (0.55-1.30); GLOMERULAR FILTRATION RATE > 60.0 (>39); GLUCOSE, FASTING 194 MG/DL (70-100); SODIUM LEVEL 142 MEQ/L (136-145)
[2019-09-14] MEDS: ACETYLCYSTEINE 20% 4 ML VIAL (200MG/ML) INH SCH ×3 (07:32→20:59)
[2019-09-14] MEDS: SYMBICORT 160/4.5MCG INHALER 6GM INH SCH ×2 (07:32→20:59)
[2019-09-14] MEDS: MONTELUKAST 10 MG TAB PO SCH (08:14)
[2019-09-14] MEDS: ASPIRIN 81 MG ENTERIC TAB PO SCH (08:14)
[2019-09-14] MEDS: DOCUSATE SODIUM 100 MG CAP PO SCH ×2 (08:14→21:00)
[2019-09-14] MEDS: CETIRIZINE (ZyrTEC) 10 MG TAB PO SCH (08:14)
[2019-09-14] MEDS: PARoxetine 20 MG TAB PO SCH (08:14)
[2019-09-14] MEDS: BISOPROLOL FUM 2.5 MG PER 1/2TAB PO SCH (08:14)
[2019-09-14] MEDS: PREGABALIN 75 MG CAP(LYRICA) PO SCH ×2 (08:14→21:27)
[2019-09-14] MEDS: ENOXAPARIN 40MG/0.4ML SYRINGE (J1650 PER 10MG) SC SCH (08:15)
[2019-09-14] MEDS: HumaLOG INSULIN (NovoLOG) PER UNIT SC SCH ×4 (08:15→21:28)
--- NOTE | 2019-09-14 08:25 | IPNPDOC ---
Subjective Date Seen The patient was seen on 09/14/19. Subjective Chief Complaint/HPI Pt is a 68 year old female recently discharged from hospital on 09/11/19 after tx for COPD exacerbation readmitted d/t dyspnea and hypoxia. Pt reported dyspnea worsened overnight with wheezing. Reported unable to lay down as well, was mostly sitting up leaning forward. Dyspnea cont to worsen and the visiting Nurse visited her and found her pulse ox was in the 70. In ED she was saturating at 79% in RA with RR 24. Pt received 4 neb treatments with mild improvement however continued to be hypoxic requiring oxygen supplementation. Pt was subse quently readmitted for acute respiratory failure with hypoxia. Pt was examined at bedside. She stated that her exertional dyspnea and cough both were improved with nonproductive cough. Denies any fever, chills, nausea, vomiting, chest pain, palpitation, leg swelling, or calf pain. Pt now requires 3 L of oxygen compared to 2L oxygen but has been sat well 88-92% on 3L NC. Of note pt is noncompliant with night time CPAP General: Denies: Chills Constitutional: Denies: Chills, Fever Pulmonary: Reports: Dyspnea, Cough Cardiovascular: Denies: Chest Pain, Palpitations Gastrointestinal: Denies: Nausea, Vomiting, Abdominal Pain Musculoskeletal: Denies: Leg Pain Neurological: Denies: Change in speech Objective Physical Examination General Exam: Positive: Alert, Mild Distress Eye Exam: Positive: Conjunctiva & lids normal; Negative: Sclera icteric ENT Exam: Positive: Atraumatic, Mucous membr. moist/pink, Other ENT (NC in place) Neck Exam: Positive: Supple Chest Exam: Positive: Rales (b/l mild), Wheezing (on right lower lung field), Other ( mild accessory muscle use, able to speak in full sentences); Negative: Clear to auscultation, Normal air movement Heart Exam: Positive: Rate Normal, Regular Rhythm, Normal S1, Normal S2; Negative: Murmurs Abdomen Exam: Positive: Normal bowel sounds, Soft Extremity Exam: Positive: Other (moving all 4 extremities); Negative: Edema, Tenderness, Swelling Skin Exam: Positive: Nl turgor and temperature Neuro Exam: Positive: Normal Speech, Normal Tone, Sensation Intact Psych Exam: Positive: Mental status NL, Mood NL, Memory Intact, Oriented x 3 Assessment /Plan Assessment Pt is a 68 year old female recently discharged from hospital on 09/11/19 tx after COPD exacerbation readmitted d/t dyspnea and hypoxia, cont to have labored breathing but sat well on NC. 1. Acute respiratory failure with hypoxia d/t COPD exacerbation, improved. Sat well on 3 L NC. Mild to mod accessory muscle use. Cont with oxygen supplementation. Cont nebs, change IV methylprednisolone from Q6H to Q8H. Given pt has elevated BNP with labored dyspnea, so a very lose dose of lasix 5mg PO was given 09/13/2019 as pt may have mild amount of fluid overload not obvious upon physical exam, pt appeared euvolemic today. 2. COPD exacerbation, improved. Pt still has b/l crackles with wheezing and mild labor breathing. Continue duonebs, IV methylpred Q8H, symbicort, oxy therapy. Plan cont titrating down steroids pending clinical improvement. S/p levofloxacin day 08/13, prescribed starting last hospital discharge. CT chest 09/14/2019 showed marked emphysematous changes with evidence of bronchiolar narrowing within what is most likely an atelectatic right middle lobe; questionable chronic right middle lobe syndrome vs obstructing endobronchial lesion; consider pulmonary consultat 3. Diabetes with neuropathy. Cont to hold metformin. Cont lispro sliding scale, lyrica 4. Allergies continue singulair, cetrizine. 5. Hyperlipidemia. Cont zetia, statin 6. GERD. Cont PPI 7. CAD s/p stents. Continue bisoprolol and ASA. 8. DONTE non-compliant with CPAP. Of note pt is noncompliant with CPAP. May use own CPAP and will discuss with pt again tmrw DVT prophylaxis: lovenox Pt on PPI for GERD Plan/VTE VTE Prophylaxis Ordered?: Yes VS[facility]/I[facility]O Vital Signs Date Time Temp Pulse Resp B/P (MAP) Pulse Ox O2 Delivery O2 Flow Rate FiO2 09/14/19 08:14 103 121/63 09/14/19 06:00 98.7 18 94 Nasal Cannula 3.0 I&O- Last 24 Hours up to 6 AM 09/14/19 05:59 Intake Total 950 ml Output Total 650 ml Balance 300 ml Laboratory Data 24H LABS Laboratory Tests 2 09/13/19 11:19: Bedside Glucose (Misc Panel) 175H 09/13/19 16:22: Bedside Glucose (Misc Panel) 197H 09/13/19 20:19: Bedside Glucose (Misc Panel) 321H 09/14/19 05:44: Immature Granulocyte % (Auto) 2.4, Neutrophils (%) (Auto) 80.8H, Lymphocytes (%) (Auto) 9.1L, Monocytes (%) (Auto) 6.9H, Eosinophils (%) (Auto) 0.4, Basophils (%) (Auto) 0.4, Neutrophils # (Auto) 10.8H, Lymphocytes # (Auto) 1.2L, Monocytes # (Auto) 0.9H, Eosinophils # (Auto) 0.1, Basophils # (Auto) 0.1, Nucleated Red Blood Cells % (auto) 0.0, Anion Gap 6L, Glomerular Filtration Rate > 60.0, Calcium Level 8.1L CBC/BMP Laboratory Tests 09/14/19 05:44 Microbiology Microbiology 09/12/19 Blood Culture - Preliminary, Resulted No growth after 24 hours . All specim... 09/12/19 Blood Culture - Preliminary, Resulted No growth after 24 hours . All specim... ERICA GRIER DO Sep 14, 2019 08:25
--- NOTE | 2019-09-14 11:29 | REP ---
REASON FOR EXAM: Hypoxia. All prior chest CTs have been reviewed, the latest of which is dated 01/14/2018. The lack of intravenous contrast decreases the sensitivity of the exam. All prior exams for comparison have been performed after the administrations of intravenous contrast. Limited evaluation of the mediastinum and pulmonary georgette shows no evidence of interim development of a mass or adenopathy. There are no pleural or pericardial effusions. There is no evidence of significant change seen involving the imaged upper abdomen or imaged osseous structures. Evaluation of the lung hamlin again shows marked bullous emphysematous changes with marked lung field hyperexpansion and evidence of traction bronchiectasis, essentially stable, possibly increased somewhat compared to the prior exam. There is a new wedge-shaped opacity in the right middle lobe with air bronchograms within it. There appears to be bronchiolar narrowing within this segment of what is most likely atelectatic lung. There are no other significant changes in appearance of the lung hamlin. IMPRESSION: 1. Exam limitations as described above. 2. Marked emphysematous changes, as described above. 3. Evidence of bronchiolar narrowing within what is most likely an atelectatic right middle lobe. The etiology cannot be definitively determined by this exam whether or not there is chronic right middle lobe syndrome or an obstructing endobronchial lesion can not be determined. Pulmonary consultation is recommended. Electronically Signed by Behzad Fenton DO 09/14/2019 05:01 P
[2019-09-14 14:00] VITALS: BP 124/57
[2019-09-14] MEDS: OMEPRAZOLE 20 MG CAP PO SCH (21:27)
[2019-09-14] MEDS: ATORVASTATIN 20 MG TAB PO SCH (21:27)
[2019-09-14] MEDS: EZETIMIBE 10 MG TAB (ZETIA) PO SCH (21:27)
[2019-09-14] MEDS: NYSTATIN 500,000 U/5 ML SUSP UDC SS SCH (21:28)
[2019-09-14 22:00] VITALS: BP 121/79
[2019-09-15] MEDS: methylPREDNISolone INJ 40 MG/1 ML VIAL (J2920) IV SCH (02:38)
[2019-09-15] MEDS: IPRATROPIUM 0.5MG/ALBUTEROL 2.5MG INH SOL UD 3ML (DUONEB)(J7620) NEB SCH ×6 (04:00→19:56)
[2019-09-15 06:00] VITALS: BP 128/79
[2019-09-15 07:32] LABS: HEMATOCRIT 39.1 % (36.0-47.0); HEMOGLOBIN 12.5 g/dl (12.0-15.5); MEAN CORPUSCULAR HEMOGLOBIN 29.1 pg (27.0-33.0); MEAN CORPUSCULAR VOLUME 90.9 fl (80.0-96.0); PLATELET COUNT, AUTOMATED 293 10^3/uL (150-450); WHITE BLOOD COUNT 11.9 10^3/uL (4.0-10.0)
[2019-09-15 07:55] LABS: BLOOD UREA NITROGEN 22 MG/DL (7-18); CARBON DIOXIDE LEVEL 29 MEQ/L (21-32); CHLORIDE LEVEL 105 MEQ/L (98-107); CREATININE FOR GFR 0.72 MG/DL (0.55-1.30); GLOMERULAR FILTRATION RATE > 60.0 (>39); GLUCOSE, FASTING 164 MG/DL (70-100); POTASSIUM SERUM 4.6 MEQ/L (3.5-5.1); SODIUM LEVEL 139 MEQ/L (136-145)
[2019-09-15] MEDS: SYMBICORT 160/4.5MCG INHALER 6GM INH SCH ×2 (08:26→19:56)
[2019-09-15] MEDS: ACETYLCYSTEINE 20% 4 ML VIAL (200MG/ML) INH SCH (08:26)
[2019-09-15 08:37] LABS: LYMPHOCYTES 5 % (16-44); METAMYELOCYTES 2 % (0-0); MONOCYTES 3 % (0-5); NEUTROPHILS 89 % (28-66); PLATELET ESTIMATE NORMAL (NORMAL)
[2019-09-15] MEDS: ENOXAPARIN 40MG/0.4ML SYRINGE (J1650 PER 10MG) SC SCH (09:32)
[2019-09-15] MEDS: NYSTATIN 500,000 U/5 ML SUSP UDC SS SCH ×2 (09:32→21:21)
[2019-09-15] MEDS: PREGABALIN 75 MG CAP(LYRICA) PO SCH ×2 (09:33→21:21)
[2019-09-15] MEDS: DOCUSATE SODIUM 100 MG CAP PO SCH ×2 (09:33→21:21)
[2019-09-15] MEDS: CETIRIZINE (ZyrTEC) 10 MG TAB PO SCH (09:33)
[2019-09-15] MEDS: ASPIRIN 81 MG ENTERIC TAB PO SCH (09:33)
[2019-09-15] MEDS: PARoxetine 20 MG TAB PO SCH (09:33)
[2019-09-15] MEDS: HumaLOG INSULIN (NovoLOG) PER UNIT SC SCH ×4 (09:33→21:00)
[2019-09-15] MEDS: MONTELUKAST 10 MG TAB PO SCH (09:33)
[2019-09-15] MEDS: BISOPROLOL FUM 2.5 MG PER 1/2TAB PO SCH (09:35)
--- NOTE | 2019-09-15 09:43 | IPNPDOC ---
Subjective Date Seen The patient was seen on 09/15/19. Subjective Chief Complaint/HPI Pt is examined at bedside. She reported significant improvement in her dyspnea and cough. Reported non-productive cough. Pt said that her oxygen still drops when walking in in the high 80s%. Denies any fever or chills. Pt said she used CPAP at night. Pt is wondering if she has to take the mucomyst because the smell is not pleasant General: Denies: Chills Constitutional: Denies: Chills, Fever Pulmonary: Reports: Dyspnea (only exertinoal), Cough (dry) Cardiovascular: Denies: Chest Pain, Palpitations Gastrointestinal: Denies: Abdominal Pain, Diarrhea, Constipation, Hematochezia Objective Physical Examination General Exam: Positive: Alert, No Acute Distress Eye Exam: Positive: Conjunctiva & lids normal; Negative: Sclera icteric ENT Exam: Positive: Atraumatic, Mucous membr. moist/pink, Other ENT (NC in place) Neck Exam: Positive: Supple Chest Exam: Positive: Clear to auscultation, Diminished (mild b/l), Other ( minimal accessory muscle use, able to speak in full sentences); Negative: Normal air movement Heart Exam: Positive: Rate Normal, Regular Rhythm, Normal S1, Normal S2; Negative: Murmurs Abdomen Exam: Positive: Normal bowel sounds, Soft Extremity Exam: Negative: Edema, Tenderness, Swelling Skin Exam: Positive: Nl turgor and temperature Neuro Exam: Positive: Normal Speech, Normal Tone, Sensation Intact Psych Exam: Positive: Mental status NL, Mood NL, Memory Intact, Oriented x 3 Assessment /Plan Assessment Pt is a 68 year old female recently discharged from hospital on 09/11/19 tx after COPD exacerbation readmitted d/t dyspnea and hypoxia, cont to have labored breathing but sat well on NC. 1. Acute respiratory failure with hypoxia d/t COPD exacerbation, resolved. Sat well 89% on 2L NC during examination. Minimal accessory muscle use now. Cont with oxygen supplementation PRN. Cont nebs, change IV methylprednisolone 40mg from Q8H to Q12H. Given pt has elevated BNP with labored dyspnea, so a very lose dose of lasix 5mg PO was given 09/13/2019 as pt may have mild amount of fluid overload not obvious upon physical exam, pt cont to appear euvolemic 2. COPD exacerbation, improved. No wheezing now, mild decreased b/l lung sounds. Continue duonebs, symbicort, oxy therapy. Cont titrating down steroids pending clinical improvement. S/p levofloxacin day 08/13, prescribed starting last hospital discharge. CT chest 09/14/2019 showed marked emphysematous changes with evidence of bronchiolar narrowing within what is most likely an atelectatic right middle lobe; questionable chronic right middle lobe syndrome vs obstructing endobronchial lesion. Phone call made from our team with Dr. Lopez 09/14/2019 PM to discuss chest CT results, recommended follow up outpt with pulm in [address] IV methylpred Q8H d/c and pt will start IV methylprednisolone 40mg Q12H. 09/15/2019 AM pt received 20mg IV methylprednisoloneX2=40mg total in AM. D/C mucomyst 3. Diabetes with neuropathy. Cont to hold metformin. Cont lispro sliding scale, lyrica 4. Allergies continue singulair, cetrizine. 5. Hyperlipidemia. Cont zetia, statin 6. GERD. Cont PPI 7. CAD s/p stents. Continue bisoprolol and ASA. 8. DONTE non-compliant with CPAP. Of note pt is noncompliant with CPAP. Pt used CPAP in hospital starting 09/14/2019 night DVT prophylaxis: lovenox Pt on PPI for GERD DISPO: titrating down steroid for COPD exacerbation Plan/VTE VTE Prophylaxis Ordered?: Yes Plan Activity: Continue Current Medications: Taper Steroids Respiratory: Wean Oxygen Diagnostics: Repeat Labs in AM VS, I&O, 24H, Fishbone Vital Signs/I&O Vital Signs Date Time Temp Pulse Resp B/P (MAP) Pulse Ox O2 Delivery O2 Flow Rate FiO2 09/15/19 09:35 90 119/56 09/15/19 06:00 98.0 16 92 NIPPV (BIPAP/CPAP) 3.0 I&O- Last 24 Hours up to 6 AM 09/15/19 06:00 Intake Total 1180 ml Output Total 650 ml Balance 530 ml Laboratory Data 24H LABS Laboratory Tests 2 09/14/19 11:27: Bedside Glucose (Misc Panel) 298H 09/14/19 16:26: Bedside Glucose (Misc Panel) 168H 09/14/19 21:12: Bedside Glucose (Misc Panel) 295H 09/15/19 07:11: Immature Granulocyte % (Auto) , Neutrophils (%) (Auto) , Nucleated Red Blood Cells % (auto) 0.0, Neutrophils 89H, Band Neutrophils 1, Lymphocytes (Manual) 5L, Monocytes (Manual) 3, Metamyelocytes 2H, Red Blood Cell Morphology NORMAL, Anisocytosis , Platelet Estimate NORMAL, Anion Gap 5L, Glomerular Filtration Rate > 60.0, Calcium Level 8.0L CBC/BMP Laboratory Tests 09/15/19 07:11 Microbiology Microbiology 09/12/19 Blood Culture - Preliminary, Resulted No Growth after 48 hours. All Specime... 09/12/19 Blood Culture - Preliminary, Resulted No Growth after 48 hours. All Specime... ERICA GRIER DO Sep 15, 2019 09:43
[2019-09-15] MEDS ORDERED: methylPREDNISolone INJ 40 MG/1 ML VIAL (J2920) IV SCH ×2 (10:00→21:00)
[2019-09-15] MEDS ORDERED: methylPREDNISolone INJ 40 MG/1 ML VIAL (J2920) IV ONE (11:00)
[2019-09-15 14:00] VITALS: BP 112/56
[2019-09-15] MEDS: ACETAMINOPHEN TAB 650MG DOSE (2X325MG) PO PRN (15:59)
[2019-09-15] MEDS: EZETIMIBE 10 MG TAB (ZETIA) PO SCH (21:21)
[2019-09-15] MEDS: OMEPRAZOLE 20 MG CAP PO SCH (21:21)
[2019-09-15] MEDS: ATORVASTATIN 20 MG TAB PO SCH (21:21)
[2019-09-15 22:00] VITALS: BP 112/54
[2019-09-16] MEDS: IPRATROPIUM 0.5MG/ALBUTEROL 2.5MG INH SOL UD 3ML (DUONEB)(J7620) NEB SCH ×5 (00:15→20:00)
[2019-09-16 06:00] VITALS: BP 141/68
[2019-09-16 06:26] LABS: HEMATOCRIT 36.5 % (36.0-47.0); HEMOGLOBIN 11.8 g/dl (12.0-15.5); MEAN CORPUSCULAR HEMOGLOBIN 29.4 pg (27.0-33.0); MEAN CORPUSCULAR HGB CONC 32.3 g/dl (32.0-36.5); PLATELET COUNT, AUTOMATED 296 10^3/uL (150-450); RED BLOOD COUNT 4.01 10^6/uL (4.00-5.40); WHITE BLOOD COUNT 14.2 10^3/uL (4.0-10.0)
[2019-09-16 06:46] LABS: BLOOD UREA NITROGEN 23 MG/DL (7-18); CALCIUM LEVEL 8.1 MG/DL (8.8-10.2); CARBON DIOXIDE LEVEL 27 MEQ/L (21-32); CHLORIDE LEVEL 106 MEQ/L (98-107); CREATININE FOR GFR 0.76 MG/DL (0.55-1.30); GLOMERULAR FILTRATION RATE > 60.0 (>39); GLUCOSE, FASTING 207 MG/DL (70-100); POTASSIUM SERUM 4.3 MEQ/L (3.5-5.1); SODIUM LEVEL 140 MEQ/L (136-145)
[2019-09-16 07:09] LABS: ATYPICAL LYMPH 1 % (0-5); LYMPHOCYTES 12 % (16-44); MONOCYTES 7 % (0-5); NEUTROPHILS 78 % (28-66); PLATELET ESTIMATE NORMAL (NORMAL)
[2019-09-16] MEDS: SYMBICORT 160/4.5MCG INHALER 6GM INH SCH ×2 (08:43→20:11)
[2019-09-16] MEDS: predniSONE 20 MG TAB PO SCH (08:59)
[2019-09-16] MEDS: BISOPROLOL FUM 2.5 MG PER 1/2TAB PO SCH (08:59)
[2019-09-16] MEDS: PARoxetine 20 MG TAB PO SCH (08:59)
[2019-09-16] MEDS: ASPIRIN 81 MG ENTERIC TAB PO SCH (08:59)
[2019-09-16] MEDS: PREGABALIN 75 MG CAP(LYRICA) PO SCH ×2 (09:00→20:17)
[2019-09-16] MEDS: DOCUSATE SODIUM 100 MG CAP PO SCH ×2 (09:00→20:17)
[2019-09-16] MEDS: CETIRIZINE (ZyrTEC) 10 MG TAB PO SCH (09:00)
[2019-09-16] MEDS: MONTELUKAST 10 MG TAB PO SCH (09:00)
[2019-09-16] MEDS: ENOXAPARIN 40MG/0.4ML SYRINGE (J1650 PER 10MG) SC SCH (09:00)
[2019-09-16] MEDS: NYSTATIN 500,000 U/5 ML SUSP UDC SS SCH ×2 (09:00→20:18)
[2019-09-16] MEDS: HumaLOG INSULIN (NovoLOG) PER UNIT SC SCH ×4 (09:01→21:14)
[2019-09-16] MEDS: ACETAMINOPHEN TAB 650MG DOSE (2X325MG) PO PRN ×2 (10:27→18:28)
--- NOTE | 2019-09-16 11:47 | IPNPDOC ---
Date Seen The patient was seen on 09/16/19. Progress Note SUBJECTIVE: 68-year-old female with past medical history of COPD, hypertension, hyperlipidemia, diabetes mellitus is admitted for COPD exacerbation and hypoxemic respiratory failure. Patient has been improving daily with current treatment regimen, mild dyspnea and nonproductive cough today, no other complaints. She denies any chest pain, nausea, vomiting or diarrhea. 10 point review of system is negative except for above PHYSICAL EXAMINATION: VITAL SIGNS: Please see below. GENERAL: No distress HEENT: Normocephalic, atraumatic, moist mucous membranes NECK: Supple CARDIOVASCULAR EXAMINATION: S1, S2, no murmurs RESPIRATORY EXAMINATION: Poor air movement, mild wheezing ABDOMINAL EXAMINATION: Soft, nontender, nondistended, positive bowel sounds EXTREMITIES: Range of motion intact SKIN: No rash NEUROLOGICAL EXAMINATION: Alert and oriented 3, no focal deficits PSYCHIATRIC EXAMINATION: Calm and cooperative LABORATORY DATA, IMAGING STUDIES, MICROBIOLOGY: Please see below. ASSESSMENT AND PLAN: 68-year-old female with multiple medical comorbidities is admitted for COPD exacerbation and hypoxemic respiratory failure. PROBLEMS: 1. COPD exacerbation: Switch Solu-Medrol to prednisone 60 mg daily, continue Symbicort, Singulair, and DuoNeb as needed, supplemental oxygen as needed to rodrigo ntain O2 sats between 88-92%, pro-calcitonin negative, no need for antibiotics. 2. Hypoxemic respiratory failure: Secondary to above, we'll assess need for home oxygen tomorrow, continue supplemental oxygen as needed to maintain O2 sats between 80-92%. 3. Hypertension: Continue bisoprolol. 4. Diabetes mellitus: Continue sinus glazing coverage with meals and at bedtime 5. Hyperlipidemia: Continue atorvastatin and zetia 6. GERD: Continue PPI DVT prophylaxis: Lovenox GI prophylaxis: PPI VS, I&O, 24H, Fishbone Vital Signs/I&O Vital Signs Date Time Temp Pulse Resp B/P (MAP) Pulse Ox O2 Delivery O2 Flow Rate FiO2 09/16/19 09:00 2.0 09/16/19 08:59 78 141/68 09/16/19 06:00 97.7 19 93 Nasal Cannula I&O- Last 24 Hours up to 6 AM 09/16/19 05:59 Intake Total 300 ml Output Total 400 ml Balance -100 ml Laboratory Data 24H LABS Laboratory Tests 2 09/15/19 17:35: Bedside Glucose (Misc Panel) 177H 09/15/19 20:32: Bedside Glucose (Misc Panel) 193H 09/16/19 06:05: Immature Granulocyte % (Auto) , Neutrophils (%) (Auto) , Nucleated Red Blood Cells % (auto) 0.0, Neutrophils 78H, Band Neutrophils 2, Lymphocytes (Manual) 12L, Monocytes (Manual) 7H, Atypical Lymphocytes 1, Red Blood Cell Morphology NORMAL, Anisocytosis , Platelet Estimate NORMAL, Anion Gap 7L, Glomerular Filtration Rate > 60.0, Calcium Level 8.1L 09/16/19 11:35: Bedside Glucose (Misc Panel) 101 CBC/BMP Laboratory Tests 09/16/19 06:05 Microbiology Microbiology 09/12/19 Blood Culture - Preliminary, Resulted No Growth after 72 hours. All specime... 09/12/19 Blood Culture - Preliminary, Resulted No Growth after 72 hours. All specime... MARTÍN SHELDON MD Sep 16, 2019 11:47
[2019-09-16 14:00] VITALS: BP 137/67
[2019-09-16] MEDS: EZETIMIBE 10 MG TAB (ZETIA) PO SCH (20:17)
[2019-09-16] MEDS: ATORVASTATIN 20 MG TAB PO SCH (20:18)
[2019-09-16] MEDS: OMEPRAZOLE 20 MG CAP PO SCH (20:18)
[2019-09-16 22:00] VITALS: BP 127/63
[2019-09-17] MEDS: IPRATROPIUM 0.5MG/ALBUTEROL 2.5MG INH SOL UD 3ML (DUONEB)(J7620) NEB SCH ×4 (03:48→11:18)
[2019-09-17 06:00] VITALS: BP 135/67
[2019-09-17 06:11] LABS: HEMATOCRIT 37.5 % (36.0-47.0); HEMOGLOBIN 12.2 g/dl (12.0-15.5); MEAN CORPUSCULAR HEMOGLOBIN 29.3 pg (27.0-33.0); MEAN CORPUSCULAR HGB CONC 32.5 g/dl (32.0-36.5); MEAN CORPUSCULAR VOLUME 90.1 fl (80.0-96.0); PLATELET COUNT, AUTOMATED 279 10^3/uL (150-450); RED BLOOD COUNT 4.16 10^6/uL (4.00-5.40); WHITE BLOOD COUNT 12.6 10^3/uL (4.0-10.0)
[2019-09-17 06:34] LABS: BLOOD UREA NITROGEN 22 MG/DL (7-18); CALCIUM LEVEL 8.1 MG/DL (8.8-10.2); CARBON DIOXIDE LEVEL 31 MEQ/L (21-32); CHLORIDE LEVEL 107 MEQ/L (98-107); GLOMERULAR FILTRATION RATE > 60.0 (>39); GLUCOSE, FASTING 125 MG/DL (70-100); SODIUM LEVEL 143 MEQ/L (136-145)
[2019-09-17 06:39] LABS: ATYPICAL LYMPH 3 % (0-5); EOSINOPHILS 1 % (0-3); LYMPHOCYTES 19 % (16-44); MONOCYTES 5 % (0-5); MYELOCYTES 1 % (0-0); NEUTROPHILS 68 % (28-66)
[2019-09-17 06:40] LABS: PLATELET ESTIMATE NORMAL (NORMAL)
[2019-09-17] MEDS: SYMBICORT 160/4.5MCG INHALER 6GM INH SCH (07:44)
[2019-09-17] MEDS: ENOXAPARIN 40MG/0.4ML SYRINGE (J1650 PER 10MG) SC SCH (08:14)
[2019-09-17] MEDS: PARoxetine 20 MG TAB PO SCH (08:14)
[2019-09-17] MEDS: PREGABALIN 75 MG CAP(LYRICA) PO SCH (08:14)
[2019-09-17] MEDS: NYSTATIN 500,000 U/5 ML SUSP UDC SS SCH (08:14)
[2019-09-17] MEDS: HumaLOG INSULIN (NovoLOG) PER UNIT SC SCH ×2 (08:14→12:06)
[2019-09-17] MEDS: DOCUSATE SODIUM 100 MG CAP PO SCH (08:14)
[2019-09-17] MEDS: MONTELUKAST 10 MG TAB PO SCH (08:15)
[2019-09-17] MEDS: CETIRIZINE (ZyrTEC) 10 MG TAB PO SCH (08:15)
[2019-09-17] MEDS: predniSONE 20 MG TAB PO SCH (08:15)
[2019-09-17] MEDS: ASPIRIN 81 MG ENTERIC TAB PO SCH (08:15)
[2019-09-17 08:17] VITALS: BP 135/67
[2019-09-17] MEDS: BISOPROLOL FUM 2.5 MG PER 1/2TAB PO SCH (08:17)
[2019-09-17] MEDS: ACETAMINOPHEN TAB 650MG DOSE (2X325MG) PO PRN (08:28)
[2019-09-17] MEDS ORDERED: PRED5PAK2 PO (11:12)
[2019-09-17] MEDS ORDERED: NYST50SS SS (11:12)
[2019-09-17] MEDS ORDERED: PRED10TA2 PO (11:53)
--- NOTE | 2019-09-17 15:31 | DS.PDOC ---
Discharge Summary General Date of Admission Sep 12, 2019 at 16:32 Date of Discharge 09/17/2019 Discharge Summary PROCEDURES PERFORMED DURING STAY: [None]. ADMITTING DIAGNOSES: 1.Acute respiratory failure with hypoxia 2. COPD exacerbation 3. Diabetes with neuropathy 4. Allergies 5. hyperlipidemia 6. GERD 7. PPI 8. CAD s/p stents DISCHARGE DIAGNOSES: 1.Hypoxemic respiratory failure d/t COPD exacerbation, resolved. 2. COPD exacerbation, improved 3. Diabetes with neuropathy 4. Allergies, unspecified, likely environmental 5. Hyperlipidemia 6. GERD 7. CAD s/p stents 8. DONTE non-compliant with CPAP COMPLICATIONS/CHIEF COMPLAINT: Acute Respiratory Failure With Hypoxia. HISTORY OF PRESENT ILLNESS: Pt is a 68 year old female recently discharged from hospital on 09/11/19 after tx for COPD exacerbation readmitted d/t dyspnea and hypoxia. Pt reported dyspnea worsened overnight with wheezing. Reported unable to lay down as well, was mostly sitting up leaning forward. Dyspnea cont to worsen and the visiting Nurse visited her and found her pulse ox was in the 70, and pt subsequently presented to [facility] ED. HOSPITAL COURSE: In ED she was saturating at 79% in RA with RR 24. Pt received 4 neb treatments with mild improvement however continued to be hypoxic requiring oxygen supplementation. Pt was subsequently readmitted for acute respiratory failure with hypoxia. Pt was started on IV methylprednisolone and resp tx. Chest CT showed marked emphysematous changes; bronchiolar narrowing within what is most likely an atelectatic right middle lobe. Curbside consult with pulm was done by team and recommended outpt pulm follow up. Pt's resp status gradually improve overtime, and steroid therapy was gradually titrated down. On the day of discharge, she denies any dyspnea, chest pain, palpitation, fever, or chills. Reported that her pulse ox went down to low 80s while she walked. Patient was subsequently determined ready to be discharged with home oxygen on 2L oxygen and steroid taper. DISCHARGE MEDICATIONS: Please see below. ALLERGIES: Please see below. PHYSICAL EXAMINATION ON DISCHARGE: VITAL SIGNS: Please see below. GENERAL: Alert and awake, not in acute distress HEENT: Head normocephalic, atraumatic, mucosa moist and pink NECK: supple CARDIOVASCULAR EXAMINATION: S1, S2, no murmurs RESPIRATORY EXAMINATION: Good air entry b/l, no wheezing aus, decreased breath sounds b/l ABDOMINAL EXAMINATION: Soft, no tenderdness in all 4 quad, nondistended, positive bowel sounds aus in all 4 quad EXTREMITIES: moving all 4 extremities spontaneously SKIN: normal skin turgor and temp NEUROLOGICAL EXAMINATION: Alert and oriented 3, no focal deficits, memory and cognitive function grossly intact PSYCHIATRIC EXAMINATION: Calm and cooperative LABORATORY DATA: Please see below. IMAGING: Chest CT 09/14/2019 showed marked emphysematous changes; bronchiolar narrowing within what is most likely an atelectatic right middle lobe CXR 09/12/2019 showed stable chronic findings without evidence of superimposed acute infiltrate. PROGNOSIS: [Fair] ACTIVITY: [As tolerated]. DIET: low carb diet DISCHARGE PLAN AND INSTRUCTIONS: Follow up with PCP in 1 wk. Establish care with pulm. Use CPAP at night. Take medication as prescribed DISPOSITION: Home Health Service. ITEMS TO FOLLOWUP ON ON OUTPATIENT: 1. COPD exacerbation 2. Emphysema with questionable atelectatic right middle lobe DISCHARGE CONDITION: [Improved]. TIME SPENT ON DISCHARGE: Greater than [33] minutes. Vital Signs/I&Os Vital Signs Date Time Temp Pulse Resp B/P (MAP) Pulse Ox O2 Delivery O2 Flow Rate FiO2 09/17/19 10:40 92 Nasal Cannula 2.0 09/17/19 08:17 72 135/67 09/17/19 06:00 98.2 20 I&O- Last 24 Hours up to 6 AM 09/17/19 06:00 Intake Total 1530 ml Output Total 1600 ml Balance -70 ml Laboratory Data Labs 24H Laboratory Tests 2 09/16/19 17:04: Bedside Glucose (Misc Panel) 304H 09/16/19 20:24: Bedside Glucose (Misc Panel) 282H 09/17/19 05:41: Immature Granulocyte % (Auto) , Neutrophils (%) (Auto) , Nucleated Red Blood Cells % (auto) 0.0, Neutrophils 68H, Band Neutrophils 3, Lymphocytes (Manual) 19, Monocytes (Manual) 5, Eosinophils (Manual) 1, Myelocytes 1H, Atypical Lymphocytes 3, Red Blood Cell Morphology NORMAL, Platelet Estimate NORMAL, Anion Gap 5L, Glomerular Filtration Rate > 60.0, Calcium Level 8.1L 09/17/19 11:30: Bedside Glucose (Misc Panel) 206H CBC/BMP Laboratory Tests 09/17/19 05:41 FSBS Laboratory Tests Test 09/16/19 17:04 6/7/20 20:24 09/17/19 11:30 Range/Units Bedside Glucose (Misc Panel) 304 282 206 83-110 MG/DL Microbiology Microbiology 09/12/19 Blood Culture - Preliminary, Resulted No Growth after 72 hours. All specime... 09/12/19 Blood Culture - Final, Complete NO GROWTH AFTER 5 DAYS Discharge Medications Scheduled Aspirin (Aspirin EC) 81 Mg Tabec, 81 MG PO DAILY, (Reported) Atorvastatin Calcium (Atorvastatin Calcium) 80 Mg Tablet, 80 MG PO QHS, (Reported) Bisoprolol Fumarate (Bisoprolol Fumarate) 5 Mg Tab, 2.5 MG PO DAILY, (Reported) Budesonide/Formoterol (Symbicort 160-4.5 Mcg Inhaler) 60 Puff/Inhaler Aers, 2 PUFF INH BID, (Reported) Calcium Carbonate/Vitamin D3 (Calcium 500-Vit D3 200 Caplet) 1 Tab Tab, 1 TAB PO QHS, (Reported) Cetirizine HCl (Cetirizine HCl) 10 Mg Tablet, 10 MG PO DAILY, (Reported) Docusate Sodium (Docusate Sodium) 100 Mg Capsule, 100 MG PO BID, (Reported) Ezetimibe (Ezetimibe) 10 Mg Tablet, 10 MG PO QHS, (Reported) Levofloxacin (Levaquin) 500 Mg Tablet, 500 MG PO DAILY, (Reported) FOR 3 DAYS, FILLED 09/11/19 Metformin HCl (Metformin HCl ER) 500 Mg Tab.er.24h, 500 MG PO DAILY, (Reported) Montelukast Sodium (Montelukast Sodium) 10 Mg Tab, 10 MG PO DAILY, (Reported) Nystatin (Nystatin Oral Susp) 100,000 Unit/1 Ml Oral.susp, 5 ML SS BID Omeprazole (Omeprazole) 40 Mg Cap, 40 MG PO QHS, (Reported) Paroxetine HCl (Paroxetine HCl) 20 Mg Tab, 20 MG PO DAILY, (Reported) Prednisone (Prednisone) 10 Mg Tablet, 10 MG PO TAPER Take 4 tabs daily x 3 days, then 3 tabs daily x 3 days, then 2 tabs daily x 3 days, then 1 tab daily x 3 days and stop Pregabalin (Lyrica) 75 Mg Capsule, 75 MG PO BID, (Reported) Scheduled PRN Albuterol Sulf (Albuterol Sulfate) 2.5 Mg/3 Ml Nebu, 2.5 MG INH Q4H PRN for WHEEZING, (Reported) Albuterol Sulfate (Proair Hfa) 108 Mcg/Act Aer, 2 PUFF INH QID PRN for SHORTNESS OF BREATH, (Reported) Nitroglycerin (Nitroglycerin) 0.4 Mg Tab.subl, 0.4 MG SL NITRO PRN for CHEST P AIN, (Reported) Allergies Coded Allergies: vancomycin (Verified Allergy, Severe, N/V, ITCH, 09/12/19) Penicillins (Verified Allergy, Mild, RASH, 09/12/19) GME ATTESTATION GME ATTESTATION My faculty preceptor for this patient encounter was physically present during the encounter and was fully available. All aspects of the patient interview, examination, medical decision making process, and medical care plan development were reviewed and approved by the faculty preceptor. The faculty preceptor is aware and concurs with the plan as stated in the body of this note and will attest to such by his/her cosignature. ERICA GRIER DO Sep 17, 2019 15:31
== END 2019-09-17 15:02 | disposition home health service (06) | DRG 189 ==
LOC: M ED 14:53 → M ED INP 16:32 → ENRESERV 17:28 → M MSPAV 17:56
PROVIDERS: ADMIT Internal Medicine Nephrology; ATTEND Internal Medicine
DX: J96.01 Acute respiratory failure with hypoxia (principal); J44.1 Chronic obstructive pulmonary disease with (acute) exacerbation; J98.11 Atelectasis; E78.5 Hyperlipidemia, unspecified; K21.9 Gastro-esophageal reflux disease without esophagitis; I25.10 Atherosclerotic heart disease of native coronary artery without angina pectoris; Z95.2 Presence of prosthetic heart valve; E11.40 Type 2 diabetes mellitus with diabetic neuropathy, unspecified; G47.33 Obstructive sleep apnea (adult) (pediatric); Z91.19 Patient's noncompliance with other medical treatment and regimen; Z79.82 Long term (current) use of aspirin; Z79.899 Other long term (current) drug therapy; Z88.0 Allergy status to penicillin; Z96.642 Presence of left artificial hip joint; F17.200 Nicotine dependence, unspecified, uncomplicated

== ENCOUNTER → 2019-09-24 | Outpatient (CLI) | payer MEDICARE ==
[~2019-09-24] MED LIST changes: +AZIT-10 PO; +METF-839 PO; +NYST50SS SS; +PRED5PAK2 PO; +VITA500045 PO
[2019-09-24 16:15] LABS: CALCIUM LEVEL 8.9 MG/DL (8.8-10.2)
[2019-09-25 10:33] LABS: TOTAL 25(OH) VITAMIN D 26.8 NG/ML (30.0-100.0)
== END ==
LOC: M PLALAB 13:40
PROVIDERS: ATTEND Internal Medicine Endocrinology, Diabetes & Metabolism
DX: E55.9 Vitamin D deficiency, unspecified (principal)

== ENCOUNTER 2019-10-03 14:28 | Inpatient (IN) | payer MEDICARE ==
[~2019-10-03] VITALS: Ht 154.9 cm; Wt 64.6 kg
[~2019-10-03 14:28] MED LIST changes: -ALL10TAB29 PO; -AZIT-10 PO; +CETI-24 PO; -METF-839 PO; +MONT10TA10 PO; -MONT10TA4 PO; -VITA500045 PO
[2019-10-03 14:51] LABS: VENOUS BASE EXCESS -0.6 (-2.0-2.0); VENOUS HCO3 25.1 MEQ/L (23.0-27.0); VENOUS O2 SATURATION 67.6 % (60.0-80.0); VENOUS PARTIAL PRESSURE CO2 45.1 mmHg (38.0-50.0); VENOUS PARTIAL PRESSURE O2 38.2 mmHg (30.0-50.0); VENOUS PH 7.363 UNITS (7.330-7.430); VENOUS STANDARD HCO3 23.3 MEQ/L; VENOUS TOTAL CO2 26.5 MEQ/L (24.0-28.0)
[2019-10-03 14:56] LABS: BASO # 0.1 10^3/uL (0.0-0.2); BASO % 0.6 % (0.0-1.0); EOS # 0.4 10^3/uL (0.0-0.5); EOS % 4.1 % (0.0-3.0); HEMATOCRIT 38.3 % (36.0-47.0); HEMOGLOBIN 12.3 g/dl (12.0-15.5); LYMPH # 2.7 10^3/uL (1.5-5.0); LYMPH % 24.5 % (24.0-44.0); MEAN CORPUSCULAR HEMOGLOBIN 29.1 pg (27.0-33.0); MEAN CORPUSCULAR HGB CONC 32.1 g/dl (32.0-36.5); MEAN CORPUSCULAR VOLUME 90.5 fl (80.0-96.0); MONO % 9.6 % (0.0-5.0); NEUTROPHILS # 6.4 10^3/uL (1.5-8.5); NEUTROPHILS % 59.3 % (36.0-66.0); PLATELET COUNT, AUTOMATED 291 10^3/uL (150-450); RED BLOOD COUNT 4.23 10^6/uL (4.00-5.40); WHITE BLOOD COUNT 10.8 10^3/uL (4.0-10.0)
[2019-10-03 15:06] LABS: PROTHROMBIN TIME 12.9 SECONDS (11.8-14.0)
[2019-10-03 15:07] LABS: PARTIAL THROMBOPLASTIN TIME 25.8 SECONDS (25.0-38.4)
[2019-10-03] MEDS: COMBIVENT RESPIMAT 100-20MCG INHALER 4GM INH SCH ×3 (15:28→15:57)
[2019-10-03] MEDS ORDERED: dexameTHASONE 20MG/5ML VIAL (J1100 PER 1MG) IV ONE (15:30)
[2019-10-03 15:31] LABS: CALCIUM LEVEL 9.7 MG/DL (8.8-10.2); CREATININE FOR GFR 1.16 MG/DL (0.55-1.30); FREE T4 1.15 NG/DL (0.76-1.46); GLOMERULAR FILTRATION RATE 49.2 (>39); POTASSIUM SERUM 4.1 MEQ/L (3.5-5.1); THYROID STIMULATING HORMONE 1.37 uIU/ML (0.358-3.740)
[2019-10-03 17:48] VITALS: O2SAT 84
[2019-10-03] MEDS ORDERED: LevoFLOXacin IV 750 MG in IV 1 EA IV ONE (18:00)
[2019-10-03] MEDS ORDERED: METF-839 PO (18:32)
[2019-10-03] MEDS ORDERED: AZIT-10 PO (18:32)
[2019-10-03] MEDS ORDERED: VITA500045 PO (18:32)
[2019-10-03] MEDS ORDERED: NITROGLYCERIN 0.4 MG SUBL TABLET SL PRN (20:00)
[2019-10-03] MEDS ORDERED: DOCUSATE SODIUM 100MG CAPSULE PO PRN (20:00)
[2019-10-03] MEDS ORDERED: ALBUTEROL SULFATE 2.5 MG/0.5 ML INH NEB SOLN INH PRN (20:00)
[2019-10-03] MEDS ORDERED: ISOVUE-370 76% 100ML VIAL As Ordered ONE (20:04)
--- NOTE | 2019-10-03 20:19 | HPEPDOC ---
General Date of Admission 10/03/19 Date of Service: Oct 03, 2019 Chief Complaint The patient is a 68-year-old female admitted with a reason for visit of Chest Pain. Source: Patient Exam Limitations: No limitations Timing/Duration: Day(s) Severity: Moderate Associated Symptoms: Shortness of breath History of Present Illness Patient 68 years old female with past medical history of COPD, DONTE, chronic interstitial pulmonary fibrosis, coronary artery diseases status post stents placement in 2018 presented hospital with increased shortness of breath. Of note patient was recently treated in the hospital with COPD exacerbation, patient received treatment with nebulizers and levofloxacin. Patient stated that for past few days she has been having increased shortness of breath with cough associated with greenish sputum production. Patient denied any fever or chills. She stated that she quit smoking a few weeks ago. Also patient complain of chest pain, midsternal, 3/5, intermittent, w/o radiation. In ER patient was found to have acute hypoxemic respiratory failure with oxygen saturation around 84%. Chest x-ray showed chronic interstitial changes of both low lobe lungs bilaterally. There is question for increased opacities of RLL. Patient has mild leukocytosis of 10.8, increased LA of 2.2. EKG was done and did not show acute ischemic changes, troponin 0.01 Home Medications Scheduled Aspirin (Aspirin EC) 81 Mg Tabec, 81 MG PO DAILY, (Reported) Atorvastatin Calcium (Atorvastatin Calcium) 80 Mg Tablet, 80 MG PO QHS, (Reported) Azithromycin (Azithromycin) 250 Mg Tablet, 250 MG PO DAILY, (Reported) NEW MED PRESCRIBED 10/03/19 BY DAVID VILLANUEVA FOR COPD Bisoprolol Fumarate (Bisoprolol Fumarate) 5 Mg Tab, 2.5 MG PO DAILY, (Reported) Budesonide/Formoterol (Symbicort 160-4.5 Mcg Inhaler) 60 Puff/Inhaler Aers, 2 PUFF INH BID, (Reported) Calcium Carbonate/Vitamin D3 (Calcium 500-Vit D3 200 Caplet) 1 Tab Tab, 1 TAB PO DAILY, (Reported) Cetirizine HCl (Cetirizine HCl) 10 Mg Tablet, 10 MG PO DAILY, (Reported) Ergocalciferol (Vitamin D2) (Vitamin D2) 1,250 Mcg Capsule, 1,250 MCG PO QWEEK, (Reported) THURSDAYS Ezetimibe (Ezetimibe) 10 Mg Tablet, 10 MG PO QHS, (Reported) Metformin HCl (Metformin HCl) 500 Mg Tablet, 500 MG PO BID, (Reported) Montelukast Sodium (Montelukast Sodium) 10 Mg Tab, 10 MG PO DAILY, (Reported) Omeprazole (Omeprazole) 40 Mg Cap, 40 MG PO QHS, (Reported) Paroxetine HCl (Paroxetine HCl) 20 Mg Tab, 20 MG PO DAILY, (Reported) Pregabalin (Lyrica) 75 Mg Capsule, 75 MG PO BID, (Reported) Scheduled PRN Albuterol Sulf (Albuterol Sulfate) 2.5 Mg/3 Ml Nebu, 2.5 MG INH Q4H PRN for WHEEZING, (Reported) Albuterol Sulfate (Proair Hfa) 108 Mcg/Act Aer, 2 PUFF INH QID PRN for SHORTNESS OF BREATH, (Reported) Docusate Sodium (Docusate Sodium) 100 Mg Capsule, 100 MG PO BID PRN for CONSTIPATION, (Reported) Nitroglycerin (Nitroglycerin) 0.4 Mg Tab.subl, 0.4 MG SL NITRO PRN for CHEST PAIN, (Reported) Allergies Coded Allergies: vancomycin (Verified Allergy, Severe, N/V, ITCH, 09/12/19) Penicillins (Verified Allergy, Mild, RASH, 09/12/19) Past Medical History Medical History COPD DONTE does not have CPAP Active smoker / nicotine dependence DM2 with Neuropathy DLP COPD / Chronic interstitial pulmonary fibrosis CAD status post 2 stents (2018) GERD Periodic limb movement disorder Surgical History Left hip replacement, bilateral rotator cuff repair 4 times , ulnar nerve release on the right elbow Coppertone or release on right side, 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, hysterectomy, appendectomy, tonsillectomy Family History Cancer, Hypertension (both parents) Social History * Smoker: quit less than 1 year Alcohol: Denies Drugs: denies A-FIB/CHADSVASC A-FIB History Current/History of A-Fib/PAF?: No Current PO Anticoag Therapy: No Review of Systems Constitutional: Reports: Fatigue; Denies: Chills, Fever Eyes: Denies: Pain, Vision change ENT: Denies: Head Aches Skin: Denies: Rash, Lesions Pulmonary: Reports: Dyspnea, Cough Cardiovascular: Denies: Chest Pain, Palpitations Gastrointestinal: Denies: Nausea, Vomiting Genitourinary: Denies: Dysuria, Frequency Endocrine: Denies: Polydipsia, Polyphagia Musculoskeletal: Denies: Neck Pain Neurological: Denies: Weakness Psych: Reports: Mood Normal Physical Examination General Exam: Positive: Alert, Cooperative Eye Exam: Positive: PERRLA ENT Exam: Positive: Atraumatic Neck Exam: Positive: Supple; Negative: JVD Chest Exam: Positive: Rhonchi, Wheezing Heart Exam: Positive: Rate Normal Telemetry: Positive: No significant arrhythmia Abdomen Exam: Positive: Normal bowel sounds Extremity Exam: Negative: Clubbing, Cyanosis Skin Exam: Positive: Nl turgor and temperature Neuro Exam: Positive: Normal Gait, Cranial Nerves 3-12 NL Psych Exam: Positive: Mental status NL Vital Signs Vital Signs Date Time Temp Pulse Resp B/P (MAP) Pulse Ox O2 Delivery O2 Flow Rate FiO2 10/03/19 17:48 84 Nasal Cannula 10/03/19 15:22 76 108/53 (71) 10/03/19 14:29 98.7 23 Laboratory Data Labs 24H Laboratory Tests 2 10/03/19 14:42: Blood Gas Bicarbonate Standard 23.3, Venous Blood pH 7.363, Venous Blood Partial Pressure CO2 45.1, Venous Blood Partial Pressure O2 38.2, Venous Blood Total Carbon Dioxide 26.5, Venous Blood HCO3 25.1, Venous Blood Oxygen Saturation 67.6, Venous Blood Base Excess -0.6, Lactic Acid Level 2.2*H, Ammonia < 10 10/03/19 14:43: Prothrombin Time 12.9, Prothromb Time International Ratio 1.00, Activated Par tial Thromboplast Time 25.8 10/03/19 14:44: Immature Granulocyte % (Auto) 1.9, Neutrophils (%) (Auto) 59.3, Lymphocytes (%) (Auto) 24.5, Monocytes (%) (Auto) 9.6H, Eosinophils (%) (Auto) 4.1H, Basophils (%) (Auto) 0.6, Neutrophils # (Auto) 6.4, Lymphocytes # (Auto) 2.7, Monocytes # (Auto) 1.0H, Eosinophils # (Auto) 0.4, Basophils # (Auto) 0.1, Nucleated Red Blood Cells % (auto) 0.0, Anion Gap 9, Glomerular Filtration Rate 49.2, Calcium Level 9.7, LD-Uvq-H-Type Natriuretic Peptide 375H, Thyroid Stimulating Hormone (TSH) 1.370, Free Thyroxine 1.15 10/03/19 14:48: POC Troponin I (Misc) 0.01 CBC/BMP Laboratory Tests 10/03/19 14:44 Microbiology Microbiology 10/03/19 Blood Culture, Received Pending 10/03/19 Blood Culture, Received Pending Assessment/Plan Patient 68 years old female with past medical history of COPD, DONTE, chronic interstitial pulmonary fibrosis, coronary artery diseases status post stents placement in 2018 presented hospital with increased shortness of breath. Of note patient was recently treated in the hospital with COPD exacerbation, patient re ceived treatment with nebulizers and levofloxacin. Patient stated that for past few days she has been having increased shortness of breath with cough associated with greenish sputum production. Patient denied any fever or chills. She stated that she quit smoking a few weeks ago. In ER patient was found to have acute hypoxemic respiratory failure with oxygen saturation around 84%. Chest x-ray showed chronic interstitial changes of both low lobe lungs bilaterally. There is question for increased opacities of RLL. Patient has mild leukocytosis of 10.8, increased LA of 2.2. EKG was done and did not show acute ischemic changes, troponin 0.01 Problems (1) Acute respiratory failure with hypoxia Status: Acute Problem Text: Patient has advanced COPD superimposed with long history of smoking and interstitial pulmonary fibrosis Patient has been recently treated for COPD exacerbation, there is question if patient did stop smoking Continue oxygen therapy Consider pulmonology consult in the morning (2) Pneumonia Status: Acute Problem Text: Patient has been recently treated for COPD exacerbation with levofloxacin Patient has multiple risk factors including diabetes, frequent COPD exacerbation, previous use of steroids, previous recent hospitalizations I will proceed with chest CT I will start cefepime and levofloxacin Continue inhalers with IV steroids given severe bilateral wheezes Blood culture, sputum culture (3) Diabetes mellitus Status: Chronic Problem Text: Diabetes diet, Insulin sliding scale (4) Chest pain Status: Acute Problem Text: Resolved when I saw patient EKG negative for acute ischemic changes Troponin negative Continue to monitor Telemetry Plan / VTE VTE Prophylaxis Ordered?: Yes CASSIE LIRA DO Oct 03, 2019 20:19
[2019-10-03] MEDS ORDERED: CEFEPIME HCL 2 GM in D5W MINI-BAG PLUS 50 ML IV ONE (20:30)
[2019-10-03] MEDS ORDERED: GLUCAGON INJ 1MG VIAL SC PRN (20:30)
[2019-10-03] MEDS ORDERED: GLUCOSE 4GM CHEW TABLET PO PRN (20:30)
[2019-10-03] MEDS ORDERED: DEXTROSE 50% 50 ML SYRINGE IV PRN (20:30)
--- NOTE | 2019-10-03 20:36 | ECGEPIP ---
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
--- NOTE | 2019-10-03 20:52 | REPVR ---
PROCEDURE INFORMATION: Exam: CT Chest With Contrast Exam date and time: 10/03/2019 8:19 PM Age: 68 years old Clinical indication: Chest pain; Additional info: Pneumonia TECHNIQUE: Imaging protocol: Computed tomography of the chest with intravenous contrast. 3D rendering: MIP and/or 3D reconstructed images were created by the technologist. Radiation optimization: All CT scans at this facility use at least one of these dose optimization techniques: automated exposure control; mA and/or kV adjustment per patient size (includes targeted exams where dose is matched to clinical indication); or iterative reconstruction. Contrast material: ISO 370; Contrast volume: 75 ml; Contrast route: INTRAVENOUS (IV); COMPARISON: CT Chest without contrast 09/14/2019 9:29 AM FINDINGS: Lungs: Marked bilateral centrilobular and paraseptal emphysema most pronounced in the mid and upper lung zones. Interstitial infiltrate demonstrated in the right lower lobe not present on 09/14/2019. Bibasilar atelectasis. Well inflated lungs consistent with COPD. Pleural space: Unremarkable. No pneumothorax. No pleural effusion. Heart: There is moderate atherosclerotic calcification of the coronary arteries. Aorta: The aorta demonstrates mild atherosclerotic calcification. Lymph nodes: Unremarkable. No enlarged lymph nodes. Bones/joints: The spine demonstrates mild degenerative changes. Shallow dextroscoliosis. Stable wedge compression deformity at T5 and minimally at T6. Soft tissues: Unremarkable. IMPRESSION: 1. Marked bilateral centrilobular and paraseptal emphysema most pronounced in the mid and upper lung zones. 2. Interstitial infiltrate demonstrated in the right lower lobe not present on 09/14/2019. 3. Well inflated lungs consistent with COPD. Electronically signed by: Derick Agosto On 10/03/2019 20:52:24 PM
[2019-10-03] MEDS: OMEPRAZOLE 20 MG CAP PO SCH (21:00)
[2019-10-03] MEDS: HumaLOG INSULIN (NovoLOG) PER UNIT SC SCH (21:00)
[2019-10-03] MEDS: methylPREDNISolone 40MG 1ML VIAL IV SCH (21:28)
[2019-10-03 22:47] VITALS: BP 121/60
[2019-10-03] MEDS: ATORVASTATIN 20 MG TAB PO SCH (23:08)
[2019-10-03] MEDS: PREGABALIN 75 MG CAP(LYRICA) PO SCH (23:08)
[2019-10-03] MEDS: EZETIMIBE 10 MG TAB (ZETIA) PO SCH (23:09)
--- NOTE | 2019-10-04 00:41 | REP ---
CHEST, SINGLE VIEW: Single view of the chest is performed and compared to prior study of 09/12/2019. There is infiltrate in the right lower lobe. There is underlying bibasilar fibrosis. Heart is normal in size. There is calcification of the thoracic aorta. The mediastinal silhouette is unchanged. IMPRESSION: Right lower lobe infiltrate. Electronically Signed by Sabas Sanchez MD 10/04/2019 09:49 A
[2019-10-04] MEDS: CEFEPIME HCL 2 GM in D5W MINI-BAG PLUS 50 ML IV SCH ×3 (04:09→21:24)
[2019-10-04] MEDS: methylPREDNISolone 40MG 1ML VIAL IV SCH ×4 (04:09→21:26)
[2019-10-04 06:00] VITALS: BP 118/58
[2019-10-04 07:01] LABS: HEMATOCRIT 31.7 % (36.0-47.0); HEMOGLOBIN 10.4 g/dl (12.0-15.5); MEAN CORPUSCULAR HEMOGLOBIN 29.3 pg (27.0-33.0); MEAN CORPUSCULAR HGB CONC 32.8 g/dl (32.0-36.5); MEAN CORPUSCULAR VOLUME 89.3 fl (80.0-96.0); PLATELET COUNT, AUTOMATED 250 10^3/uL (150-450); RED BLOOD COUNT 3.55 10^6/uL (4.00-5.40); WHITE BLOOD COUNT 5.2 10^3/uL (4.0-10.0)
[2019-10-04 07:19] LABS: CALCIUM LEVEL 8.9 MG/DL (8.8-10.2); CREATININE FOR GFR 1.23 MG/DL (0.55-1.30); MAGNESIUM LEVEL 1.9 MG/DL (1.8-2.4); POTASSIUM SERUM 4.2 MEQ/L (3.5-5.1)
[2019-10-04] MEDS: SYMBICORT 160/4.5MCG INHALER 6GM INH SCH ×2 (08:38→19:41)
[2019-10-04] MEDS: MONTELUKAST 10 MG TAB PO SCH (08:50)
[2019-10-04] MEDS: LACTOBACILLUS ACIDOPHILUS CAP (BACID) PO SCH ×4 (08:50→21:24)
[2019-10-04] MEDS: ASPIRIN 81 MG ENTERIC TAB PO SCH (08:50)
[2019-10-04] MEDS: PARoxetine 20MG TABLET PO SCH (08:50)
[2019-10-04] MEDS: CETIRIZINE (ZyrTEC) 10 MG TAB PO SCH (08:50)
[2019-10-04] MEDS: PREGABALIN 75 MG CAP(LYRICA) PO SCH ×2 (08:50→21:25)
[2019-10-04] MEDS: CALCIUM/VITAMIN D 500 MG TAB PO SCH (08:50)
[2019-10-04] MEDS: HEPARIN SOD (PORCINE) 5000UNITS/ML 1ML VIAL/SYRINGE SC SCH ×2 (08:51→21:00)
[2019-10-04] MEDS: HumaLOG INSULIN (NovoLOG) PER UNIT SC SCH ×4 (08:51→21:00)
[2019-10-04] MEDS: BISOPROLOL FUM 2.5 MG PER 1/2TAB PO SCH (08:53)
[2019-10-04 14:00] VITALS: BP 128/64
--- NOTE | 2019-10-04 17:18 | IPN ---
DATE: 10/04/2019 The patient is still dyspneic, had a thick productive cough late last night, sent for sputum culture. No chest pain, pressure or tightness. She says that she usually sees Dr. Linares and had seen her about two years ago. She had been lost to followup as she did not want to be told that her lungs were "bad" every time she goes to her doctor visits. The patient is open now to being managed by pulmonary associated but has been waiting for a call from their office to schedule an appointment. Overnight, the patient had no chest pain, pressure or tightness, lightheadedness or dizziness. No nausea or vomiting. No other issues per nursing. Temperature 98.5, pulse 75, respiratory rate 16, blood pressure 118/58, 94% on three liters nasal cannula. GENERAL: The patient has mild respiratory muscle use, about 5-6 word conversational dyspnea. No cyanosis. No tracheal deviation. She has nasal cannula on. LUNGS: Diminished. HEART: S1, S2, sinus rhythm. ABDOMEN: Soft, nontender, nondistended. EXTREMITIES: No pitting edema. LABORATORY DATA: White count 5, hemoglobin 10, hematocrit 31, platelet count 250. Sodium 133, potassium 4.2, chloride 104, bicarbonate 23, BUN 21, creatinine 1.23, glucose of 204. Urine 3+ glucose. Lactic acid repeated is 1.9. ASSESSMENT AND PLAN: This is a 68-year-old diabetic, chronic home oxygen-dependent, end-stage chronic obstructive pulmonary disease (COPD) with pulmonary fibrosis, recently admitted for similar issues, treated with steroids, discharged home on antibiotics and prednisone, represents with worsening shortness of breath, was found to be saturating around 84%. Chest x-ray showed bilateral lower lobe interstitial changes and questionable right lower lobe opacity with lactic acidosis of 2.2. IMPRESSION: 1. Right lower lobe pneumonia. Currently on Levaquin and cefepime due to recent hospitalization to cover for possible Pseudomonas. Check methicillin-resistant Staphylococcus aureus (MRSA) screen. Once sputum culture has been finalized, we will discontinue and deescalate antibiotics. 2. Chronic obstructive pulmonary disease (COPD) exacerbation in the setting of pulmonary fibrosis. Currently on IV Solu-Medrol, nebulizer treatments, and antibiotics. The patient sees Dr. Linares as outpatient. She has not been to their office in the past two years. We will see if inpatient pulmonology can decide on any changes in her medications. Per the patient, Anoro Ellipta worked well for her but insurance would not cover. We will ask pulmonary to see if alternative medications would be sufficient. 3. Possible cor pulmonale and pulmonary hypertension. Currently with elevated brain natriuretic peptide (BNP) of 992. We will obtain an echocardiogram and gentle diuresis. 4. Type 2 diabetes. Continue on consistent-carbohydrate diet, fingersticks, and sliding scale and check A1c. Check lipid panel as well. JULIAN
[2019-10-04] MEDS: ATORVASTATIN 20 MG TAB PO SCH (21:24)
[2019-10-04] MEDS: OMEPRAZOLE 20 MG CAP PO SCH (21:25)
[2019-10-04] MEDS: EZETIMIBE 10 MG TAB (ZETIA) PO SCH (21:25)
[2019-10-04 22:00] VITALS: BP 124/48
[2019-10-05] MEDS: methylPREDNISolone 40MG 1ML VIAL IV SCH ×2 (04:08→09:12)
[2019-10-05] MEDS: CEFEPIME HCL 2 GM in D5W MINI-BAG PLUS 50 ML IV SCH ×3 (04:09→20:37)
[2019-10-05 06:00] VITALS: BP 137/71
[2019-10-05 06:23] LABS: HEMATOCRIT 31.9 % (36.0-47.0); HEMOGLOBIN 10.2 g/dl (12.0-15.5); MEAN CORPUSCULAR HEMOGLOBIN 29.2 pg (27.0-33.0); MEAN CORPUSCULAR VOLUME 91.4 fl (80.0-96.0); PLATELET COUNT, AUTOMATED 279 10^3/uL (150-450); RED BLOOD COUNT 3.49 10^6/uL (4.00-5.40); WHITE BLOOD COUNT 12.5 10^3/uL (4.0-10.0)
[2019-10-05 06:43] LABS: CALCIUM LEVEL 8.5 MG/DL (8.8-10.2); CHOLESTEROL RISK RATIO 2.29 (<5); CREATININE FOR GFR 1.01 MG/DL (0.55-1.30); GLOMERULAR FILTRATION RATE 57.7 (>39); POTASSIUM SERUM 4.8 MEQ/L (3.5-5.1)
[2019-10-05] MEDS: SYMBICORT 160/4.5MCG INHALER 6GM INH SCH ×2 (07:28→20:12)
[2019-10-05] MEDS: PARoxetine 20MG TABLET PO SCH (08:43)
[2019-10-05] MEDS: HumaLOG INSULIN (NovoLOG) PER UNIT SC SCH ×4 (08:43→21:11)
[2019-10-05] MEDS: BISOPROLOL FUM 2.5 MG PER 1/2TAB PO SCH (08:43)
[2019-10-05] MEDS: LACTOBACILLUS ACIDOPHILUS CAP (BACID) PO SCH ×4 (08:43→20:38)
[2019-10-05] MEDS: CETIRIZINE (ZyrTEC) 10 MG TAB PO SCH (08:43)
[2019-10-05] MEDS: PREGABALIN 75 MG CAP(LYRICA) PO SCH ×2 (08:43→20:38)
[2019-10-05] MEDS: ASPIRIN 81 MG ENTERIC TAB PO SCH (08:43)
[2019-10-05] MEDS: CALCIUM/VITAMIN D 500 MG TAB PO SCH (08:43)
[2019-10-05] MEDS: HEPARIN SOD (PORCINE) 5000UNITS/ML 1ML VIAL/SYRINGE SC SCH ×2 (08:44→20:37)
[2019-10-05] MEDS: MONTELUKAST 10 MG TAB PO SCH (08:44)
[2019-10-05] MEDS: metFORMIN (GLUCOPHAGE) 500MG TAB PO SCH ×2 (10:31→17:54)
[2019-10-05] MEDS: predniSONE 20 MG TAB PO SCH ×2 (10:31→20:38)
[2019-10-05 14:00] VITALS: BP 128/60
[2019-10-05] MEDS: FLUCONAZOLE 50MG TABLET PO SCH (14:11)
[2019-10-05] MEDS ORDERED: LevoFLOXacin IV 750 MG in IV 1 EA IV SCH (18:00)
[2019-10-05] MEDS: OMEPRAZOLE 20 MG CAP PO SCH (20:37)
[2019-10-05] MEDS: EZETIMIBE 10 MG TAB (ZETIA) PO SCH (20:38)
[2019-10-05] MEDS: ATORVASTATIN 20 MG TAB PO SCH (20:38)
[2019-10-05] MEDS ORDERED: MICONAZOLE-7 VAGINAL 2% CREAM 47.7 GM PV SCH (21:00)
[2019-10-05 22:00] VITALS: BP 116/58
[2019-10-06] MEDS: CEFEPIME HCL 2 GM in D5W MINI-BAG PLUS 50 ML IV SCH (04:42)
[2019-10-06 06:00] VITALS: BP 141/76
[2019-10-06 06:08] LABS: HEMATOCRIT 31.9 % (36.0-47.0); HEMOGLOBIN 10.3 g/dl (12.0-15.5); MEAN CORPUSCULAR HEMOGLOBIN 29.4 pg (27.0-33.0); MEAN CORPUSCULAR HGB CONC 32.3 g/dl (32.0-36.5); MEAN CORPUSCULAR VOLUME 91.1 fl (80.0-96.0); PLATELET COUNT, AUTOMATED 287 10^3/uL (150-450); WHITE BLOOD COUNT 11.1 10^3/uL (4.0-10.0)
[2019-10-06 06:24] LABS: CALCIUM LEVEL 8.6 MG/DL (8.8-10.2); CREATININE FOR GFR 1.03 MG/DL (0.55-1.30); GLOMERULAR FILTRATION RATE 56.4 (>39); POTASSIUM SERUM 4.6 MEQ/L (3.5-5.1)
[2019-10-06] MEDS: SYMBICORT 160/4.5MCG INHALER 6GM INH SCH (07:33)
[2019-10-06] MEDS: HumaLOG INSULIN (NovoLOG) PER UNIT SC SCH (08:18)
[2019-10-06] MEDS: HEPARIN SOD (PORCINE) 5000UNITS/ML 1ML VIAL/SYRINGE SC SCH (08:18)
[2019-10-06] MEDS: LACTOBACILLUS ACIDOPHILUS CAP (BACID) PO SCH (08:19)
[2019-10-06] MEDS: FLUCONAZOLE 50MG TABLET PO SCH (08:19)
[2019-10-06] MEDS: PARoxetine 20MG TABLET PO SCH (08:19)
[2019-10-06] MEDS: predniSONE 20 MG TAB PO SCH (08:19)
[2019-10-06 08:20] VITALS: BP 135/74
[2019-10-06] MEDS: BISOPROLOL FUM 2.5 MG PER 1/2TAB PO SCH (08:20)
[2019-10-06] MEDS: PREGABALIN 75 MG CAP(LYRICA) PO SCH (08:20)
[2019-10-06] MEDS: ASPIRIN 81 MG ENTERIC TAB PO SCH (08:20)
[2019-10-06] MEDS: MONTELUKAST 10 MG TAB PO SCH (08:20)
[2019-10-06] MEDS: CETIRIZINE (ZyrTEC) 10 MG TAB PO SCH (08:20)
[2019-10-06] MEDS: CALCIUM/VITAMIN D 500 MG TAB PO SCH (08:20)
[2019-10-06] MEDS: metFORMIN (GLUCOPHAGE) 500MG TAB PO SCH (08:21)
[2019-10-06] MEDS ORDERED: LEVA750T7 PO (08:39)
[2019-10-06] MEDS ORDERED: DIFL50TA PO (08:39)
[2019-10-06] MEDS ORDERED: RISATAB3 PO (08:39)
[2019-10-06] MEDS ORDERED: PRED10TA2 PO (08:39)
[2019-10-06] MEDS ORDERED: CEPACOL LOZENGE PO PRN (08:45)
[2019-10-06] MEDS ORDERED: SIMETHICONE 80MG CHEW TAB PO PRN (08:45)
--- NOTE | 2019-10-06 09:03 | IPN ---
DATE: 10/05/2019 Patient says that she was short of breath yesterday, desaturated to about 84% when she was working with physical therapy. No cough, no fever or chills. Temperature 98.6, pulse 79, respiratory rate 17, blood pressure 137/71, 96% on three liters nasal cannula. Generally, patient is awake, alert, oriented times three, no conversational dyspnea. No jugular venous distention (JVD) or thyromegaly. Moist mucous membranes. Lungs are clear to auscultation. No wheezing or rales. Heart: S1, S2, sinus rhythm. Abdomen is soft, nontender, nondistended. Extremities: No pitting edema. LABORATORY DATA: CBC, metabolic panel have been reviewed. A1c is 8.0. Lactic acid is 1.9. Cholesterol level within normal. ASSESSMENT AND PLAN: This is a 68-year-old female with a history of diabetes, home oxygen as needed, end-stage chronic obstructive pulmonary disease (COPD) with pulmonary fibrosis, previously discharged for COPD exacerbation, now presents with a right lower lobe pneumonia, lactic acidosis and persistent hypoxia, oxygen saturation of 84% on room air, now requiring supplemental oxygen. IMPRESSION: 1. Right lower lobe pneumonia: On Levaquin and cefepime to cover for Pseudomonas due to recent hospitalization. Awaiting sputum culture/sensitivity results, and de-escalate antibiotics once available. Blood cultures have remained negative. 2. COPD exacerbation: Doing well. Transition to prednisone today. Discontinue IV Solu-Medrol. Continue on nebulizer treatments and continue on Symbicort. Currently on antibiotics. 3. Depression: On Paxil. 4. Chronic neuropathy and chronic pain: On Lyrica. 5. Dyslipidemia: On Lipitor. 6. Reflux: On Prilosec. 7. Vitamin D deficiency: On Os-Eduard D. 8. Allergic rhinitis: On Zyrtec and Singulair. 9. History of heart disease and stents: On aspirin, bisoprolol. 10. Type 2 diabetes. A1c of 8, resumed on home dose of metformin. MTDD
--- NOTE | 2019-10-06 13:26 | DS.PDOC ---
Discharge Summary General Date of Admission Oct 03, 2019 at 19:49 Date of Discharge OCTOBER 06, 2019 Discharge Summary DISCHARGE DIAGNOSES: Acute hypoxic respiratory failure Right lower lobe pneumonia Acute COPD Exacerbation Yeast in Sputum Pulmonary Fibrosis Depression: On Paxil. Chronic neuropathy and chronic pain Dyslipidemia Reflux Vitamin D deficiency Allergic rhinitis Coronary Artery Disease s/p stents Type 2 diabetes with steroid-induced hyperglycemia a1c 8. candidiasis Vaginal Yeast Infection DISCHARGE MEDICATIONS: PLS SEE BELOW DISCHARGE INSTRUCTIONS: WINDY sierra in 1-2 wks, pcp within 7days HOSPITAL COURSE: This is a 68-year-old female with a history of diabetes, home oxygen as needed, chronic obstructive pulmonary disease (COPD) with pulmonary fibrosis, previously discharged for COPD exacerbation, now presents with a worsening respiratory distress, and found on CT chest to have a new right lower lobe pneumonia, lactic acidosis and persistent hypoxia, oxygen saturation of 84% on room air, now requiring supplemental oxygen continuously. No change in weight and PND despite having elevated BNP. Right lower lobe pneumonia: started on Levaquin and cefepime to cover for Pseudomonas due to recent hospitalization. Yeast on sputum culture/sensitivity results, and de-escalate to oral levaquin. Blood cultures have remained negative.Diflucan for yeast. Acute hypoxic respiratory failure on 2liters NC at all times now. Previously only as needed at night. due to RLL PNA and acute COPD exacerbation. Supportive care with antibiotics, steroids, supplemental oxygen. Acute COPD exacerbation in the setting of chronic pulmonary fibrosis: Doing well. Transition to prednisone after stabilized on IV Solu-Medrol and nebulizer treatments and continue on Symbicort. Pt previously followed with Dr. Linares but refused f/u in the past 2years because she doesn't like "hearing bad news." Discussed case with Dr. Sierra who can see her in 1-2 wks, and recommended air conditioning and continuing breo-ellipta if her prescription plan covers it. Depression: On Paxil. Chronic neuropathy and chronic pain: On Lyrica. Dyslipidemia: On Lipitor. Reflux: On Prilosec. Vitamin D deficiency: On Os-Eduard D. Allergic rhinitis: On Zyrtec and Singulair. History of heart disease and stents: On aspirin, bisoprolol. Type 2 diabetes. A1c of 8, resumed on home dose of metformin. PCP to titrate oral hypoglycemics to goal. consistent carbs DISCHARGE PHYSICAL EXAMINATION: VITALS: pls see below Generally, patient is awake, alert, oriented times three, no conversational dyspnea. No jugular venous distention (JVD) or thyromegaly. Moist mucous membranes. Lungs are clear to auscultation. No wheezing or rales. Heart: S1, S2, sinus rhythm. Abdomen is soft, nontender, nondistended. Extremities: No pitting edema. DISCHARGE LABORATORY DATA, IMAGING STUDIES: PLS SEE BELOW TIME SPENT ONDISCHARGE: 30 MIN Vital Signs/I&Os Vital Signs Date Time Temp Pulse Resp B/P (MAP) Pulse Ox O2 Delivery O2 Flow Rate FiO2 10/06/19 08:20 72 135/74 10/06/19 06:00 98.6 18 94 Nasal Cannula 3.0 I&O- Last 24 Hours up to 6 AM 10/06/19 06:00 Intake Total 1150 ml Output Total 1480 ml Balance -330 ml Laboratory Data Labs 24H Laboratory Tests 2 10/05/19 16:29: Bedside Glucose (Misc Panel) 247H 10/05/19 20:57: Bedside Glucose (Misc Panel) 255H 10/06/19 05:44: Nucleated Red Blood Cells % (auto) 0.0, Anion Gap 3L, Glomerular Filtration Rate 56.4, Calcium Level 8.6L CBC/BMP Laboratory Tests 10/06/19 05:44 FSBS Laboratory Tests Test 10/05/19 16:29 10/05/19 20:57 Range/Units Bedside Glucose (Misc Panel) 247 255 83-110 MG/DL Microbiology Microbiology 10/04/19 Gram Stain - Final, Complete 10/04/19 Sputum Culture - Final, Complete Yeast Like Organism 10/03/19 Blood Culture - Preliminary, Resulted No Growth after 48 hours. All Specime... 10/03/19 Blood Culture - Preliminary, Resulted No Growth after 48 hours. All Specime... 10/03/19 Blood Culture - Preliminary, Resulted No Growth after 48 hours. All Specime... Discharge Medications Scheduled Aspirin (Aspirin EC) 81 Mg Tabec, 81 MG PO DAILY, (Reported) Atorvastatin Calcium (Atorvastatin Calcium) 80 Mg Tablet, 80 MG PO QHS, (R eported) Azithromycin (Azithromycin) 250 Mg Tablet, 250 MG PO DAILY, (Reported) NEW MED PRESCRIBED 10/03/19 BY DAVID VILLANUEVA FOR COPD Bisoprolol Fumarate (Bisoprolol Fumarate) 5 Mg Tab, 2.5 MG PO DAILY, (Reported) Budesonide/Formoterol (Symbicort 160-4.5 Mcg Inhaler) 60 Puff/Inhaler Aers, 2 PUFF INH BID, (Reported) Calcium Carbonate/Vitamin D3 (Calcium 500-Vit D3 200 Caplet) 1 Tab Tab, 1 TAB PO DAILY, (Reported) Cetirizine HCl (Cetirizine HCl) 10 Mg Tablet, 10 MG PO DAILY, (Reported) Ergocalciferol (Vitamin D2) (Vitamin D2) 1,250 Mcg Capsule, 1,250 MCG PO QWEEK, (Reported) THURSDAYS Ezetimibe (Ezetimibe) 10 Mg Tablet, 10 MG PO QHS, (Reported) Fluconazole (Diflucan) 50 Mg Tablet, 100 MG PO DAILY L.acidoph/L.bulg/B.bif/S.therm (Pati-Bid Caplet) 1 Each Tablet, 1 EA PO BIDWM Levofloxacin (Levaquin) 750 Mg Tablet, 750 MG PO Q48H Metformin HCl (Metformin HCl) 500 Mg Tablet, 500 MG PO BID, (Reported) Montelukast Sodium (Montelukast Sodium) 10 Mg Tab, 10 MG PO DAILY, (Reported) Omeprazole (Omeprazole) 40 Mg Cap, 40 MG PO QHS, (Reported) Paroxetine HCl (Paroxetine HCl) 20 Mg Tab, 20 MG PO DAILY, (Reported) Prednisone (Prednisone) 10 Mg Tablet, 10 MG PO TAPER Take 4 tabs daily x 3 days, then 3 tabs daily x 3 days, then 2 tabs daily x 3 days, then 1 tab daily x 3 days and stop Pregabalin (Lyrica) 75 Mg Capsule, 75 MG PO BID, (Reported) Scheduled PRN Albuterol Sulf (Albuterol Sulfate) 2.5 Mg/3 Ml Nebu, 2.5 MG INH Q4H PRN for WHEEZING, (Reported) Albuterol Sulfate (Proair Hfa) 108 Mcg/Act Aer, 2 PUFF INH QID PRN for SHORTNESS OF BREATH, (Reported) Docusate Sodium (Docusate Sodium) 100 Mg Capsule, 100 MG PO BID PRN for CONSTIPATION, (Reported) Nitroglycerin (Nitroglycerin) 0.4 Mg Tab.subl, 0.4 MG SL NITRO PRN for CHEST PAIN, (Reported) Allergies Coded Allergies: vancomycin (Verified Allergy, Severe, N/V, ITCH, 09/12/19) Penicillins (Verified Allergy, Mild, RASH, 09/12/19) LOKESH WARREN MD Oct 06, 2019 13:26
[2019-10-10 17:07] LABS: BODY FLUID CULTURE Not indicated. (.); LEGIONELLA ANTIGEN URINE Negative (Negative); ORGANISM ID Not indicated. (.); SPECIMEN SOURCE Urine (.); URINE STREP PNEUMONIAE ANTIGEN Negative (Negative)
[2020-03-25] MEDS ORDERED: SPIR1AER INH (11:03)
[2020-03-25] MEDS ORDERED: NITR100C2 PO (11:03)
[2020-03-25] MEDS ORDERED: PROL60SO SC (11:03)
[2020-03-25] MEDS ORDERED: DYMI137S NARES (11:03)
[2020-03-25] MEDS ORDERED: D-3-50003 PO (11:03)
[2020-03-25] MEDS ORDERED: COMBAER6 INH (11:03)
== END 2019-10-06 12:01 | disposition home or self-care (01) | DRG 193 ==
LOC: M ED 14:28 → M ED INP 19:49 → ENRESERV 21:12 → M MSPAV 22:47
PROVIDERS: ADMIT Internal Medicine; ATTEND General Practice
DX: J18.9 Pneumonia, unspecified organism (principal); J96.01 Acute respiratory failure with hypoxia; J44.0 Chronic obstructive pulmonary disease with (acute) lower respiratory infection; J44.1 Chronic obstructive pulmonary disease with (acute) exacerbation; E87.2 Acidosis; J84.10 Pulmonary fibrosis, unspecified; E55.9 Vitamin D deficiency, unspecified; K21.9 Gastro-esophageal reflux disease without esophagitis; F32.9 Major depressive disorder, single episode, unspecified; E78.5 Hyperlipidemia, unspecified; I25.10 Atherosclerotic heart disease of native coronary artery without angina pectoris; Z95.2 Presence of prosthetic heart valve; E11.65 Type 2 diabetes mellitus with hyperglycemia; B37.3 Candidiasis of vulva and vagina; E11.40 Type 2 diabetes mellitus with diabetic neuropathy, unspecified; Z79.82 Long term (current) use of aspirin; Z79.899 Other long term (current) drug therapy; Z88.0 Allergy status to penicillin; Z88.1 Allergy status to other antibiotic agents; G47.33 Obstructive sleep apnea (adult) (pediatric)

== ENCOUNTER → 2019-10-18 | Outpatient (CLI) | payer MEDICARE ==
[~2019-10-18] MED LIST changes: +AZIT-10 PO; +DIFL50TA PO; +METF-839 PO; -MONT10TA10 PO; +MONT10TA4 PO; +RISATAB3 PO; +VITA500045 PO
== END ==
LOC: M PLALAB 15:07
PROVIDERS: ATTEND Internal Medicine Endocrinology, Diabetes & Metabolism
DX: M81.0 Age-related osteoporosis without current pathological fracture (principal)

== ENCOUNTER → 2019-10-30 | Outpatient (REF) | payer MEDICARE | LOC: M LAB REF 17:36 | PROVIDERS: ATTEND Internal Medicine Pulmonary Disease | DX: J44.9 Chronic obstructive pulmonary disease, unspecified (principal); R05 Cough ==

== ENCOUNTER → 2019-11-06 | Outpatient (CLI) | payer MEDICARE ==
--- NOTE | 2019-12-24 07:59 | SLEEPCENT ---
DATE: 11/06/2019 ORDERED BY: Dr. Suarez Nocturnal polysomnography was performed for the titration of pressure therapy in this patient with obstructive sleep apnea syndrome. For testing, the patient was fit with a ResMed AirFit F20 full-face mask of small size. There was 5 cm water pressure applied to the circuit, and the lights were extinguished. There was 7 hours and 38 minutes of data reviewed. There were 386.5 minutes of sleep identified. Sleep latency was normal at 34.5 minutes. REM latency was prolonged at 174.5 minutes. Sleep architecture improved over the course of study. There were two REM cycles appreciated. Overall, sleep efficiency was 85.3%. The electrocardiogram showed a sinus rhythm with an average heart rate of 70 beats per minute. EEG showed normal waveforms for wake and sleep. A persistence of respiratory events prompted the increase in CPAP from 5 to the optimal pressure of 13. Despite optimal CPAP pressure, oxygen desaturations were encountered, prompting the addition of supplemental oxygen to the circuit. Best sleep was seen on a CPAP level of 13 with 6 liters of oxygen bled into the system. Some activity was also noted in the limb leads during this study. Limb movement arousal index was 2.8. IMPRESSION: Obstructive sleep apnea syndrome (G47.33). RECOMMENDATION: Nightly use of CPAP, 13 cm of water pressure. Addition of supplemental oxygen at 6 liters per minute will allow for the preservation of adequate oxygen saturations. cc: Lily Fields M.D. DD: / / /htssa MTDD
== END ==
LOC: M SLEEP 20:00
PROVIDERS: ATTEND Internal Medicine Pulmonary Disease
DX: G47.33 Obstructive sleep apnea (adult) (pediatric) (principal)

== ENCOUNTER → 2019-11-29 | Outpatient (CLI) | payer MEDICARE ==
--- NOTE | 2020-01-04 10:07 | REP ---
TWO-VIEW CHEST COMPARISON: Multiple, the latest portable examination of 10/03/2019 obtained at 0305 pm, which showed a right lower lobe patchy opacity consistent with pneumonia. FINDINGS: Todays examination show basilar fibrotic change, which when compared to an older examination of 03/06/2018 a PA view of the chest obtained as part of an abdominal series, have increased. The patchy appearing opacity in the right lung lower lobe compared to the latest prior exam of 10/03/2019 has significantly improved, if not completely resolved. The pleural angles are sharp. The heart is not enlarged. There are emphysematous changes with parenchyma bullae and lung field hyperexpansion status quo. The cardiomediastinal silhouette is stable. The heart is not enlarged. The osseous structures are unchanged. Multiple grade 1 and 2 thoracic spine compression deformities are noted. IMPRESSION: Likely chronic lung field changes with resolution of previously present right lower lobe pneumonia. If clinically relevant, consider chest CT due to the chronic lung field changes and so as acute disease is not seen superimposed over chronic changes. It should be stated that the prior CT of the chest of 10/03/2019 was reviewed at this time and that examination showed chronic lung field changes particularly in the right lower lobe. Follow-up CT to compare to that examination may be warranted. [facility]
== END ==
LOC: M WUC 16:14
PROVIDERS: ATTEND Nurse Practitioner Adult Health
DX: J18.9 Pneumonia, unspecified organism (principal)

== ENCOUNTER → 2019-12-27 | Outpatient (CLI) | payer MEDICARE ==
--- NOTE | 2020-01-10 12:37 | REP ---
LEFT ANKLE SERIES: 4-VIEWS HISTORY: Pain. FINDINGS: Four views of the left ankle demonstrate mild soft tissue swelling about the lateral malleolus. Ankle mortise is intact. There is a small accessory ossicle medial to the lateral malleolar tip, which is well corticated. This does not appear to be an acute fracture. Old injury versus accessory ossicle. There is minimal spurring of the distal talus. Mild plantar calcaneal spurring is noted. Vascular calcification is visible. IMPRESSION: No acute bony abnormality. Lateral soft tissue swelling. Heel spurring and distal talar spurring. MTDD
== END ==
LOC: M WUC 19:00
PROVIDERS: ATTEND Physician Assistant
DX: M77.32 Calcaneal spur, left foot (principal); M25.572 Pain in left ankle and joints of left foot

== ENCOUNTER → 2020-01-09 | Outpatient (CLI) | payer MEDICARE | LOC: M LABSMTC 13:43 | PROVIDERS: ATTEND Anesthesiology | DX: Z01.812 Encounter for preprocedural laboratory examination (principal); Z20.828 Contact with and (suspected) exposure to other viral communicable diseases | CPT/HCPCS: C9803; U0003 ==

== ENCOUNTER → 2020-03-04 | Outpatient (REF) | payer MEDICARE | LOC: M LAB REF 16:29 | PROVIDERS: ATTEND Nurse Practitioner Adult Health | DX: N39.0 Urinary tract infection, site not specified (principal) ==

== ENCOUNTER → 2020-03-27 | Outpatient (CLI) | payer MEDICARE ==
[~2020-03-27] MED LIST changes: +COMBAER6 INH; +D-3-50003 PO; +DYMI137S NARES; -MONT10TA4 PO; +MONT5TAB2 PO; +NITR100C2 PO; +PERC5TAB12 PO; +PROL60SO SC; +SPIR1AER INH
== END ==
LOC: M LABSMTC 10:28
PROVIDERS: ATTEND Anesthesiology
DX: Z01.812 Encounter for preprocedural laboratory examination (principal); Z20.828 Contact with and (suspected) exposure to other viral communicable diseases

== ENCOUNTER 2020-04-01 06:06 | Inpatient (IN) | payer MEDICARE ==
--- NOTE | 2020-03-27 15:03 | HPE ---
HISTORY AND PHYSICAL DATE OF ADMISSION: 04/01/2020 ADMITTING DIAGNOSIS: Back pain, pain down her right leg. HISTORY: This is a 69-year-old female patient with progressively worsening back pain that has failed to improve with conservative management to include physical therapy, activity modifications, medications, and injections. She continues to have pain with weightbearing activities and activities of daily living., It goes down into her right leg. It gives her difficulties with doing all of her normal day to day activities. She has elected for surgery for her continued symptoms. She has been consented by Dr. Cavazos for a right unilateral laminectomy, L4, L5, S1, and posterior spinal fusion at L4, L5, and S1 with the use of pedical screws, right or left iliac crest graft, and the use of Vivigen bone graft as well. MEDICAL OPTIMIZATION: Lily Fields. ALLERGIES: PENICILLIN causes rash and nausea. VANCOMYCIN causes her head to itch. KEFLEX. CURRENT MEDICATIONS: - Spiriva 1.25 mcg - albuterol inhaler as needed - budesonide - vitamin D3 - aspirin 81 mg. She knows to discontinue that 5 days prior surgery. - metformin 500 mg - Symbicort 160/4.25 mcg - omeprazole 40 mg - paroxetine 20 mg - cetirizine 10 mg as needed - ezetimibe 10 mg - bisoprolol 5 mg MEDICAL CONDITIONS: 1. Asymptomatic spondylolisthesis of the lumbar spine. 2. Symptomatic spinal stenosis of the lumbar spine. 3. Lower extremity radiculopathy. 4. Sleep apnea. 5. Heart disease. 6. Chronic kidney disease, stage III. 7. Chronic hypoxemic respiratory failure. 8. Chronic obstructive pulmonary disease (COPD). 9. Gastric reflux disease. 10. Hyperlipidemia. 11. Elevated cholesterol. 12. Type 2 diabetes. 13. She does use supplemental oxygen with walking. 14. Osteopenia. 15. B12 deficiency. 16. Macular degeneration. 17. Anxiety. SURGICAL HISTORY: 1. Cardiac stenting. 2. Carpal tunnel release. 3. Ulnar nerve release. 4. left total hip arthroplasty. 5. Partial amputation of her left thumb. 6. Appendectomy. 7. Hysterectomy. FAMILY HISTORY: Cancer, arthritis, elevated cholesterol, hypertension, and diabetes. SOCIAL HISTORY: She is a former smoker. Denies alcohol use. REVIEW OF SYSTEMS: Denies fever or chills. Denies chest pain or cough. She has longstanding shortness of breath that is unchanged for her. She is pending clearance from cardiology as well. She denies abdominal pain. Denies exposure to COVID-19. PHYSICAL EXAMINATION: Today reveals a frail, elderly female patient who ambulates with the use of a rolling walker. Her gait is not wide based. She struggles with transition from a seated to standing position. She does use the walker for transitions. Deep tendon reflexes are 2 at the knees, 1 at the ankles. Straight raise leg testing is negative. The neck is supple without adenopathy or jugular venous distention (JVD). Lung sounds are appreciable, most notable in the upper bases. There is slight wheeze on the lower bases on exam today. Heart is irregular rate. Abdomen and bowel sounds are present. Current vital signs: Height 5 feet 11 inches, weight 198 pounds, temperature 96.6, blood pressure 126/84, pulse 80, respirations 18. LABORATORY DATA: Hemoglobin and basic metabolic panel are pending. CT of the chest notable for chronic changes consistent with COPD. Mainly chronic changes. No acute findings. Repeat chest x-ray also consistent with chronic changes done in November. Her EKG is not present for review today. Blood work done, though, at her regular doctor's office on March 13 notes a WBC count of 9, hemoglobin 11.6, hematocrit 34.0. Her glucose was 94, BUN 16, creatinine 0.9, sodium 143, potassium 4.0. IMPRESSION: 1. Lumbar spinal stenosis. 2. Lumbar spondylolisthesis, symptotic with lumbar radiculopathy, most notably at L4, L5, and S1. PLAN: She is consented by Dr. Cavazos for a right unilateral laminectomy at L4, L5, S1 with posterior spinal fusion, L4, L5, and S1 with the use of pedicle screws, right or left iliac crest graft, and also use of Vivigen bone graft as well. We did review the pre and postoperative instructions. She understands to be on time for her appointments. She knows the importance to self-quarantine while she is awaiting surgery. She understands the time she will be in the hospital. We reviewed that she needs to take only the medications as directed by her primary. All of her questions were answered.
[~2020-04-01] VITALS: Ht 154.9 cm; Wt 71.8 kg
[~2020-04-01 06:06] MED LIST changes: -PERC5TAB12 PO
[2020-04-01] MEDS ORDERED: MIDAZOLAM INJ 2MG/2ML VIAL (J2250 PER 1MG) As Ordered ONE (06:55)
[2020-04-01] MEDS ORDERED: PHENYLephrine HCL 500 MCG/5 ML (100MCG/ML) SYRINGE (J2370) As Ordered ONE (06:56)
[2020-04-01] MEDS ORDERED: ePHEDrine SULFATE 25 MG/5 ML(5MG/ML) SYRINGE As Ordered ONE ×2 (06:56→10:55)
[2020-04-01] MEDS ORDERED: fentaNYL 250 MCG/5 ML INJECTION (J3010) As Ordered ONE (06:56)
[2020-04-01] MEDS ORDERED: LIDOCAINE 2% 100MG/5ML SDV (FOR ANES.) As Ordered ONE (06:57)
[2020-04-01] MEDS ORDERED: ROCURONIUM BROMIDE 50 MG/5 ML VIAL As Ordered ONE (06:57)
[2020-04-01] MEDS ORDERED: SUGAMMADEX SODIUM 500 MG/5 ML VIAL (BRIDION) As Ordered ONE (06:57)
[2020-04-01] MEDS ORDERED: ONDANSETRON 4MG/2ML VIAL As Ordered ONE (06:57)
[2020-04-01] MEDS ORDERED: dexameTHASONE 4 MG/ML 1ML VIAL (J1100 PER 1MG) As Ordered ONE (06:57)
[2020-04-01] MEDS ORDERED: propofoL 200 MG/20 ML VIAL As Ordered ONE (06:57)
[2020-04-01] MEDS ORDERED: LR 1,000 ML IV ONE (07:00)
[2020-04-01] MEDS ORDERED: PERCOCET 5MG/325MG TAB PO ONE (07:00)
[2020-04-01] MEDS ORDERED: ceFAZolin SOD 1 GM in D5W MINI-BAG PLUS 50 ML IV ONE (07:00)
[2020-04-01] MEDS ORDERED: THROMBIN SOLN 20,000 UNITS KIT As Ordered ONE (07:17)
[2020-04-01] MEDS ORDERED: TRANEXAMIC ACID 100 MG/ML 10ML VIAL As Ordered ONE (07:17)
[2020-04-01] MEDS ORDERED: BUPIVACAINE HCL 0.5% 10ML VIAL As Ordered ONE (07:17)
[2020-04-01] MEDS ORDERED: EPINEPHrine INJ 1 MG/ML 1ML AMP As Ordered ONE (07:18)
[2020-04-01] MEDS ORDERED: BUPIVACAINE LIPOSOME/PF 1.3% 20ML VIAL (13.3MG/ML)(EXPAREL)(C9290 PER1MG) As Ordered ONE (07:18)
[2020-04-01] MEDS ORDERED: VANCOMYCIN 500MG/10ML VIAL As Ordered ONE (07:18)
[2020-04-01] MEDS ORDERED: BACITRACIN PWD 50,000 UNITS VIAL As Ordered ONE (07:19)
[2020-04-01] MEDS ORDERED: LIDOCAINE W/EPINEPHRINE 1% 20ML VIAL As Ordered ONE (08:03)
[2020-04-01] MEDS ORDERED: ceFAZolin 2 GM/D5W 50 ML IV BAG (J0690 PER 500MG) As Ordered ONE (12:32)
--- NOTE | 2020-04-01 13:30 | REP ---
INDICATION: RIGHT SIDE SPINAL LEVEL L4-5-S SPONDYLOLISTHESIS. COMPARISON: MRI 05/12/2019, plain films 02/24/2017. TECHNIQUE: Intraoperative views lumbosacral spine performed. FINDINGS: A lateral view of the lumbar spine demonstrates a metallic probe posteriorly at the L4-5 level. There is no compression deformity. There is moderate disc space narrowing, spurring, subchondral sclerosis and vacuum at L4-5 and L5-S1. Postoperative C-arm views the AP and lateral projections show posterior fusion rods and pedicle screws bridging L4 through S1 posteriorly. There is mild stable anterolisthesis of L4 on L5. IMPRESSION: Placement of posterior fusion hardware L4 through S1. Fluoroscopy time 156 seconds. <Electronically signed by Sabas Sanchez > 04/01/20 [id number]
[2020-04-01] MEDS ORDERED: ceFAZolin SOD 1 GM in D5W MINI-BAG PLUS 50 ML IV SCH (14:00)
[2020-04-01] MEDS ORDERED: LR 1,000 ML IV SCH (14:00)
[2020-04-01] MEDS ORDERED: ACETAMINOPHEN TAB 650MG DOSE (2X325MG) PO PRN (14:00)
[2020-04-01] MEDS ORDERED: ONDANSETRON 4MG/2ML VIAL IV PRN ×2 (14:00)
[2020-04-01] MEDS ORDERED: MORPHINE 4 MG/ML 1ML VIAL/SYRINGE (J2270) IV PRN (14:00)
[2020-04-01] MEDS ORDERED: MEPERIDINE INJ 25 MG/ML VIAL (J2175) IV PRN (14:00)
[2020-04-01] MEDS ORDERED: METOCLOPRAMIDE INJ 10MG/2ML VIAL (J2765 PER 1) IV PRN (14:00)
[2020-04-01] MEDS: fentaNYL 100 MCG/2 ML INJECTION (J3010) IV PRN ×4 (14:09→14:50)
[2020-04-01] MEDS: oxyCODONE 5MG TAB PO PRN ×2 (14:10→14:53)
[2020-04-01] MEDS ORDERED: PERCOCET 5MG/325MG TAB PO PRN (14:15)
[2020-04-01 16:00] VITALS: BP 124/76
[2020-04-01 16:30] VITALS: BP 126/75
[2020-04-01] MEDS ORDERED: ALBUTEROL 90 MCG/ACT 8GM HFA INHALER INH PRN (16:30)
--- NOTE | 2020-04-01 17:01 | HPEPDOC ---
General Date of Admission Apr 01, 2020 at 06:06 Date of Service: Apr 01, 2020 Chief Complaint The patient is a 69-year-old female admitted with a reason for visit of Right Side Spinal Level L4-5-S Spondylolisthesis... Source: Patient, RN/MD History of Present Illness Consultation report: Consultation requested by Dr Cavazos. HPI: This is a 69 year old female with PMH of COPD , interstitial fibrosis, chronic resp failure on home oxygen, DONTE on CPAP, cad s/p stents, DM, HTn, HLD, GERD, Anxiety, depression, Lumbar spondylolisthesis, symptotic with lumbar radiculopathy, most notably at L4, L5, and S1. She was admitted by Dr Cavazos for a right unilateral laminectomy at L4, L5, S1 with posterior spinal fusion, L4, L5, and S1 with the use of pedicle screws, right or left iliac crest graft, and also use of Vivigen bone graft as well. She underwent surgery today. It was a 4 hour procedure. The surgery was uneventful and patient doing well post op. Hospitalist was consulted for the management of her multiple medical comor bidities. patient complains of pain in her lower back at the surgical site, sharp aching about 5/10 in intensity . She was given a pain medication. She feels very tired and sleepy. Home Medications Scheduled Aspirin (Aspirin EC) 81 Mg Tabec, 81 MG PO DAILY, (Reported) Atorvastatin Calcium (Atorvastatin Calcium) 80 Mg Tablet, 80 MG PO QHS, (Reported) Budesonide/Formoterol (Symbicort 160-4.5 Mcg Inhaler) 60 Puff/Inhaler Aers, 2 PUFF INH BID, (Reported) Calcium Carbonate/Vitamin D3 (Calcium 500-Vit D3 200 Caplet) 1 Tab Tab, 1 TAB PO DAILY, (Reported) Cetirizine HCl (Cetirizine HCl) 10 Mg Tablet, 10 MG PO DAILY, (Reported) Cholecalciferol (Vitamin D3) (Vitamin D3) 125 Mcg Capsule, 125 MCG PO DAILY, (Reported) Ezetimibe (Ezetimibe) 10 Mg Tablet, 10 MG PO QHS, (Reported) Metformin HCl (Metformin HCl) 500 Mg Tablet, 500 MG PO DAILY, (Reported) Montelukast Sodium (Montelukast Sodium) 10 Mg Tab, 10 MG PO DAILY, (Reported) Omeprazole (Omeprazole) 40 Mg Cap, 40 MG PO QHS, (Reported) Paroxetine HCl (Paroxetine HCl) 20 Mg Tab, 20 MG PO DAILY, (Reported) Pregabalin (Lyrica) 75 Mg Capsule, 75 MG PO BID, (Reported) Tiotropium [place] (Spiriva Respimat) 4 Gm Mist.inhal, 1.25 MCG INH DAILY, (Reported) Scheduled PRN Albuterol Sulf (Albuterol Sulfate) 2.5 Mg/3 Ml Nebu, 2.5 MG INH Q4H PRN for WHEEZING, (Reported) Albuterol Sulfate (Proair Hfa) 108 Mcg/Act Aer, 2 PUFF INH QID PRN for SHORTNESS OF BREATH, (Reported) Nitroglycerin (Nitroglycerin) 0.4 Mg Tab.subl, 0.4 MG SL NITRO PRN for CHEST PAIN, (Reported) Miscellaneous Medications Denosumab Injection (Prolia) 60 Mg/1 Ml Syringe, 60 MG SC, (Reported) Allergies Coded Allergies: vancomycin (Verified Allergy, Severe, N/V, ITCH, 01/07/20) Penicillins (Verified Allergy, Mild, RASH, 01/07/20) Past Medical History Medical History COPD / Chronic interstitial pulmonary fibrosis DONTE on CPAP Chronic resp failure uses 6 L bleed into the CPAP Active smoker / nicotine dependence DM2 with Neuropathy DLP CAD status post 2 stents (2018) GERD Periodic limb movement disorder Depression and anxiety Chronic neuropathy and chronic pain Vitamin D deficiency Allergic rhinitis CKD stage 3 Asymptomatic spondylolisthesis of the lumbar spine. Symptomatic spinal stenosis of the lumbar spine. Lower extremity radiculopathy. Osteopenia. B12 deficiency. Macular degeneration. Anxiety. Surgical History Left hip replacement, bilateral rotator cuff repair 4 times , ulnar nerve release on the right elbow Coppertone or release on right side, the left thumb partial amputation from accident, hysterectomy, appendectomy, tonsillectomy Cardiac stenting. Carpal tunnel release. Family History Cancer, arthritis, elevated cholesterol, hypertension, and diabetes. A-FIB/CHADSVASC A-FIB History Current/History of A-Fib/PAF?: No Review of Systems Constitutional: Reports: Fatigue; Denies: Chills, Fever, Night Sweats Eyes: Denies: Pain, Vision change ENT: Denies: Head Aches, Ear Pain, Dysphagia Skin: Denies: Rash, Lesions, Breakdown Pulmonary: Denies: Dyspnea, Cough Cardiovascular: Denies: Chest Pain, Palpitations, Orthopnea, Paroxysmal Noc. Dyspnea, Lt Headedness Gastrointestinal: Denies: Nausea, Vomiting, Abdominal Pain, Diarrhea Genitourinary: Denies: Dysuria, Frequency, Incontinence, Retention Hematologic: Denies: Bruising, Bleeding Excessively Musculoskeletal: Reports: Back Pain Physical Examination General Exam: Positive: Alert, Cooperative, No Acute Distress Eye Exam: Positive: PERRLA, Conjunctiva & lids normal, EOMI; Negative: Sclera icteric ENT Exam: Positive: Atraumatic, Mucous membr. moist/pink, Pharynx Normal Neck Exam: Positive: Supple; Negative: JVD, thyromegaly Chest Exam: Positive: Clear to auscultation, Normal air movement Heart Exam: Positive: Rate Normal, Regular Rhythm, Normal S1, Normal S2; Negative: Murmurs, Rubs Abdomen Exam: Positive: Normal bowel sounds, Soft; Negative: Tenderness, Hepatospenomegaly Extremity Exam: Positive: Normal pulses; Negative: Clubbing, Cyanosis, Edema Vital Signs Vital Signs Date Time Temp Pulse Resp B/P (MAP) Pulse Ox O2 Delivery O2 Flow Rate FiO2 04/01/20 13:55 97.6 84 16 135/57 (83) 91 Nasal Cannula 3 Laboratory Data Labs 24H Laboratory Tests 2 04/01/20 13:39: Bedside Glucose (Misc Panel) 196H Assessment/Plan This is a 69 year old female with PMH of COPD , interstitial fibrosis, chronic resp failure on home oxygen, DONTE on CPAP, cad s/p stents, DM, HTn, HLD, GERD, Anxiety, depression, Lumbar spondylolisthesis, symptotic with lumbar radiculopathy, most notably at L4, L5, and S1. She was admitted by Dr Cavazos for a right unilateral laminectomy at L4, L5, S1 with posterior spinal fusion, L4, L5, and S1 with the use of pedicle screws, right or left iliac crest graft, and also use of Vivigen bone graft as well. She underwent surgery today. It was a 4 hour procedure. The surgery was uneventful and patient doing well post op. Hospitalist was consulted for the management of her multiple medical comorbidities. Right unilateral laminectomy at L4, L5, S1 with posterior spinal fusion, L4, L5, and S1 with the use of pedicle screws, right or left iliac crest graft, and also use of Vivigen bone graft as well. Pain control and dvt prophylasxis as per orthopedics she is on ASA COPD / Chronic interstitial pulmonary fibrosis/ chronic respiratory failure with hypoxia continue symbicort, spiriva, albuterol prn oxygen supplementation . Uses 2 L during the day and 6 Liters at night with the CPAP DONTE on CPAP use own CPAP DM2 with Neuropathy will hold metformin Lispro as per sliding scale FS Ac and hs continue lyrica. DLP atorvastatin and ezetimibe CAD status post 2 stents (2017) ASA, betablocker and statin. GERD omeprazole Depression and anxiety paroxetine Chronic neuropathy and chronic pain lyrica Allergic rhinitis cetrizine, singulair. CKD stage 3 will get bmp tomorrow Plan / VTE VTE Prophylaxis Ordered?: Yes PRESTON MONTEZ MD Apr 01, 2020 14:24
[2020-04-01 17:30] VITALS: BP 128/73
[2020-04-01] MEDS: PERCOCET 5MG/325MG TAB PO PRN ×2 (18:03→23:18)
[2020-04-01 18:30] VITALS: BP 99/73
[2020-04-01] MEDS: SYMBICORT 160/4.5MCG INHALER 6GM INH SCH (20:31)
[2020-04-01] MEDS: PREGABALIN 75 MG CAP(LYRICA) PO SCH (20:45)
[2020-04-01] MEDS: OMEPRAZOLE 20 MG CAP PO SCH (20:45)
[2020-04-01] MEDS: EZETIMIBE 10 MG TAB (ZETIA) PO SCH (20:45)
[2020-04-01] MEDS: ceFAZolin SOD 1 GM in D5W MINI-BAG PLUS 50 ML IV SCH (20:46)
[2020-04-01] MEDS: ATORVASTATIN 20 MG TAB PO SCH (20:47)
[2020-04-01 22:00] VITALS: BP 116/62
[2020-04-02] MEDS: ceFAZolin SOD 1 GM in D5W MINI-BAG PLUS 50 ML IV SCH ×2 (01:40→08:16)
[2020-04-02 02:00] VITALS: BP 123/54
[2020-04-02] MEDS: PERCOCET 5MG/325MG TAB PO PRN (04:20)
[2020-04-02 06:00] VITALS: BP 133/56
[2020-04-02] MEDS ORDERED: MOM 30ML SUSPENSION UDC PO SCH (06:00)
[2020-04-02] MEDS: ACETAMINOPHEN 500 MG TAB PO SCH ×3 (06:34→22:34)
[2020-04-02] MEDS ORDERED: PERC5TAB12 PO (07:01)
[2020-04-02 07:13] LABS: BLOOD UREA NITROGEN 16 MG/DL (7-18); CALCIUM LEVEL 8.4 MG/DL (8.8-10.2); CARBON DIOXIDE LEVEL 30 MEQ/L (21-32); CHLORIDE LEVEL 104 MEQ/L (98-107); CREATININE FOR GFR 0.94 MG/DL (0.55-1.30); GLOMERULAR FILTRATION RATE > 60.0 (>39); GLUCOSE, FASTING 139 MG/DL (70-100); POTASSIUM SERUM 4.5 MEQ/L (3.5-5.1); SODIUM LEVEL 140 MEQ/L (136-145)
[2020-04-02] MEDS ORDERED: MOM 30ML SUSPENSION UDC PO PRN (07:45)
[2020-04-02] MEDS: SYMBICORT 160/4.5MCG INHALER 6GM INH SCH ×2 (08:06→20:44)
[2020-04-02] MEDS: TIOTROPIUM INHALER/CAPSULE (SPIRIVA) INH SCH (08:07)
[2020-04-02] MEDS: PREGABALIN 75 MG CAP(LYRICA) PO SCH ×2 (08:19→22:34)
[2020-04-02] MEDS: METAMUCIL (PSYLLIUM) PACKET PO SCH (08:19)
[2020-04-02] MEDS: MONTELUKAST 10 MG TAB PO SCH (08:19)
[2020-04-02] MEDS: CETIRIZINE (ZyrTEC) 10 MG TAB PO SCH (08:19)
[2020-04-02] MEDS: MIRALAX *UNIT DOSE* 17GM PACKET PO SCH (08:19)
[2020-04-02] MEDS: ASPIRIN 81 MG ENTERIC TAB PO SCH (08:19)
[2020-04-02] MEDS: PARoxetine 20MG TABLET PO SCH (08:19)
[2020-04-02] MEDS: traMADol 50 MG TAB PO PRN ×2 (11:49→19:04)
--- NOTE | 2020-04-02 13:07 | IPNPDOC ---
Subjective Date Seen The patient was seen on 04/02/20. Subjective Chief Complaint/HPI Complains of some back pain, has brace on. Sitting up in chair, no fever or chills, no chest pain or sob though has some wheezing Objective Physical Examination General Exam: Positive: Alert, Cooperative, No Acute Distress Eye Exam: Positive: PERRLA, Conjunctiva & lids normal, EOMI; Negative: Sclera icteric ENT Exam: Positive: Atraumatic, Mucous membr. moist/pink, Pharynx Normal Neck Exam: Positive: Supple; Negative: JVD, thyromegaly Chest Exam: Positive: Normal air movement, Wheezing, Other (coarse breath sounds.) Heart Exam: Positive: Rate Normal, Regular Rhythm, Normal S1, Normal S2; Negative: Murmurs, Rubs Abdomen Exam: Positive: Normal bowel sounds, Soft; Negative: Tenderness, Hepatospenomegaly Extremity Exam: Positive: Normal pulses; Negative: Clubbing, Cyanosis, Edema Assessment /Plan Assessment This is a 69 year old female with PMH of COPD , interstitial fibrosis, chronic resp failure on home oxygen, DONTE on CPAP, cad s/p stents, DM, HTn, HLD, GERD, Anxiety, depression, Lumbar spondylolisthesis, symptotic with lumbar radiculopathy, most notably at L4, L5, and S1. She was admitted by Dr Cavazos for a right unilateral laminectomy at L4, L5, S1 with posterior spinal fusion, L4, L5, and S1 with the use of pedicle screws, right or left iliac crest graft, and also use of Vivigen bone graft as well. She underwent surgery today. It was a 4 hour procedure. The surgery was uneventful and patient doing well post op. Hospitalist was consulted for the management of her multiple medical comorbidities. Right unilateral laminectomy at L4, L5, S1 with posterior spinal fusion, L4, L5, and S1 with the use of pedicle screws, right or left iliac crest graft, and also use of Vivigen bone graft as well. Pain control and dvt prophylasxis as per orthopedics she is on ASA COPD / Chronic interstitial pulmonary fibrosis/ chronic respiratory failure with hypoxia continue symbicort, spiriva, albuterol prn oxygen supplementation . Uses 2 L during the day and 6 Liters at night with the CPAP will order incentive spirometry. DONTE on CPAP use own CPAP DM2 with Neuropathy will hold metformin Lispro as per sliding scale FS Ac and hs continue lyrica. DLP atorvastatin and ezetimibe CAD status post 2 stents (2018) ASA, betablocker and statin. GERD omeprazole Depression and anxiety paroxetine Chronic neuropathy and chronic pain lyrica Allergic rhinitis cetrizine, singulair. CKD stage 3 will get bmp tomorrow Plan/VTE VTE Prophylaxis Ordered?: Yes VS, I&O, 24H, Fishbone Vital Signs/I&O Vital Signs Date Time Temp Pulse Resp B/P (MAP) Pulse Ox O2 Delivery O2 Flow Rate FiO2 04/02/20 12:19 18 04/02/20 07:40 3.0 04/02/20 06:00 98.5 88 133/56 (81) 92 Nasal Cannula I&O- Last 24 Hours up to 6 AM 04/02/20 06:00 Intake Total 2820 ml Output Total 1840 ml Balance 980 ml Laboratory Data 24H LABS Laboratory Tests 2 04/01/20 13:39: Bedside Glucose (Misc Panel) 196H 04/01/20 16:27: Bedside Glucose (Misc Panel) 132H 04/01/20 21:01: Bedside Glucose (Misc Panel) 190H 04/02/20 05:58: Anion Gap 6L, Glomerular Filtration Rate > 60.0, Calcium Level 8.4L 04/02/20 11:29: Bedside Glucose (Misc Panel) 227H CBC/BMP Laboratory Tests 04/02/20 05:58 PRESTON MONTEZ MD Apr 02, 2020 13:07
[2020-04-02 14:00] VITALS: BP 138/58
--- NOTE | 2020-04-02 14:32 | RO ---
OPERATIVE NOTE DATE OF OPERATION: 04/01/2020 PREOPERATIVE DIAGNOSIS: Spondylolisthesis at L4-5 with right greater than left lower extremity neurogenic claudication. POSTOPERATIVE DIAGNOSIS: Spondylolisthesis at L4-5 with right greater than left lower extremity neurogenic claudication. PROCEDURE PERFORMED: Right L4 unilateral laminectomy for decompression of the thecal sac and exiting nerve root, right L5 unilateral laminectomy for decompression of the thecal sac and traversing nerve root bilaterally. Posterior spinal fusion intertransverse L4-5, posterior spinal fusion additional level intertransverse L5-S1, segmental instrumentation L4,5, S1, bilateral pedicle screws, harvest and placement of morselized right iliac crest bone graft as well as local graft. SURGEON: Warner Cavazos MD MARGARINE MAKER: Stephen Smith PA-C ANESTHESIA: General endotracheal. ESTIMATED BLOOD LOSS: Less than 250 mL, replaced with Crystalloid. COMPLICATIONS: None. COMPONENTS USED: Energy Excelerator open pedicle screw system and Purple donor bone graft. CONSENTS: Reviewed in detail with the patient including willow discussion of the pathology involved, procedure proposed, alternatives including doing nothing and risks including but not limited to pain, failure, infection, bleeding, blood loss, nerve injury, and other issues, the patient agrees. INDICATIONS FOR SURGERY: Include neurogenic claudication, progressive over time, unresponsive to conservative management. OPERATIVE COURSE: Identified in the holding area, again reviewed the consent with the patient. She was brought to the operating room, general endotracheal anesthesia was administered. She was positioned for exposure of the lumbar spine. Once I and the mold filling operator were comfortable with the patient's positioning she was then sterilely prepped and draped in usual fashion. Time out was accomplished. Line of incision was outlined with a marking pen, infiltrated with 1% Lidocaine with Epinephrine as hemostatic agent. I stood on the patient's right side and Mr. Smith on the patient's left side. An incision was made with 10-blade, developed down through skin and subcuticular tissue to the posterior lumbar fascia. Posterior lumbar fascia was reflected off the spinous process of L4, 5, down to S1. Dissection continued down the L4-5 interspace and S1 lamina. A divot was drilled in the posterior lamina of 4 and we placed a Salazar Alfonso divot, cross table lateral x-ray was taken to verify our level. The dissection continued exposing the transverse processes on the right side of 4-5 and sacral ala. Once this was accomplished Shadow-Line retractor was placed and the operating microscope was sterilely draped and brought in for additional portions of the procedure. I exchanged my loupe magnification for the operating microscope. Mr. Smith utilized oculars on the right and on the left. Mr. Smith functioned as the home health assistant operating suction device and retractors. We utilized Leksells to remove hypertrophied facet complex and posterior lamina. I then utilized the high speed bur to implement a right unilateral L4 laminectomy extending superiorly through the bare area of 4, undercutting the spinous process of 4, extending inferiorly through the lamina of 5, through the bare area of 5, and undercutting the 5 spinous process. This allowed me to elevate the ligamentum flavum with curettes and remove it using Kerrisons and pituitaries from the midline. I then decompressed the contralateral lateral recess over the dura horizon using curettes and Kerrisons. Significant hypertrophied ligamentum flavum was removed. I then removed lateral recess spinal stenosis from the right using Kerrisons and curettes. Once this was accomplished we irrigated including irrigation with TXA for hemostasis purposes. Once this was accomplished the operating microscope was withdrawn from the field. We re-gowned with lead and I exchanged back to loupe and headlight magnification. Mr. Smith utilized right posterior superior iliac spine, I opened the fascia with Bovie cautery and opened the posterior iliac crest using Leksell and removed morselized bone graft using Salgado curettes. The wound was irrigated, placed TXA in the wound as well as dry Gelfoam and closed the separate fascial incision. Once this was accomplished we exposed the left side. I reflected off of the spinal processes of 4, 5 and S1 and we dissected out over the facet complexes of 4-5 and 5-1 and exposed the transverse processes of 4, 5 and S1 ala. Once this was accomplished we placed pedicle screws. I drilled the mammillary process on the right side at L4, L5 and S1. Fluoroscope was used to assist in targeting. We advanced pedicle finder through the pedicle of 4, used the ball-tip guide to verify pedicle tract, used the tap to tap the pedicle tract, used the ball-tip guide to palpate integrity of the tract including anteriorly. We selected 6 mm pedicle screw of the appropriate length and placed it on the right at the L4 pedicle. The L5 and S1 pedicles were cannulated in similar fashion and screws were placed. A connecting vikas was selected, placed within the pedicle screws and secured using the counter-torque device. The transverse processes were decorticated and bone graft was placed over the transverse processes on the right. On the left side we cannulated the pedicles; we placed screws in similar fashion including use of ball-tip guide, before and after use of the tap, used fluoroscope for targeting. We placed the appropriate length pedicle screws. We decorticated the transverse processes and sacral ala and placed remaining iliac crest bone graft as well as the donor bone graft ViviGen over the facet complexes and transverse processes. We had irrigated prior to graft placement. Once the screws and grafts had been placed bilaterally we again inspected midline and irrigated. We placed a drain exiting superolateral to the right and we closed the wound with interrupted stitch at the fascia level as well as dermal level and applied Prineo dressing and drain sponge dressing. Once this was accomplished final fluoroscopic images were obtained. The patient was log-rolled to the hospital bed, extubated and moved to the recovery room in good condition. For further details please refer to medical record. Mr. Smith was present and participated in the entirety of the case in capacity of home health assistant.
[2020-04-02 21:00] VITALS: O2SAT 93
[2020-04-02 22:00] VITALS: BP 134/60
[2020-04-02] MEDS: OMEPRAZOLE 20 MG CAP PO SCH (22:33)
[2020-04-02] MEDS: EZETIMIBE 10 MG TAB (ZETIA) PO SCH (22:34)
[2020-04-02] MEDS: ATORVASTATIN 20 MG TAB PO SCH (22:34)
[2020-04-03] MEDS ORDERED: GLUCAGON INJ 1MG VIAL SC PRN (03:45)
[2020-04-03] MEDS ORDERED: GLUCOSE 4GM CHEW TABLET PO PRN (03:45)
[2020-04-03] MEDS ORDERED: DEXTROSE 50% 50 ML SYRINGE IV PRN (03:45)
[2020-04-03] MEDS: ACETAMINOPHEN 500 MG TAB PO SCH ×3 (05:38→21:31)
[2020-04-03 06:00] VITALS: BP 137/59
[2020-04-03] MEDS: SYMBICORT 160/4.5MCG INHALER 6GM INH SCH ×2 (06:45→20:31)
[2020-04-03] MEDS: TIOTROPIUM INHALER/CAPSULE (SPIRIVA) INH SCH (06:45)
[2020-04-03 07:28] LABS: BLOOD UREA NITROGEN 12 MG/DL (7-18); CALCIUM LEVEL 8.3 MG/DL (8.8-10.2); CARBON DIOXIDE LEVEL 28 MEQ/L (21-32); CHLORIDE LEVEL 105 MEQ/L (98-107); CREATININE FOR GFR 0.83 MG/DL (0.55-1.30); GLOMERULAR FILTRATION RATE > 60.0 (>39); GLUCOSE, FASTING 147 MG/DL (70-100); POTASSIUM SERUM 4.4 MEQ/L (3.5-5.1); SODIUM LEVEL 138 MEQ/L (136-145)
[2020-04-03] MEDS ORDERED: BACT800T5 PO (08:03)
[2020-04-03] MEDS ORDERED: MAGNESIUM CITRATE 300 ML BTL PO ONE (08:15)
[2020-04-03] MEDS: METAMUCIL (PSYLLIUM) PACKET PO SCH (08:45)
[2020-04-03] MEDS: MIRALAX *UNIT DOSE* 17GM PACKET PO SCH (08:45)
[2020-04-03] MEDS: PREGABALIN 75 MG CAP(LYRICA) PO SCH ×2 (08:46→21:30)
[2020-04-03] MEDS: CETIRIZINE (ZyrTEC) 10 MG TAB PO SCH (08:46)
[2020-04-03] MEDS: PARoxetine 20MG TABLET PO SCH (08:46)
[2020-04-03] MEDS: ASPIRIN 81 MG ENTERIC TAB PO SCH (08:46)
[2020-04-03] MEDS: BACTRIM 160MG/800MG DS TAB PO SCH ×2 (08:46→21:30)
[2020-04-03] MEDS: MONTELUKAST 10 MG TAB PO SCH (08:46)
[2020-04-03] MEDS: HumaLOG INSULIN (NovoLOG) PER UNIT SC SCH ×4 (08:47→21:00)
[2020-04-03] MEDS: traMADol 50 MG TAB PO PRN ×2 (12:21→21:31)
[2020-04-03 14:00] VITALS: BP 132/61
[2020-04-03 16:10] VITALS: O2SAT 93; O2SAT 98
[2020-04-03] MEDS ORDERED: FLEET ENEMA PR ONE (17:00)
[2020-04-03] MEDS: OMEPRAZOLE 20 MG CAP PO SCH (21:30)
[2020-04-03] MEDS: EZETIMIBE 10 MG TAB (ZETIA) PO SCH (21:30)
[2020-04-03] MEDS: ATORVASTATIN 20 MG TAB PO SCH (21:30)
[2020-04-03 21:35] VITALS: BP 121/60
[2020-04-03] MEDS: BISACODYL 10 MG SUPP PR PRN (21:43)
[2020-04-04] MEDS ORDERED: diphenhydrAMINE 50MG CAP PO ONE (01:00)
[2020-04-04] MEDS: BISACODYL 10 MG SUPP PR PRN ×2 (01:43→06:21)
[2020-04-04 02:20] LABS: APPEARANCE, URINE HAZY (CLEAR); BACTERIA, URINE AUTO NEGATIVE (NEGATIVE); BILIRUBIN, URINE AUTO NEGATIVE (NEGATIVE); BLOOD, URINE BLOOD NEGATIVE (NEGATIVE); COLOR, URINE YELLOW (YELLOW); GLUCOSE, URINE (UA) AUTO NEGATIVE (NEGATIVE); KETONE, URINE AUTO NEGATIVE (NEGATIVE); LEUKOCYTE ESTERASE, URINE AUTO NEGATIVE (NEGATIVE); NITRITE, URINE AUTO NEGATIVE (NEGATIVE); PROTEIN, URINE AUTO 1+ mg/dL (NEGATIVE); RBC, URINE AUTO 1 /HPF (0-3); SPECIFIC GRAVITY URINE AUTO 1.014 (1.002-1.035); SQUAMOUS EPITHELIAL CELL UR AU 1 /HPF (0-6); UROBILINOGEN, URINE AUTO 0.2 mg/dL (0.0-2.0); WBC, URINE AUTO 2 /HPF (0-3)
[2020-04-04 06:00] VITALS: BP 119/61
[2020-04-04] MEDS ORDERED: LACTULOSE 20 GM/30 ML SYRUP UD PO ONE (06:15)
[2020-04-04] MEDS: ACETAMINOPHEN 500 MG TAB PO SCH ×3 (06:22→20:34)
[2020-04-04] MEDS: traMADol 50 MG TAB PO PRN ×2 (06:23→18:29)
[2020-04-04] MEDS: TIOTROPIUM INHALER/CAPSULE (SPIRIVA) INH SCH (07:52)
[2020-04-04] MEDS: SYMBICORT 160/4.5MCG INHALER 6GM INH SCH ×2 (07:52→20:50)
[2020-04-04] MEDS: MIRALAX *UNIT DOSE* 17GM PACKET PO SCH (07:57)
[2020-04-04] MEDS: METAMUCIL (PSYLLIUM) PACKET PO SCH (07:57)
[2020-04-04] MEDS: BACTRIM 160MG/800MG DS TAB PO SCH ×2 (07:58→20:34)
[2020-04-04] MEDS: ASPIRIN 81 MG ENTERIC TAB PO SCH (07:58)
[2020-04-04] MEDS: PREGABALIN 75 MG CAP(LYRICA) PO SCH ×2 (07:58→20:34)
[2020-04-04] MEDS: PARoxetine 20MG TABLET PO SCH (07:58)
[2020-04-04] MEDS: MONTELUKAST 10 MG TAB PO SCH (07:58)
[2020-04-04] MEDS: CETIRIZINE (ZyrTEC) 10 MG TAB PO SCH (07:58)
[2020-04-04] MEDS: HumaLOG INSULIN (NovoLOG) PER UNIT SC SCH ×4 (07:59→20:38)
[2020-04-04 14:00] VITALS: BP 136/67
[2020-04-04 16:10] VITALS: O2SAT 92
--- NOTE | 2020-04-04 16:12 | CR ---
CONSULTATION DATE: 04/04/2020 REASON FOR CONSULTATION: Nuria is seen on [facility]. She is status post spinal surgery, lumbar, by Dr. Cavazos on 04/01/2020. Postop course has been unremarkable. She has a history of chronic obstructive pulmonary disease, obstructive sleep apnea, type-2 diabetes with neuropathy, hyperlipidemia, coronary artery disease status post coronary artery stents in 2018, chronic anxiety and depression, and chronic neuropathy with chronic pain for which she previously took Lyrica. She denies any chest pain, shortness of breath, dyspnea on exertion, fevers or chills. PHYSICAL EXAMINATION: Vital signs: Blood pressure 118/61, pulse 92, respirations 18, 88% O2 saturation. General appearance: She is mildly uncomfortable. She says she is constipated and has taken a number of bowel medications today to try to relieve that. Lungs: Clear. Heart: Regular rate and rhythm. Abdomen: Soft, nontender, nondistended, good bowel sounds. Extremities: No clubbing, cyanosis, or edema. No labs ordered for today. IMPRESSION/PLAN: The patient is medically stable and she should be able to be discharged if she has a bowel movement. She will resume her usual medications after discharge. I asked the nursing staff to call me should she be discharged and I can finalize her medications.
[2020-04-04 20:00] VITALS: BP 151/72
[2020-04-04] MEDS: EZETIMIBE 10 MG TAB (ZETIA) PO SCH (20:33)
[2020-04-04] MEDS: ATORVASTATIN 20 MG TAB PO SCH (20:34)
[2020-04-04] MEDS: OMEPRAZOLE 20 MG CAP PO SCH (20:34)
[2020-04-05] MEDS: ACETAMINOPHEN 500 MG TAB PO SCH ×3 (05:45→21:23)
[2020-04-05 06:00] VITALS: BP 116/66
[2020-04-05] MEDS: HumaLOG INSULIN (NovoLOG) PER UNIT SC SCH ×4 (07:39→21:00)
[2020-04-05] MEDS: traMADol 50 MG TAB PO PRN ×2 (07:43→12:26)
--- NOTE | 2020-04-05 08:20 | IPNPDOC ---
Text Note Date of Service The patient was seen on 04/05/20. NOTE Subjective: Patient doing well overnight. saturating 99% on 2L which she says is her home dose. Continues to endorse constipation. Says back pain is 7/10. Is able to walk without issues Objective: Constitutional: alert, oriented. NAD HEENT: [place], EOMI Cardiovascular: HS 1+ 2 present, no added sounds or murmurs Lungs: Clear to auscultation bilaterally Abdomen: No pain on palpation. BS + Extremities: No edema Assessment/Plan: This is a 69 year old female with PMH of COPD , interstitial fibrosis, chronic resp failure on home oxygen, DONTE on CPAP, cad s/p stents, DM, HTn, HLD, GERD, Anxiety, depression, Lumbar spondylolisthesis, symptotic with lumbar radiculopathy, most notably at L4, L5, and S1. She was admitted by Dr Cavazos for a right unilateral laminectomy at L4, L5, S1 with posterior spinal fusion, L4, L5, and S1 with the use of pedicle screws, right or left iliac crest graft, and also use of Vivigen bone graft as well. She underwent surgery today. It was a 4 hour procedure. The surgery was uneventful and patient doing well post op. Hospitalist was consulted for the management of her multiple medical comorbidities. #Elective Lumbar laminectomy, spinal fusion and bone graft placement -Operation date 04/01 -Management per Ortho. -Bactrim PPX ordered. Will call ortho tomorrow to determine duration and follow up. -Pain well controlled without opioid medications although she has required tylenol -PT consulted --> May discharge home #COPD / Chronic interstitial pulmonary fibrosis/ chronic respiratory failure with hypoxia -continue symbicort, spiriva, albuterol prn -As per patient, she is on 2L at home. Saturating well on 2L in house. She also endorses using 6L at night with CPAP -Not in acute exacerbation. Not on steroids for pulm fibrosis #DONTE on CPAP -Patient uses own CPAP #DM2 with Neuropathy -Controlled. -Home medication metformin held due to inpatient status -C/W ISS and Lyrica #DLP -c/w home medications atorvastatin and ezetimibe #CAD status post 2 stents (2017) -C/W home medications ASA, betablocker and statin. #GERD -c/w home medication omeprazole #Depression and anxiety -c/w home medication paroxetine #Chronic neuropathy and chronic pain -c/w home medications lyrica #Allergic rhinitis -c/w home medications cetrizine, singulair. Case discussed with Dr. Lauren Cook MD Hospitalist Resident Baljeet PEÑA, I+Baljeet OSORIO I+O Vital Signs Date Time Temp Pulse Resp B/P (MAP) Pulse Ox O2 Delivery O2 Flow Rate FiO2 04/05/20 07:43 18 04/05/20 06:00 98.1 68 116/66 (83) 99 High Flow Cannula 2.0 I&O- Last 24 Hours up to 6 AM 04/05/20 06:00 Intake Total 910 ml Output Total 1200 ml Balance -290 ml GME ATTESTATION GME ATTESTATION My faculty preceptor for this patient encounter was physically present during the encounter and was fully available. All aspects of the patient interview, examination, medical decision making process, and medical care plan development were reviewed and approved by the faculty preceptor. The faculty preceptor is aware and concurs with the plan as stated in the body of this note and will attest to such by his/her cosignature. ATTENDING NOTE IJoyce, have independently examined this patient and performed my own physical exam, as well as reviewed the documentation and edited where necessary. I have discussed in detail with the resident / student the findings and plan of treatment as documented by the resident / student and edited their note. I agree with their findings and treatment plan and have edited their documentation. I will continue to follow the patient during this hospital stay. NESSA COOK M.D.,PGY-2 Apr 05, 2020 08:20 BA ROJO MD Apr 06, 2020 15:43
--- NOTE | 2020-04-05 08:31 | REP ---
INDICATION: persistent constipation COMPARISON: None. TECHNIQUE: Supine view of the abdomen and pelvis. FINDINGS: Moderate to significant fecal stasis noted. No obvious organomegaly. Skeletal structures demonstrate age-related osteopenia and degenerative changes. IMPRESSION: Moderate to significant diffuse fecal stasis. <Electronically signed by Raphael Santos > 04/05/20 [id number]
[2020-04-05 08:51] LABS: HEMATOCRIT 27.3 % (36.0-47.0); HEMOGLOBIN 8.4 g/dl (12.0-15.5); MEAN CORPUSCULAR HEMOGLOBIN 27.8 pg (27.0-33.0); MEAN CORPUSCULAR HGB CONC 30.8 g/dl (32.0-36.5); MEAN CORPUSCULAR VOLUME 90.4 fl (80.0-96.0); PLATELET COUNT, AUTOMATED 312 10^3/uL (150-450); RED BLOOD COUNT 3.02 10^6/uL (4.00-5.40); WHITE BLOOD COUNT 12.1 10^3/uL (4.0-10.0)
[2020-04-05] MEDS: TIOTROPIUM INHALER/CAPSULE (SPIRIVA) INH SCH (08:51)
[2020-04-05] MEDS: SYMBICORT 160/4.5MCG INHALER 6GM INH SCH ×2 (08:51→20:45)
[2020-04-05] MEDS: MIRALAX *UNIT DOSE* 17GM PACKET PO SCH (09:11)
[2020-04-05] MEDS: METAMUCIL (PSYLLIUM) PACKET PO SCH (09:11)
[2020-04-05] MEDS: BACTRIM 160MG/800MG DS TAB PO SCH ×2 (09:11→21:23)
[2020-04-05] MEDS: PREGABALIN 75 MG CAP(LYRICA) PO SCH ×2 (09:11→21:24)
[2020-04-05] MEDS: MONTELUKAST 10 MG TAB PO SCH (09:11)
[2020-04-05] MEDS: CETIRIZINE (ZyrTEC) 10 MG TAB PO SCH (09:12)
[2020-04-05] MEDS: PARoxetine 20MG TABLET PO SCH (09:12)
[2020-04-05] MEDS: ASPIRIN 81 MG ENTERIC TAB PO SCH (09:12)
[2020-04-05 09:22] LABS: ALBUMIN 2.8 GM/DL (3.2-5.2); ALT/SGPT 35 U/L (12-78); BILIRUBIN,TOTAL 0.2 MG/DL (0.2-1.0); BLOOD UREA NITROGEN 13 MG/DL (7-18); CALCIUM LEVEL 8.5 MG/DL (8.8-10.2); CARBON DIOXIDE LEVEL 24 MEQ/L (21-32); CHLORIDE LEVEL 106 MEQ/L (98-107); CREATININE FOR GFR 0.87 MG/DL (0.55-1.30); GLOMERULAR FILTRATION RATE > 60.0 (>39); GLUCOSE, FASTING 184 MG/DL (70-100); POTASSIUM SERUM 4.4 MEQ/L (3.5-5.1); SODIUM LEVEL 138 MEQ/L (136-145); TOTAL PROTEIN 6.4 GM/DL (6.4-8.2)
[2020-04-05 14:00] VITALS: BP 124/67
[2020-04-05] MEDS ORDERED: FLEET ENEMA PR PRN (15:15)
[2020-04-05] MEDS ORDERED: FLEET ENEMA PR ONE ×2 (15:30→15:45)
[2020-04-05] MEDS ORDERED: LACTULOSE 20 GM/30 ML SYRUP UD PO ONE (16:00)
[2020-04-05 17:40] VITALS: O2SAT 91
[2020-04-05] MEDS ORDERED: SENOKOT S TAB PO SCH (21:00)
[2020-04-05] MEDS ORDERED: ENOXAPARIN 40MG/0.4ML SYRINGE (J1650 PER 10MG) SC SCH (21:00)
[2020-04-05] MEDS: OMEPRAZOLE 20 MG CAP PO SCH (21:23)
[2020-04-05] MEDS: EZETIMIBE 10 MG TAB (ZETIA) PO SCH (21:23)
[2020-04-05] MEDS: ATORVASTATIN 20 MG TAB PO SCH (21:23)
[2020-04-06] MEDS: ACETAMINOPHEN 500 MG TAB PO SCH (05:10)
[2020-04-06 06:00] VITALS: BP 141/63
--- NOTE | 2020-04-06 07:26 | IPNPDOC ---
Text Note Date of Service The patient was seen on 04/06/20. NOTE Subjective: Patient doing well overnight. saturating 99% on 2L which she says is her home dose. Notes BM yesterday, normal. Leg pain is gone and back pain is 6/10 which is improved from yesterday. Toes continue to have numbness and tingling, but this is longstanding likely 2/2 to diabetes as per patient. Has back brace in place and CPAP and bedside. Objective: Constitutional: alert, oriented. NAD HEENT: [place], EOMI Cardiovascular: HS 1+ 2 present, no added sounds or murmurs Lungs: Clear to auscultation bilaterally Back: has longitudinal lumbar scar. Mildly tender to palpation. No erythema surrounding area. Back brace in place Abdomen: No pain on palpation. BS + Extremities: No edema Assessment/Plan: This is a 69 year old female with PMH of COPD , interstitial fibrosis, chronic resp. failure on home oxygen, DONTE on CPAP, cad s/p stents, DM, HTN, HLD, GERD, Anxiety, depression, Lumbar spondylolisthesis, symptomatic with lumbar radiculopathy, most notably at L4, L5, and S1. She was admitted by Dr Cavazos for a right unilateral laminectomy at L4, L5, S1 with posterior spinal fusion, L4, L5, and S1 with the use of pedicle screws, right or left iliac crest graft, and also use of Vivigen bone graft. Surgery date was 04/01 and patient doing well post-op. Hospitalist was consulted for the management of her multiple medical comorbidities. #Elective Lumbar laminectomy, spinal fusion and bone graft placement -Operation date 04/01 -Management per Ortho. -Bactrim PPX ordered per ortho for clinical picture of UTI. Symptoms have resolved as per patient -Cleared by ortho on 04/06 for discharge -Pain well controlled without opioid medications although she has required tylenol -PT consulted --> May discharge home #COPD / Chronic interstitial pulmonary fibrosis/ chronic respiratory failure with hypoxia -Continue symbicort, spiriva, albuterol prn -As per patient, she is on 2L at home. Saturating well on 2L in house. She also endorses using 6L at night with CPAP -Not in acute exacerbation. Not on steroids for pulm fibrosis #DONTE on CPAP -Patient uses own CPAP #DM2 with Neuropathy -Controlled. -Home medication metformin held due to inpatient status -C/W ISS and Lyrica #DLP -c/w home medications atorvastatin and ezetimibe #CAD status post 2 stents (2018) -C/W home medications ASA, betablocker and statin. #GERD -c/w home medication omeprazole #Depression and anxiety -c/w home medication paroxetine #Chronic neuropathy and chronic pain -c/w home medications lyrica #Allergic rhinitis -c/w home medications cetrizine, singulair. Case discussed with Dr. Lauren Cook MD Hospitalist Resident Baljeet PEÑA, I+O Baljeet PEÑA I+O Laboratory Tests 04/05/20 08:34 Vital Signs Date Time Temp Pulse Resp B/P (MAP) Pulse Ox O2 Delivery O2 Flow Rate FiO2 04/06/20 06:00 99.5 77 20 141/63 (89) 97 NIPPV (BIPAP/CPAP) 04/05/20 20:00 3.0 I&O- Last 24 Hours up to 6 AM 04/06/20 06:00 Intake Total 300 ml Output Total 400 ml Balance -100 ml GME ATTESTATION GME ATTESTATION My faculty preceptor for this patient encounter was physically present during the encounter and was fully available. All aspects of the patient interview, examination, medical decision making process, and medical care plan development were reviewed and approved by the faculty preceptor. The faculty preceptor is aware and concurs with the plan as stated in the body of this note and will attest to such by his/her cosignature. ATTENDING NOTE IJoyce, have independently examined this patient and performed my own physical exam, as well as reviewed the documentation and edited where necessary. I have discussed in detail with the resident / student the findings and plan of treatment as documented by the resident / student and edited their note. I agree with their findings and treatment plan and have edited their documentation. I will continue to follow the patient during this hospital stay. Plan for discharge by orthopedics team is primary today NESSA COOK M.D.,PGY-2 Apr 06, 2020 07:26 BA ROJO MD Apr 06, 2020 15:43
[2020-04-06 07:36] LABS: BASO # 0.1 10^3/uL (0.0-0.2); BASO % 1.2 % (0.0-1.0); EOS # 0.3 10^3/uL (0.0-0.5); EOS % 3.3 % (0.0-3.0); HEMATOCRIT 26.4 % (36.0-47.0); HEMOGLOBIN 8.1 g/dl (12.0-15.5); LYMPH # 1.6 10^3/uL (1.5-5.0); LYMPH % 15.5 % (24.0-44.0); MEAN CORPUSCULAR HGB CONC 30.7 g/dl (32.0-36.5); MEAN CORPUSCULAR VOLUME 91.3 fl (80.0-96.0); MONO % 9.4 % (0.0-5.0); NEUTROPHILS % 67.8 % (36.0-66.0); PLATELET COUNT, AUTOMATED 312 10^3/uL (150-450); RED BLOOD COUNT 2.89 10^6/uL (4.00-5.40); WHITE BLOOD COUNT 10.3 10^3/uL (4.0-10.0)
[2020-04-06 08:04] LABS: BLOOD UREA NITROGEN 14 MG/DL (7-18); CALCIUM LEVEL 8.3 MG/DL (8.8-10.2); CARBON DIOXIDE LEVEL 27 MEQ/L (21-32); CHLORIDE LEVEL 104 MEQ/L (98-107); CREATININE FOR GFR 0.94 MG/DL (0.55-1.30); GLOMERULAR FILTRATION RATE > 60.0 (>39); GLUCOSE, FASTING 128 MG/DL (70-100); SODIUM LEVEL 138 MEQ/L (136-145)
[2020-04-06] MEDS: TIOTROPIUM INHALER/CAPSULE (SPIRIVA) INH SCH (08:23)
[2020-04-06] MEDS: SYMBICORT 160/4.5MCG INHALER 6GM INH SCH (08:23)
[2020-04-06] MEDS: HumaLOG INSULIN (NovoLOG) PER UNIT SC SCH (08:47)
--- NOTE | 2020-04-09 11:14 | DSES ---
DISCHARGE SUMMARY DATE OF ADMISSION: 04/01/2020 DATE OF DISCHARGE: 04/06/2020 ATTENDING PHYSICIAN: Warner Cavazos M.D. ADMITTING DIAGNOSIS: Lumbar spinal stenosis and spondylolisthesis with radiculopathy most notably at L4, 5 and S1. OTHER DIAGNOSES: 1. Sleep apnea. 2. Heart disease. 3. Stage 3 chronic kidney disease. 4. Chronic hypoxemic respiratory failure. 5. Chronic obstructive pulmonary disease. 6. Gastroesophageal reflux disease. 7. Hyperlipidemia. 8. Type-2 diabetes. 9. Supplemental oxygen use with ambulating. 10. Osteopenia. 11. B12 deficiency. 12. Macular degeneration. 13. Anxiety. DISCHARGE DIAGNOSIS: Lumbar spinal stenosis and spondylolisthesis with radiculopathy status post right unilateral laminectomy at L4, L5 and S1 with posterior spinal fusion and use of pedicle screws and bone graft. HISTORY: Patient is a 69-year-old female with progressively worsening back pain that has failed to improve with conservative management to include physical therapy, activity modification, medications and injections. She continued to have pain with weightbearing activities and activities of daily living. It does down into her right leg and gives her difficulties doing her normal day to day activities. She has elected for surgery for her continued symptoms. She has been consented by Dr. Cavazos for a right unilateral laminectomy at L4, L5 and S1 with posterior fusion at those levels with the use of pedicle screws and bone graft. OPERATION PERFORMED: Right L4 unilateral laminectomy for decompression of the thecal sac and exiting nerve root, right L5 unilateral laminectomy for decompression of the thecal sac and traversing nerve root bilaterally, posterior spinal fusion intra traverse at L4-5, posterior spinal fusion additional level intra traverse L5-S1, segmental instrumentation at L4, L5 and S1, bilateral pedicle screws, harvest and placement of morselized right iliac crest bone graft as well as local graft. HOSPITAL COURSE: The patient underwent a right unilateral laminectomy with posterior spinal fusion at L4, L5 and S1 with the use of pedicle screws, right iliac crest graft and local graft under general anesthesia which was uneventful. Her hospital course was without complication. Patient's hospital stay was extended secondary to management of her other comorbid medical conditions and pending a bowel movement. She was discharged on oral pain medications and will resume her pre-operative medications and diet. She will use her thromboembolic deterrent stockings and back brace as directed. She will follow up in our office in 7-10 days for a re-evaluation. She will give us a call sooner if there is any increase in pain, redness, drainage, numbness, tingling, weakness or radiating symptoms into the lower extremities, fevers greater than 101 degrees, problems with bowel or bladder control issues or any other concerns. Please see medical records for additional details.
== END 2020-04-06 09:10 | disposition home or self-care (01) | DRG 460 ==
LOC: M OR 06:06 → M MS5PR 16:00
PROVIDERS: ADMIT Orthopaedic Surgery; ATTEND Orthopaedic Surgery
PROC: 0QB30ZZ Excision of Left Pelvic Bone, Open Approach (ICD-10-PCS; 2020-04-01)
PROC: 0SG30AJ Fusion of Lumbosacral Joint with Interbody Fusion Device, Posterior Approach, Anterior Column, Open Approach (ICD-10-PCS; principal; 2020-04-01 07:30)
DX: M48.061 Spinal stenosis, lumbar region without neurogenic claudication (principal); J96.11 Chronic respiratory failure with hypoxia; N18.30 Chronic kidney disease, stage 3 unspecified; J44.9 Chronic obstructive pulmonary disease, unspecified; E11.22 Type 2 diabetes mellitus with diabetic chronic kidney disease; E78.5 Hyperlipidemia, unspecified; E53.8 Deficiency of other specified B group vitamins; F41.9 Anxiety disorder, unspecified; H35.30 Unspecified macular degeneration; K21.9 Gastro-esophageal reflux disease without esophagitis; Z79.899 Other long term (current) drug therapy; J84.10 Pulmonary fibrosis, unspecified; G47.33 Obstructive sleep apnea (adult) (pediatric); Z95.2 Presence of prosthetic heart valve; I25.10 Atherosclerotic heart disease of native coronary artery without angina pectoris; I12.9 Hypertensive chronic kidney disease with stage 1 through stage 4 chronic kidney disease, or unspecified chronic kidney disease; Z79.82 Long term (current) use of aspirin; Z88.0 Allergy status to penicillin; E11.40 Type 2 diabetes mellitus with diabetic neuropathy, unspecified; F17.200 Nicotine dependence, unspecified, uncomplicated; F32.9 Major depressive disorder, single episode, unspecified; Z96.642 Presence of left artificial hip joint

== ENCOUNTER → 2020-05-01 | Outpatient (CLI) | payer MEDICARE ==
[~2020-05-01] MED LIST changes: +BACT800T5 PO; +MONT10TA10 PO; -MONT5TAB2 PO; +PERC5TAB12 PO
== END ==
LOC: M PLALAB 13:36
PROVIDERS: ATTEND Internal Medicine Endocrinology, Diabetes & Metabolism
DX: M81.0 Age-related osteoporosis without current pathological fracture (principal)

== ENCOUNTER → 2020-07-03 | Outpatient (CLI) | payer MEDICARE ==
[~2020-07-03] MED LIST changes: +ASPI-569 PO; -ASPI81TAEC PO
--- NOTE | 2020-07-03 16:06 | REP ---
INDICATION: ABN FINDINGS OF LUNG FIELD. CT study from September 14, 2019 showed right middle lobe collapse with irregular air bronchograms question endobronchial lesion. COMPARISON: Comparison chest CT studies October 03, 2019, September 14, 2019, and January 14, 2018.. TECHNIQUE: Helical scanning is acquired. 3 mm axial images are generated. Coronal and sagittal MPR and coronal MIP images are generated. FINDINGS: Preliminary digital retail link analyst radiograph is unremarkable. The lungs are hyperinflated as before. There are advanced emphysematous changes throughout the upper lobes bilaterally and to a lesser extent in the lower lobes. There is no evidence of right middle lobe collapse or endobronchial lesion today. The right middle lobe remains aerated. No lung mass or significant new pulmonary embolus is seen. Vascular calcification is noted in the coronary distribution question left coronary artery stenting. No hilar or mediastinal mass or adenopathy is observed. No pleural or pericardial effusion is seen. Normal adrenal glands are seen in the upper abdomen. Upper abdominal structures are otherwise unremarkable. IMPRESSION: Advanced COPD emphysematous changes. No evidence of endobronchial lesion or right middle lobe recurrent collapse. No new mass or significant pulmonary nodule seen. <Electronically signed by Ronald Lundy > 07/03/20 [id number]
== END ==
LOC: M RAD 14:03
PROVIDERS: ATTEND Internal Medicine Pulmonary Disease
DX: J44.9 Chronic obstructive pulmonary disease, unspecified (principal); Z95.5 Presence of coronary angioplasty implant and graft

== ENCOUNTER → 2020-10-30 | Outpatient (CLI) | payer MEDICARE ==
[~2020-10-30] MED LIST changes: +OMEP40CA4 PO; -OMEP40CA97 PO
[2020-10-30 16:46] LABS: CALCIUM LEVEL 9.7 MG/DL (8.8-10.2)
[2020-10-30 17:02] LABS: TOTAL 25(OH) VITAMIN D 52.3 NG/ML (30.0-100.0)
== END ==
LOC: M WUC 13:01
PROVIDERS: ATTEND Internal Medicine Endocrinology, Diabetes & Metabolism
DX: M81.0 Age-related osteoporosis without current pathological fracture (principal); E55.9 Vitamin D deficiency, unspecified

== ENCOUNTER → 2020-11-07 | Outpatient (CLI) | payer MEDICARE ==
--- NOTE | 2020-11-07 15:27 | REP ---
INDICATION: DYSPNEA. Chronic changes COMPARISON: 11/29/2019 TECHNIQUE: PA and lateral FINDINGS: Cardiomediastinal silhouette is unchanged. The heart is not enlarged. Bibasilar fibrotic changes are noted status quo. No acute patchy parenchymal opacities or pleural effusions are identified. 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 IMPRESSION: Stable appearing chronic changes <Electronically signed by Behzad Fenton > 11/07/20 [id number]
== END ==
LOC: M WUC 14:08
PROVIDERS: ATTEND Nurse Practitioner Adult Health
DX: R06.00 Dyspnea, unspecified (principal)

== ENCOUNTER → 2021-05-04 | Outpatient (CLI) | payer MEDICARE ==
[~2021-05-04] MED LIST changes: -MONT10TA10 PO; +MONT10TA97 PO
== END ==
LOC: M PLALAB 14:43
PROVIDERS: ATTEND Internal Medicine Endocrinology, Diabetes & Metabolism
DX: M81.0 Age-related osteoporosis without current pathological fracture (principal)

== ENCOUNTER → 2021-07-14 | Outpatient (CLI) | payer MEDICARE | LOC: M RAD 13:00 | PROVIDERS: ATTEND Internal Medicine Pulmonary Disease | DX: Z12.2 Encounter for screening for malignant neoplasm of respiratory organs (principal); Z87.891 Personal history of nicotine dependence; J84.10 Pulmonary fibrosis, unspecified; J43.9 Emphysema, unspecified ==

== ENCOUNTER → 2022-04-14 | Outpatient (REF) | payer MEDICARE ==
[~2022-04-14] MED LIST changes: +ALBU2.5V10 INH; -ALBU83IN INH; +NYST-38 SS; -NYST50SS SS
== END ==
LOC: M LAB REF 16:04
PROVIDERS: ATTEND Nurse Practitioner Adult Health
DX: R30.0 Dysuria (principal)

== ENCOUNTER → 2022-05-11 | Outpatient (CLI) | payer MEDICARE | LOC: M PLALAB 15:25 | PROVIDERS: ATTEND Nurse Practitioner Family | DX: M81.0 Age-related osteoporosis without current pathological fracture (principal) ==

== ENCOUNTER → 2022-06-10 | Outpatient (REF) | payer MEDICARE | LOC: M LAB REF 16:27 | PROVIDERS: ATTEND Nurse Practitioner Adult Health | DX: M87.051 Idiopathic aseptic necrosis of right femur (principal) ==

== ENCOUNTER → 2022-08-04 | Outpatient (CLI) | payer MEDICARE ==
[~2022-08-04] MED LIST changes: +ALBU8.5H INH; +REPA140I2
== END ==
LOC: M PLAIMG 12:25
DX: J32.9 Chronic sinusitis, unspecified (principal)

== ENCOUNTER → 2022-08-30 | Outpatient (CLI) | payer MEDICARE | LOC: M RAD 09:40 | PROVIDERS: ATTEND Orthopaedic Surgery | DX: M89.9 Disorder of bone, unspecified (principal); G89.29 Other chronic pain; M25.551 Pain in right hip; Z96.652 Presence of left artificial knee joint | CPT/HCPCS: 78306; A9503 ==

== ENCOUNTER → 2022-09-20 | Outpatient (CLI) | payer MEDICARE | LOC: M RAD 12:43 | PROVIDERS: ATTEND Internal Medicine Pulmonary Disease | DX: Z87.891 Personal history of nicotine dependence (principal) ==

== ENCOUNTER → 2022-10-01 | Outpatient (REF) | payer MEDICARE | LOC: M LAB REF 16:25 | PROVIDERS: ATTEND Nurse Practitioner Family | DX: N39.0 Urinary tract infection, site not specified (principal) ==

== ENCOUNTER → 2022-11-15 | Outpatient (REF) | payer MEDICARE | LOC: M LAB REF 16:41 | PROVIDERS: ATTEND Nurse Practitioner Adult Health | DX: N39.0 Urinary tract infection, site not specified (principal) ==

== ENCOUNTER → 2022-12-22 | Outpatient (CLI) | payer MEDICARE | LOC: M PLALAB 13:21 | PROVIDERS: ATTEND Internal Medicine Endocrinology, Diabetes & Metabolism | DX: M81.0 Age-related osteoporosis without current pathological fracture (principal) ==

== ENCOUNTER → 2023-01-18 | Outpatient (REF) | payer MEDICARE | LOC: M LAB REF 17:47 | PROVIDERS: ATTEND Internal Medicine | DX: N39.0 Urinary tract infection, site not specified (principal) ==

== ENCOUNTER → 2023-02-01 | Outpatient (REF) | payer MEDICARE | LOC: M LAB REF 19:00 | PROVIDERS: ATTEND Nurse Practitioner Family | DX: M81.0 Age-related osteoporosis without current pathological fracture (principal) ==

== ENCOUNTER → 2023-02-11 | Outpatient (CLI) | payer MEDICARE | LOC: M RAD 13:27 | PROVIDERS: ATTEND Internal Medicine Medical Oncology | DX: D47.2 Monoclonal gammopathy (principal); M47.812 Spondylosis without myelopathy or radiculopathy, cervical region; Z98.1 Arthrodesis status; M19.011 Primary osteoarthritis, right shoulder; M19.012 Primary osteoarthritis, left shoulder; Z96.642 Presence of left artificial hip joint; M41.9 Scoliosis, unspecified ==

== ENCOUNTER → 2023-03-08 | Outpatient (CLI) | payer MEDICARE | LOC: M WUC 15:15 | PROVIDERS: ATTEND Internal Medicine Endocrinology, Diabetes & Metabolism | DX: M81.0 Age-related osteoporosis without current pathological fracture (principal) ==

== ENCOUNTER → 2023-03-16 | Outpatient (REF) | payer MEDICARE ==
[2023-03-16 18:10] LABS: IMMUNOGLOBULIN A 108.6 MG/DL (40-350); PTH INTACT 35.1 PG/ML (18.5-88.0)
[2023-03-16 18:20] LABS: IMMUNOGLOBULIN M 416.4 MG/DL (50-300)
== END ==
LOC: M LAB REF 16:42
PROVIDERS: ATTEND Internal Medicine
DX: E83.52 Hypercalcemia (principal); D47.2 Monoclonal gammopathy

== ENCOUNTER → 2023-05-05 | Outpatient (CLI) | payer MEDICARE ==
[~2023-05-05] MED LIST changes: +PRED10TA2
== END ==
LOC: M PLALAB 10:05
PROVIDERS: ATTEND Nurse Practitioner Family
DX: M81.0 Age-related osteoporosis without current pathological fracture (principal)

== ENCOUNTER → 2023-05-05 | Outpatient (CLI) | payer MEDICARE ==
[~2023-05-05] MED LIST changes: +PROHANCE 279.3MG/ML 15ML VIAL ONE
== END ==
LOC: M PLAIMG 09:45
PROVIDERS: ATTEND Orthopaedic Surgery
DX: M87.051 Idiopathic aseptic necrosis of right femur (principal); M76.891 Other specified enthesopathies of right lower limb, excluding foot; M81.0 Age-related osteoporosis without current pathological fracture
CPT/HCPCS: 36415; 73723; 82310; A9576

== ENCOUNTER → 2023-05-12 | Outpatient (CLI) | payer MEDICARE ==
[~2023-05-12] MED LIST changes: +ISOVUE-370 76% 100ML VIAL As Ordered ONE; -PROHANCE 279.3MG/ML 15ML VIAL ONE
== END ==
LOC: M RAD 08:05
PROVIDERS: ATTEND Internal Medicine
DX: J44.9 Chronic obstructive pulmonary disease, unspecified (principal); J84.10 Pulmonary fibrosis, unspecified; R05.9 Cough, unspecified
CPT/HCPCS: 71275; 87070; 87205; Q9967

== ENCOUNTER → 2023-05-12 | Outpatient (REF) | payer MEDICARE ==
[~2023-05-12] MED LIST changes: -ISOVUE-370 76% 100ML VIAL As Ordered ONE
== END ==
LOC: M LAB REF 09:54
PROVIDERS: ATTEND Internal Medicine
DX: R05.9 Cough, unspecified (principal)

== ENCOUNTER → 2023-06-02 | Outpatient (CLI) | payer MEDICARE ==
[~2023-06-02] MED LIST changes: +ISOVUE-370 76% 100ML VIAL ONE
== END ==
LOC: M PLAIMG 10:28
PROVIDERS: ATTEND Internal Medicine
DX: H92.01 Otalgia, right ear (principal); J32.9 Chronic sinusitis, unspecified
CPT/HCPCS: 70460; Q9967

== ENCOUNTER → 2023-06-06 | Outpatient (CLI) | payer MEDICARE ==
[~2023-06-06] MED LIST changes: -ISOVUE-370 76% 100ML VIAL ONE
== END ==
LOC: M PLALAB 14:30
PROVIDERS: ATTEND Internal Medicine Endocrinology, Diabetes & Metabolism
DX: M81.0 Age-related osteoporosis without current pathological fracture (principal)

== ENCOUNTER → 2023-07-20 | Outpatient (CLI) | payer MEDICARE | LOC: M PLALAB 14:25 | PROVIDERS: ATTEND Internal Medicine Endocrinology, Diabetes & Metabolism | DX: M81.0 Age-related osteoporosis without current pathological fracture (principal) ==

== ENCOUNTER → 2023-08-18 | Outpatient (REF) | payer MEDICARE ==
[2023-08-18 19:25] LABS: CALCIUM LEVEL 9.3 MG/DL (8.3-10.6)
[2023-08-18 19:30] LABS: TOTAL 25(OH) VITAMIN D 39.4 NG/ML (20.0-100.0)
== END ==
LOC: M LABWUC 16:34
PROVIDERS: ATTEND Internal Medicine Endocrinology, Diabetes & Metabolism
DX: M81.0 Age-related osteoporosis without current pathological fracture (principal)

== ENCOUNTER → 2023-09-20 | Outpatient (CLI) | payer MEDICARE | LOC: M PLAIMG 09:10 | PROVIDERS: ATTEND Physician Assistant | DX: M51.26 Other intervertebral disc displacement, lumbar region (principal); Z95.5 Presence of coronary angioplasty implant and graft; Z96.642 Presence of left artificial hip joint; M47.817 Spondylosis without myelopathy or radiculopathy, lumbosacral region; M48.061 Spinal stenosis, lumbar region without neurogenic claudication ==

== ENCOUNTER → 2023-10-03 | Outpatient (REF) | payer MEDICARE | LOC: M LABWUC 17:07 | PROVIDERS: ATTEND Internal Medicine Endocrinology, Diabetes & Metabolism | DX: M81.0 Age-related osteoporosis without current pathological fracture (principal) ==

== ENCOUNTER → 2023-10-20 | Outpatient (CLI) | payer MEDICARE | LOC: M PLARAD 14:46 | PROVIDERS: ATTEND Internal Medicine | DX: H92.01 Otalgia, right ear (principal); R90.82 White matter disease, unspecified; H70.91 Unspecified mastoiditis, right ear ==

== ENCOUNTER → 2023-11-15 | Outpatient (CLI) | payer MEDICARE | LOC: M WUC 14:00 | PROVIDERS: ATTEND Nurse Practitioner Family | DX: M81.0 Age-related osteoporosis without current pathological fracture (principal) ==

== ENCOUNTER → 2023-12-05 | Outpatient (CLI) | payer MEDICARE | LOC: M WHC 10:28 | PROVIDERS: ATTEND Internal Medicine Endocrinology, Diabetes & Metabolism | DX: M81.0 Age-related osteoporosis without current pathological fracture (principal) ==

== ENCOUNTER → 2024-01-06 | Outpatient (CLI) | payer MEDICARE ==
[~2024-01-06] MED LIST changes: +BUDE10.7 IH; +GABA-1490; -GABA600T4
== END ==
LOC: M WHC 13:58
PROVIDERS: ATTEND Internal Medicine Medical Oncology
DX: Z12.31 Encounter for screening mammogram for malignant neoplasm of breast (principal)

== ENCOUNTER → 2024-01-16 | Outpatient (CLI) | payer MEDICARE | LOC: M RAD 14:16 | PROVIDERS: ATTEND Physician Assistant | DX: Z98.1 Arthrodesis status (principal); K57.30 Diverticulosis of large intestine without perforation or abscess without bleeding; Z96.642 Presence of left artificial hip joint; M87.851 Other osteonecrosis, right femur; I70.90 Unspecified atherosclerosis ==

== ENCOUNTER → 2024-01-25 | Outpatient (CLI) | payer MEDICARE | LOC: M RAD 11:51 | PROVIDERS: ATTEND Internal Medicine | DX: R74.01 Elevation of levels of liver transaminase levels (principal) ==

== ENCOUNTER → 2024-05-31 | Outpatient (CLI) | payer MEDICARE | LOC: M RAD 16:38 | PROVIDERS: ATTEND Internal Medicine Pulmonary Disease | DX: Z12.2 Encounter for screening for malignant neoplasm of respiratory organs (principal); Z87.891 Personal history of nicotine dependence; J43.2 Centrilobular emphysema; J98.11 Atelectasis; J84.10 Pulmonary fibrosis, unspecified; I25.10 Atherosclerotic heart disease of native coronary artery without angina pectoris; I70.0 Atherosclerosis of aorta ==

== ENCOUNTER → 2024-06-12 | Outpatient (CLI) | payer MEDICARE ==
[~2024-06-12] MED LIST changes: +IPRA0.00
[2024-06-12 18:54] LABS: BASO # 0.1 10^3/uL (0.0-0.2); BASO % 1.3 % (0.0-1.0); EOS # 0.3 10^3/uL (0.0-0.5); EOS % 3.2 % (0.0-3.0); HEMOGLOBIN 12.3 g/dl (12.0-15.5); LYMPH # 2.7 10^3/uL (1.5-5.0); LYMPH % 30.6 % (24.0-44.0); MEAN CORPUSCULAR HEMOGLOBIN 30.6 pg (27.0-33.0); MEAN CORPUSCULAR HGB CONC 32.4 g/dl (32.0-36.5); MEAN CORPUSCULAR VOLUME 94.5 fl (80.0-96.0); MONO # 0.8 10^3/uL (0.0-0.8); MONO % 9.4 % (2.0-8.0); NEUTROPHILS # 4.7 10^3/uL (1.5-8.5); NEUTROPHILS % 54.6 % (36.0-66.0); PLATELET COUNT, AUTOMATED 361 10^3/uL (150-450); RED BLOOD COUNT 4.02 10^6/uL (4.00-5.40); WHITE BLOOD COUNT 8.7 10^3/uL (4.0-10.0)
[2024-06-12 19:27] LABS: ALBUMIN 3.8 G/DL (3.2-5.2); BILIRUBIN,TOTAL 0.4 MG/DL (0.3-1.2); CALCIUM LEVEL 9.7 MG/DL (8.3-10.6); CREATININE FOR GFR 1.19 MG/DL (0.55-1.30); GLOMERULAR FILTRATION RATE 47.1 (>39); POTASSIUM SERUM 4.3 MMOL/L (3.5-5.1); TOTAL PROTEIN 7.3 G/DL (5.7-8.2)
[2024-06-12 19:49] LABS: IMMUNOGLOBULIN M 376.5 MG/DL (50-300)
[2024-06-14 11:27] LABS: T P ELECTROPHORESIS SO 7.3 g/dL (6.1-8.1)
[2024-06-14 14:16] LABS: FREE KAPPA LIGHT CHAINS SERUM 20.3 mg/L (3.3-19.4); FREE LAMBDA LIGHT CHAINS SERUM 12.5 mg/L (5.7-26.3); KAPPA/LAMBDA RATIO SERUM 1.62 (0.26-1.65)
[2024-06-15 07:12] LABS: ALBUMIN SPEP 4.1 g/dL (3.8-4.8); ALPHA-1-GLOBULINS SO 0.3 g/dL (0.2-0.3); ALPHA-2-GLOBULINS SO 0.8 g/dL (0.5-0.9); BETA 2 GLOBULIN 0.4 g/dL (0.2-0.5); BETA-GLOBULIN SO 0.5 g/dL (0.4-0.6); GAMMA GLOBULINS SO 1.2 g/dL (0.8-1.7); SPEP ABN PROTEIN BAND 1 0.4 g/dL (NONE DETECTED)
== END ==
LOC: M WUC 14:58
PROVIDERS: ATTEND Internal Medicine Medical Oncology
DX: D47.2 Monoclonal gammopathy (principal)

== ENCOUNTER 2025-02-27 17:30 | Emergency (ER) | payer MEDICARE ==
[~2025-02-27] VITALS: Ht 162.6 cm; Wt 60.3 kg
[~2025-02-27 17:30] MED LIST changes: +DENO60SY2 SC; +ERGO125013 PO; -EZET10TA21 PO; +EZET10TA57 PO; +FAMO1TAB11; -IBUP1TAB6 PO; -PRAV80TA2 PO; +PRAV80TA75 PO; -PROL60SO SC; +SFHIBU600 PO; +TIRZ7.5P; -VITA500045 PO
[2025-02-27 18:12] LABS: BASO # 0.1 10^3/uL (0.0-0.2); BASO % 0.7 % (0.0-1.0); EOS # 0.0 10^3/uL (0.0-0.5); EOS % 0.6 % (0.0-3.0); LYMPH # 0.7 10^3/uL (1.5-5.0); LYMPH % 9.3 % (24.0-44.0); MONO # 0.6 10^3/uL (0.0-0.8); MONO % 8.0 % (2.0-8.0); NEUTROPHILS # 5.7 10^3/uL (1.5-8.5); NEUTROPHILS % 81.0 % (36.0-66.0); PLATELET COUNT, AUTOMATED 306 10^3/uL (150-450)
[2025-02-27 18:38] LABS: CALCIUM LEVEL 9.0 MG/DL (8.3-10.6); CARBON DIOXIDE LEVEL 24.0 MMOL/L (20-31); CHLORIDE LEVEL 104.0 MMOL/L (98-107); CK-MB VALUE MASS 1.5 NG/ML (<3.6); CPK CREATINE PHOSPHOKINASE 108.0 U/L (34-145); CREATININE FOR GFR 0.72 MG/DL (0.55-1.30); GLOMERULAR FILTRATION RATE 86.6 (>39); MB/CK RELATIVE INDEX 1.38 (< OR =4); POTASSIUM SERUM 3.9 MMOL/L (3.5-5.1); SODIUM LEVEL 139.0 MMOL/L (136-145)
[2025-02-27] MEDS ORDERED: ISOVUE-370 76% 100 ML VIAL As Ordered ONE (18:53)
[2025-02-27] MEDS ORDERED: HEPARIN SOD 5000 UNITS/ML 1 ML VIAL/SYRINGE IV PRN (21:05)
[2025-02-27 21:47] LABS: INR 0.95
[2025-02-27] MEDS: HEPARIN SOD 5000 UNITS/ML 1 ML VIAL/SYRINGE IV ONE (21:55)
[2025-02-27] MEDS: HEPARIN DRIP 25,000 UNITS in IV 1 EA IV SCH (21:56)
[2025-02-27 22:11] VITALS: TEMP 98.9
[2025-02-27 22:23] VITALS: BP 119/59; O2SAT 99
== END 2025-02-27 22:29 | disposition short-term general hospital (02) ==
LOC: EDBD 17:30 → M ED 17:30
DX: I20.0 Unstable angina (principal); E11.9 Type 2 diabetes mellitus without complications; I10 Essential (primary) hypertension; E78.5 Hyperlipidemia, unspecified; K21.9 Gastro-esophageal reflux disease without esophagitis; J44.9 Chronic obstructive pulmonary disease, unspecified; Z95.1 Presence of aortocoronary bypass graft; Z98.61 Coronary angioplasty status; Z87.891 Personal history of nicotine dependence; Z79.4 Long term (current) use of insulin; Z79.82 Long term (current) use of aspirin; Z79.899 Other long term (current) drug therapy; Z88.0 Allergy status to penicillin; Z88.1 Allergy status to other antibiotic agents
CPT/HCPCS: 71045; 71275; 80048; 82550; 82553; 84484; 85025; 85610; 85730; 93005; 93041; 94760; 96365; 99285; Q9967